=== PATIENT | male | born 1955 | race Two or more races ===

== ENCOUNTER 2018-07-18 07:15 | Inpatient (IN) | payer MEDICAID ==
[2018-07-18 07:15] VITALS: BMI 27.8
--- NOTE | 2018-07-18 07:57 | C.PDOC ---
History Of Present Illness GEN WEAKNESS, WT LOSS X 4 MO. PS ONSET SINCE STARTING SAL[facility] 4 MO AGO FOR PSORIASIS, NOW RESOLVED. +OPTIC FIBRE DRAWER COUGH 2 MO AGO, SAW ENT FOR SAME COMPLETED UNK ABX X 5 DAYS. +SOB COUGH 1 MO AGO, EVAL BY PULM S/P OUTPT [facility] CT CHEST 05/2018 +B/L EFFUSIONS PER REPORT, [facility] 07/05/18 WNL. +WT LOSS 22 LBS IN 3 MO. NO ABD PAIN, NV, FOCAL WEAKNESS. DENIES HO SMOKING. COUGH INTERMIT "GETS BETTER BUT THEN COMES BACK". PREV ON LISINOPRIL BUT NO LONGER X 2 MO "BC MY PRESSURE WAS TOO LOW"/ EXAM NONTOXIC HEENT ANICTERIC LUNGS CTA B/L NO W/R/R ABD NEG NEURO NO FOCAL DEF REMAINDER NEG Time Seen by Provider: 07/18/18 07:39 Chief Complaint (Nursing): Weakness/Neurological Deficit History Per: Patient History/Exam Limitations: no limitations Onset/Duration Of Symptoms: Days Current Symptoms Are (Timing): Still Present Severity: Moderate Past Medical History Reviewed: Historical Data, Nursing Documentation, Vital Signs Vital Signs: Last Vital Signs Temp 98.1 F 07/18/18 07:23 Pulse 76 07/18/18 07:23 Resp 18 07/18/18 07:23 BP 118/81 07/18/18 07:23 Pulse Ox 96 07/18/18 07:23 - Medical History PMH: HTN, Pneumonia Surgical History: Denies: Pacemaker Family History: States: No Known Family Hx - Social History Hx Alcohol Use: No Hx Substance Use: No Review Of Systems Except As Marked, All Systems Reviewed And Found Negative. Constitutional: Positive for: Weakness, Weight loss. Negative for: Fever, Chills Respiratory: Positive for: Cough Gastrointestinal: Negative for: Nausea, Vomiting, Abdominal Pain Physical Exam - Physical Exam Appears: Non-toxic Skin: Warm, Dry Head: Atraumatic, Normacephalic Eye(s): bilateral: Normal Inspection, Other (anicteric) Nose: Normal Oral Mucosa: Moist Neck: Supple Chest: Symmetrical Cardiovascular: Rhythm Regular Respiratory: Normal Breath Sounds, No Rales, No Rhonchi, No Wheezing Gastrointestinal/Abdominal: Normal Exam, Soft, No Tenderness, No Guarding, No Rebound Neurological/Psych: Oriented x3, Normal Speech, Other (no focal deficits) ED Course And Treatment - Laboratory Results Result Diagrams: 07/18/18 08:16 07/18/18 08:16 ECG: Interpreted By Me ECG Rhythm: Sinus Rhythm ECG Interpretation: Normal Rate From EC O2 Sat by Pulse Oximetry: 96 (RA) Pulse Ox Interpretation: Normal - Other Rad CXR X-Ray: Viewed By Me, Read By Radiologist Interpretation: Date of service: 07/18/2018. HISTORY: weakness. COMPARISON: No prior. TECHNIQUE: Chest PA and lateral views. FINDINGS: LUNGS: Asymmetrical elevation of the right hemidiaphragm of unknown chronicity noted. No consolidation appreciated. PLEURA: No significant pleural effusion identified. No pneumothorax apparent. CARDIOVASCULAR: No aortic atherosclerotic calcification present. Normal cardiac size. No pulmonary vascular congestion. OSSEOUS STRUCTURES: No significant abnormalities. VISUALIZED UPPER ABDOMEN: Normal. OTHER FINDINGS: None. IMPRESSION: Asymmetrical elevation of the right hemidiaphragm of unknown chronicity. Otherwise unremarkable exam. - CT Scan/US CT-Chest/Abd/Pelv. Other Rad Studies (CT/US): Read By Radiologist, Radiology Report Reviewed CT/US Interpretation: CT chest, abdomen, and pelvis with IV contrast. Indication: WT LOSS, ABN LEFT. Technique: Contiguous axial images of the chest, abdomen, and pelvis. Coronal and Sagittal reformats generated and reviewed. This CT exam was performed using 1 or more of the following dose reduction techniques: Automated exposure control, adjustment of the MAA and/or kV according to patient size, and/or use of iterative reconstruction technique. Contrast: 100 mL Omnipaque 300 IV. Radiation dose: Total exam DLP = 810.41 MGy-cm. Comparison: None available. Findings: Visualized portions of the inferior thyroid gland demonstrates numerous too small to characterize hypodense nodules. The mediastinal and hilar vascular structures appear within normal limits. The heart appears within normal limits of size. Prevascular/Mediastinal adenopathy measuring up to approximately 9 mm in short axis (pretracheal). Small to moderate right and trace left pleural effusions and associated consolidations. Patchy infiltrate at the right lung base may represent superimposed infection. Cluster of nodules in the right upper lobe measuring up to 6 mm. Innumerable tiny splenic hypodensities, indeterminate but worrisome for metastatic disease. Hypoattenuation of the liver compatible with hepatic steatosis. Question presence of serosal implant anterior to the left lobe of the liver. The kidneys enhance symmetrically. No evidence of hydronephrosis or obstructing calculus. The adrenal glands and gallbladder appear unremarkable. Prominent sub cm mesenteric adenopathy. Evidence of omental metastases. The stomach is nondistended but appears abnormal, thick-walled and edematous. The bowel loops appear within normal limits of caliber without evidence of intestinal obstruction. Apparent enhancement of small bowel loops, nonspecific. No definite free air. The prostate gland measures approximately 3.6 x 4.6 cm, appears heterogeneous, and contains calcification. The urinary bladder appears unremarkable. Small to moderate pelvic free fluid. Degenerative changes. Imp ression: Numerous too small to characterize thyroid hypodense nodules, indeterminate. Small to moderate right and trace left pleural effusions and associated consolidations. Patchy infiltrate at the right lung base may represent superimposed infection. Cluster of nodules in the right lung upper l obe measuring up to 6 mm. Innumerable tiny splenic hypodensities which are indeterminate but worrisome for metastatic disease. Hypoattenuation of the liver compatible with hepatic steatosis. Question presence of serosal implant anterior to the left lobe of the liver. Evidence of omental metastases. The stomach is nondistended but appears abnormal, thick-walled and edematous. Suggest clinical correlation further evaluation with endoscopy if indicated. Malignant neoplasm is not excluded. And parent enhancement of small bowel loops which is nonspecific. Heterogeneous enlarged prostate gland containing calcification. Recommend correlation with PSA. Small to moderate pelvic free fluid. Mediastinal/prevascular and mesenteric adenopathy, prominent but sub cm. Progress - Re-Evaluation Re-evaluation Note: 07/18/18 12:10 D/W DR MARIANO C/F PMD WILL ADMIT - Data Reviewed Data Reviewed: Lab, Diagnostic imaging, EKG, Old records Medical Decision Making Medical Decision Making: Plan: --Labs --UA --CXR --CT-Chest --CT- Abd & Pelv. Disposition Counseled Patient/Family Regarding: Studies Performed, Diagnosis - Disposition Disposition: HOSPITALIZED Disposition Time: 12:10 Condition: STABLE - POA Present On Arrival: None - Clinical Impression Clinical Impression: Hyponatremia, Generalized weakness, Multiple lesions of metastatic malignancy, Pneumonia - Scribe Statement The provider has reviewed the documentation as recorded by the Osmany Encinas Provider Attestation: All medical record entries made by the Osmany were at my direction and personally dictated by me. I have reviewed the chart and agree that the record accurately reflects my personal performance of the history, physical exam, medical decision making, and the department course for this patient. I have also personally directed, reviewed, and agree with the discharge instructions and disposition.
[2018-07-18 08:20] LABS: BASO % 0.4 % (0.0-2.0); EOS # 0.2 K/uL (0.0-0.7); EOS % 2.3 % (0.0-4.0); HEMOGLOBIN 13.3 g/dL (12.0-18.0); LYMPH # 0.7 K/uL (1.0-4.3); LYMPH % 8.4 % (20.0-40.0); MEAN CELL VOLUME 80.5 fL (80.0-94.0); MEAN CORPUSCULAR HEMOGLOBIN 26.7 pg (27.0-31.0); MEAN CORPUSCULAR HGB CONC 33.2 g/dL (33.0-37.0); MEAN PLATELET VOLUME 6.9 fL (7.2-11.7); MONO # 0.7 K/uL (0.0-0.8); MONO % 8.8 % (0.0-10.0); NEUT # 6.8 K/uL (1.8-7.0); NEUT % 80.1 % (50.0-75.0); NRBC % 0.1 % (0.0-2.0); PLATELET COUNT 287 K/uL (130-400); RBC 4.98 Mil/uL (4.40-5.90); RED CELL DISTRIBUTION WIDTH 17.3 % (11.5-14.5); WHITE BLOOD COUNT 8.5 K/uL (4.8-10.8)
[2018-07-18 08:35] LABS: ALBUMIN 4.2 g/dL (3.5-5.0); ALT/SGPT 89 U/L (21-72); AST/SGOT 67 U/L (17-59); BLOOD UREA NITROGEN 17 mg/dL (9-20); CALCIUM 9.3 mg/dl (8.6-10.4); GFR NON-AFRICAN AMERICAN > 60
[2018-07-18 08:44] LABS: B-TYPE NATRIURETIC PEPTIDE 41.9 pg/mL (0-900)
[2018-07-18 08:45] LABS: URINE AMORPHOUS SEDIMENT FEW /ul (<OCC); URINE BILIRUBIN NEGATIVE (NEGATIVE); URINE BLOOD 1+ (NEGATIVE); URINE CLARITY Turbid (Clear); URINE COLOR Amber (YELLOW); URINE GLUCOSE (UA) NORMAL (Normal); URINE LEUKOCYTE ESTERASE NEG Leu/uL (Negative); URINE PROTEIN 2+ mg/dL (NEGATIVE); URINE UROBILINOGEN NORMAL mg/dL (0.2-1.0)
[2018-07-18 08:46] LABS: BANDS 7 % (0-2); EOSINOPHIL 4 % (0-4); LYMPHOCYTE 9 % (20-40); MONOCYTE 8 % (0-10); NEUTROPHIL 72 % (50-75); PLATELET ESTIMATE NORMAL (NORMAL); TOTAL CELLS COUNTED 100
[2018-07-18 08:47] LABS: ANISOCYTOSIS SLIGHT
[2018-07-18] MEDS ORDERED: Iohexol 300 100 ML IJ ONE (09:25)
[2018-07-18 09:28] LABS: VENOUS BLOOD GAS BASE EXCESS -0.8 mmol/L (0.0-2.0); VENOUS BLOOD GAS PCO2 37 mmHg (40-60); VENOUS BLOOD GAS PO2 39 mm/Hg (30-55); VENOUS BLOOD PH 7.41 (7.32-7.43)
--- NOTE | 2018-07-18 09:48 | RAD ---
Date of service: 07/18/2018 HISTORY: weakness COMPARISON: No prior. TECHNIQUE: Chest PA and lateral views FINDINGS: LUNGS: Asymmetrical elevation of the right hemidiaphragm of unknown chronicity noted. No consolidation appreciated. PLEURA: No significant pleural effusion identified. No pneumothorax apparent. CARDIOVASCULAR: No aortic atherosclerotic calcification present. Normal cardiac size. No pulmonary vascular congestion. OSSEOUS STRUCTURES: No significant abnormalities. VISUALIZED UPPER ABDOMEN: Normal. OTHER FINDINGS: None. IMPRESSION: Asymmetrical elevation of the right hemidiaphragm of unknown chronicity. Otherwise unremarkable exam.
[2018-07-18] MEDS ORDERED: cefTRIAXone IV 1 gm in Dextros 50 ML IV STA (10:01)
[2018-07-18] MEDS ORDERED: Azithromycin 500 MG in Sodium Chloride 0.9% 250 ML IV STA (10:01)
[2018-07-18] MEDS ORDERED: Azithromycin 500mg/250ML NS 500 MG/250 ML BAG IVPB ONE (10:40)
--- NOTE | 2018-07-18 12:02 | CT ---
Date of service: 07/18/2018 CT chest, abdomen, and pelvis with IV contrast Indication: WT LOSS, ABN LEFT Technique: Contiguous axial images of the chest, abdomen, and pelvis. Coronal and Sagittal reformats generated and reviewed. This CT exam was performed using 1 or more of the following dose reduction techniques: Automated exposure control, adjustment of the MAA and/or kV according to patient size, and/or use of iterative reconstruction technique. Contrast: 100 mL Omnipaque 300 IV Radiation dose: Total exam DLP = 810.41 MGy-cm. Comparison: None available Findings: Visualized portions of the inferior thyroid gland demonstrates numerous too small to characterize hypodense nodules. The mediastinal and hilar vascular structures appear within normal limits. The heart appears within normal limits of size. Prevascular/Mediastinal adenopathy measuring up to approximately 9 mm in short axis (pretracheal) Small to moderate right and trace left pleural effusions and associated consolidations. Patchy infiltrate at the right lung base may represent superimposed infection. Cluster of nodules in the right upper lobe measuring up to 6 mm. Innumerable tiny splenic hypodensities, indeterminate but worrisome for metastatic disease. Hypoattenuation of the liver compatible with hepatic steatosis. Question presence of serosal implant anterior to the left lobe of the liver. The kidneys enhance symmetrically. No evidence of hydronephrosis or obstructing calculus. The adrenal glands and gallbladder appear unremarkable. Prominent sub cm mesenteric adenopathy. Evidence of omental metastases. The stomach is nondistended but appears abnormal, thick-walled and edematous. The bowel loops appear within normal limits of caliber without evidence of intestinal obstruction. Apparent enhancement of small bowel loops, nonspecific. No definite free air. The prostate gland measures approximately 3.6 x 4.6 cm, appears heterogeneous, and contains calcification. The urinary bladder appears unremarkable. Small to moderate pelvic free fluid. Degenerative changes. Impression: Numerous too small to characterize thyroid hypodense nodules, indeterminate. Small to moderate right and trace left pleural effusions and associated consolidations. Patchy infiltrate at the right lung base may represent superimposed infection. Cluster of nodules in the right lung upper lobe measuring up to 6 mm. Innumerable tiny splenic hypodensities which are indeterminate but worrisome for metastatic disease. Hypoattenuation of the liver compatible with hepatic steatosis. Question presence of serosal implant anterior to the left lobe of the liver. Evidence of omental metastases. The stomach is nondistended but appears abnormal, thick-walled and edematous. Suggest clinical correlation further evaluation with endoscopy if indicated. Malignant neoplasm is not excluded. And parent enhancement of small bowel loops which is nonspecific. Heterogeneous enlarged prostate gland containing calcification. Recommend correlation with PSA. Small to moderate pelvic free fluid. Mediastinal/prevascular and mesenteric adenopathy, prominent but sub cm. Additional findings as above. Case discussed with Dr. Solomon on 07/18/18 at 11:53 a.m.
[2018-07-18 14:06] LABS: INR 1.5; PROTHROMBIN TIME 16.9 SECONDS (9.7-12.2)
[2018-07-18] MEDS ORDERED: Albuterol-Ipratrop 3 mg / 0.5 (3 ml) UD INH PRN (14:12)
--- NOTE | 2018-07-18 14:36 | CP.PCM.HP ---
<BennyBandar cantrell - Last Filed: 07/18/18 14:23> History of Present Illness - History of Present Illness History of Present Illness: PGY-1 History and [address] Mejia Patient is a 62 year old male with past medical history of hypertension, hyperlipidemia, BPH, asthma, diabetes, recent pneumonia presenting to ED with generalized weakness for the past 4 months with associated intermittent shortness of breath and dry, nonproductive cough. Patient states he initially went to an ENT doctor 4 months ago and was diagnosed with asthma, was given an inhaler but his cough/shortness of breath did not improve. He was then evaluated by Pulmonology and CT chest obtained demonstrated bilateral pleural effusions, R>L. He was given unknown antibiotics and lasix. He states the lasix helped with his respiratory symptoms for a little bit but that the cough is recurring. The past few days, he has felt very weak in his b/l LE and states it is difficult for him to get out of bed sometimes. Of note, patient has unintentional weight loss (~22 lbs within the last 3 months) and decreased appetite during this time. He denies any fevers but does endorse chills sometimes. No headaches, dizziness, LOC, vision changes, chest pain, palpitations, abdominal pain, nausea/vomiting/diarrhea, dysuria, changes in stool, hematemesis or hematochezia. No recent travel or sick contacts. PMHx: HTN, HLD, DM, asthma, BPH PSHx: colonoscopy with polypectomy (05/2015) Allergies: NKDA Home Meds: as per chart Social Hx: denies any alcohol, tobacco, or illicit drug use Family Hx: Father, 2 brothers--CVA; Mother--HTN, DM. No known history of cancer PMD: Dr. Hudson Pulm: Dr. Barger Present on Admission - Present on Admission Any Indicators Present on Admission: Yes Review of Systems - Review of Systems All systems: reviewed and no additional remarkable complaints except Review of Systems: as per HPI Past Patient History - Infectious Disease Hx of Infectious Diseases: None - Past Social History Smoking Status: Never Smoked - CARDIAC Hx Hypertension: Yes Hx Pacemaker: No - PULMONARY Hx Pneumonia: Yes - NEUROLOGICAL HX Cerebrovascular Accident: Yes Hx Paralysis: No - ENDOCRINE/METABOLIC Hx Diabetes Mellitus Type 2: Yes - HEMATOLOGICAL/ONCOLOGICAL Hx Blood Transfusions: No Hx Blood Transfusion Reaction: No - MUSCULOSKELETAL/RHEUMATOLOGICAL Hx Musculoskeletal Disorders: No - PSYCHIATRIC Hx Substance Use: No - SURGICAL HISTORY Hx Surgeries: No - ANESTHESIA Hx Anesthesia: No Hx Anesthesia Reactions: No Hx Malignant Hyperthermia: No Meds Allergies/Adverse Reactions: Allergies Allergy/AdvReac Type Severity Reaction Status Date / Time No Known Allergies Allergy Verified 07/18/18 07:28 Physical Exam - Constitutional Appears: Non-toxic, No Acute Distress - Head Exam Head Exam: ATRAUMATIC, NORMAL INSPECTION, NORMOCEPHALIC - Eye Exam Eye Exam: EOMI, Normal appearance, PERRL. absent: Scleral icterus Pupil Exam: NORMAL ACCOMODATION - ENT Exam ENT Exam: Mucous Membranes Moist, Normal Exam - Neck Exam Neck exam: Positive for: Full Rom, Normal Inspection. Negative for: Lymphadenopathy, Tenderness - Respiratory Exam Respiratory Exam: Clear to Auscultation Bilateral, Rales, NORMAL BREATHING PATTERN. absent: Accessory Muscle Use, Rhonchi, Wheezes, Respiratory Distress, Stridor - Cardiovascular Exam Cardiovascular Exam: REGULAR RHYTHM, +S1, +S2 - GI/Abdominal Exam GI & Abdominal Exam: Distended, Normal Bowel Sounds, Soft. absent: Firm, Guarding, Rebound, Rigid, Tenderness - Extremities Exam Extremities exam: Positive for: full ROM, normal capillary refill, normal inspection, pedal pulses present. Negative for: calf tenderness, pedal edema - Back Exam Back exam: NORMAL INSPECTION - Neurological Exam Neurological exam: Alert, CN II-XII Intact, Normal Gait, Oriented x3 - Skin Skin Exam: Dry, Intact, Normal Color, Warm Results - Vital Signs Recent Vital Signs: Last Vital Signs Temp 99 F 07/18/18 12:12 Pulse 73 07/18/18 12:12 Resp 15 07/18/18 12:12 BP 107/72 07/18/18 12:12 Pulse Ox 96 07/18/18 12:54 - Labs Result Diagrams: 07/18/18 08:16 07/18/18 08:16 Labs: Laboratory Results - last 24 hr 07/18/18 07/18/18 07/18/18 08:16 08:16 08:16 WBC 8.5 RBC 4.98 Hgb 13.3 Hct 40.1 MCV 80.5 MCH 26.7 L MCHC 33.2 RDW 17.3 H Plt Count 287 MPV 6.9 L Neut % (Auto) 80.1 H Lymph % (Auto) 8.4 L [place] % (Auto) 8.8 Eos % (Auto) 2.3 Baso % (Auto) 0.4 Neut # (Auto) 6.8 Lymph # (Auto) 0.7 L [place] # (Auto) 0.7 Eos # (Auto) 0.2 Baso # (Auto) 0.0 Neutrophils % (Manual) 72 Band Neutrophils % 7 H Lymphocytes % (Manual) 9 L Monocytes % (Manual) 8 Eosinophils % (Manual) 4 Platelet Estimate Normal Anisocytosis (manual) Slight PT INR APTT pO2 VBG pH VBG pCO2 VBG HCO3 VBG Total CO2 VBG O2 Sat (Calc) VBG Base Excess VBG Potassium Glucose Lactate Sodium 128 L Potassium 4.1 Chloride 96 L Carbon Dioxide 21 L Anion Gap 15 BUN 17 Creatinine 1.0 Est GFR ( Amer) > 60 Est GFR (Non-Af Amer) > 60 Random Glucose 151 H Hemoglobin A1c Calcium 9.3 Total Bilirubin 0.7 AST 67 H ALT 89 H Alkaline Phosphatase 214 H Troponin I < 0.0120 NT-Pro-B Natriuret Pep 41.9 Total Protein 8.4 H Albumin 4.2 Globulin 4.2 H Albumin/Globulin Ratio 1.0 Carcinoembryonic Ag CA 19-9 Antigen Free T4 TSH 3rd Generation Venous Blood Potassium Urine Color Elvia Urine Clarity Turbid Urine pH 5.0 Ur Specific [place] 1.031 H Urine Protein 2+ H Urine Glucose (UA) Normal Urine Ketones Negative Urine Blood 1+ H Urine Nitrate Negative Urine Bilirubin Negative Urine Urobilinogen Normal Ur Leukocyte Esterase Neg Urine WBC (Auto) 4 Amorphous Sediment Few H 07/18/18 07/18/18 07/18/18 09:25 13:20 13:20 WBC RBC Hgb Hct MCV MCH MCHC RDW Plt Count MPV Neut % (Auto) Lymph % (Auto) [place] % (Auto) Eos % (Auto) Baso % (Auto) Neut # (Auto) Lymph # (Auto) [place] # (Auto) Eos # (Auto) Baso # (Auto) Neutrophils % (Manual) Band Neutrophils % Lymphocytes % (Manual) Monocytes % (Manual) Eosinophils % (Manual) Platelet Estimate Anisocytosis (manual) PT INR APTT pO2 39 VBG pH 7.41 VBG pCO2 37 L VBG HCO3 23.7 VBG Total CO2 24.6 VBG O2 Sat (Calc) 67.7 H VBG Base Excess -0.8 L VBG Potassium 3.5 L Glucose 123 H Lactate 1.5 Sodium 131.0 L Potassium Chloride 99.0 Carbon Dioxide Anion Gap BUN Creatinine Est GFR ( Amer) Est GFR (Non-Af Amer) Random Glucose Hemoglobin A1c 5.7 Calcium Total Bilirubin AST ALT Alkaline Phosphatase Troponin I NT-Pro-B Natriuret Pep Total Protein Albumin Globulin Albumin/Globulin Ratio Carcinoembryonic Ag 0.7 CA 19-9 Antigen 39.1 H Free T4 TSH 3rd Generation 1.65 Venous Blood Potassium 3.5 L Urine Color Urine Clarity Urine pH Ur Specific [place] Urine Protein Urine Glucose (UA) Urine Ketones Urine Blood Urine Nitrate Urine Bilirubin Urine Urobilinogen Ur Leukocyte Esterase Urine WBC (Auto) Amorphous Sediment 07/18/18 07/18/18 13:20 13:49 WBC RBC Hgb Hct MCV MCH MCHC RDW Plt Count MPV Neut % (Auto) Lymph % (Auto) [place] % (Auto) Eos % (Auto) Baso % (Auto) Neut # (Auto) Lymph # (Auto) [place] # (Auto) Eos # (Auto) Baso # (Auto) Neutrophils % (Manual) Band Neutrophils % Lymphocytes % (Manual) Monocytes % (Manual) Eosinophils % (Manual) Platelet Estimate Anisocytosis (manual) PT 16.9 H INR 1.5 APTT 32 pO2 VBG pH VBG pCO2 VBG HCO3 VBG Total CO2 VBG O2 Sat (Calc) VBG Base Excess VBG Potassium Glucose Lactate Sodium Potassium Chloride Carbon Dioxide Anion Gap BUN Creatinine Est GFR ( Amer) Est GFR (Non-Af Amer) Random Glucose Hemoglobin A1c Calcium Total Bilirubin AST ALT Alkaline Phosphatase Troponin I NT-Pro-B Natriuret Pep Total Protein Albumin Globulin Albumin/Globulin Ratio Carcinoembryonic Ag CA 19-9 Antigen Free T4 1.81 TSH 3rd Generation Venous Blood Potassium Urine Color Urine Clarity Urine pH Ur Specific [place] Urine Protein Urine Glucose (UA) Urine Ketones Urine Blood Urine Nitrate Urine Bilirubin Urine Urobilinogen Ur Leukocyte Esterase Urine WBC (Auto) Amorphous Sediment Assessment & Plan - Assessment and Plan (Free Text) Assessment: 62 year old male with PMHx of HTN, HLD, DM, asthma, BPH, recent PNA presenting to ED with generalized weakness, dry cough with associated sob x 4 months. Unintentional weight loss within the last 3 months, b/l pleural effusions noted on CT chest with multiple mets of unknown origin. Plan: Shortness of breath, dry cough B/L Pleural effusions r/o CAP -mycoplasma -urine legionella -influenza -quantiferon -CT chest report (06/06/18): prominent b/l pleural effusions, R>L, subsegmental atelectasis at b/l lung bases, focal calcified plaque invovling L coronary artery and thoracic aorta. Fatty changes of the liver. Heterogenous attenuation and enhancement of thyroid gland. -CTA of the chest w/ contrast report (06/06/18): no evidence of PE. . CXR on admission: asymmetric elevation of R hemidiaphragm, unknown chronicity CT chest on admission: Small to moderate R pleural effusion, trace L pleural effusion both with associated consolidations. Patchy infiltrate at R lung base may represent superimposed infection -s/p azithro/rocephin x 1 in ED -resume home lasix 40 mg PO daily -c/w empiric CAP rx -Azithromycin 500 mg PO daily -Rocephin 1 gm IV daily Multiple metastases of unknown origin -unintentional weight loss (~10 kg in last 3 months) -decreased appetite -CT chest/abdomen/pelvis: Numerous too small to characterize thyroid nodules. Cluster of nodules in RUL lung up to 6mm. Innumerable tiny splenic hypodensities. Hepatic steatosis. Questional presence of serosal implant anterio r to L hepatic lobe. Evidence of omental mets. Stomach is nondistended but thick-walled and edematous. Small to moderate pelvic free fluid. Mediastinal/prevascular and mesenteric adenopathy. -Heme/Onc (Dr. Brown) consulted Hx of asthma (?) -PFT report (06/13): Reduced FEV1 and FVC but FEV1/FVC ratio is increased. The MVV is reduced. The slow vital capacity is reduced. Following administration of bronchodilators, there is no significant response. The reduction in FVC suggests a restrictive process. -duonebs 3q4 prn Hx of BPH -CT abdomen/pelvis: Heterogenous enlarged prostate gland containing calcification -f/u PSA, free and total -restart home meds -tamsulosin 0.4 mg PO daily -finasteride 5 mg PO daily DM -not on any home meds -BG 151 on admission, continue to monitor -f/u A1C Hx of HTN -restart home meds -Lopressor 50 mg PO daily -ASA 81 mg PO daily Hx of HLD -Crestor 10 mg PO HS PPx, Diet, Disposition -DVT ppx: scds, heparin 5000 units sc q8h -GI ppx: not indicated at this time -Diet: HHD -PT on board Case discussed with Dr. Jackie Yo DO, PGY-1 <Polo Mejia - Last Filed: 07/18/18 15:47> Results - Vital Signs Recent Vital Signs: Last Vital Signs Temp 98.7 F 07/18/18 15:17 Pulse 73 07/18/18 15:17 Resp 16 07/18/18 15:17 BP 115/71 07/18/18 15:17 Pulse Ox 95 07/18/18 15:17 - Labs Result Diagrams: 07/18/18 08:16 07/18/18 08:16 Labs: Laboratory Results - last 24 hr 07/18/18 07/18/18 07/18/18 08:16 08:16 08:16 WBC 8.5 RBC 4.98 Hgb 13.3 Hct 40.1 MCV 80.5 MCH 26.7 L MCHC 33.2 RDW 17.3 H Plt Count 287 MPV 6.9 L Neut % (Auto) 80.1 H Lymph % (Auto) 8.4 L [place] % (Auto) 8.8 Eos % (Auto) 2.3 Baso % (Auto) 0.4 Neut # (Auto) 6.8 Lymph # (Auto) 0.7 L [place] # (Auto) 0.7 Eos # (Auto) 0.2 Baso # (Auto) 0.0 Neutrophils % (Manual) 72 Band Neutrophils % 7 H Lymphocytes % (Manual) 9 L Monocytes % (Manual) 8 Eosinophils % (Manual) 4 Platelet Estimate Normal Anisocytosis (manual) Slight PT INR APTT pO2 VBG pH VBG pCO2 VBG HCO3 VBG Total CO2 VBG O2 Sat (Calc) VBG Base Excess VBG Potassium Glucose Lactate Sodium 128 L Potassium 4.1 Chloride 96 L Carbon Dioxide 21 L Anion Gap 15 BUN 17 Creatinine 1.0 Est GFR ( Amer) > 60 Est GFR (Non-Af Amer) > 60 Random Glucose 151 H Hemoglobin A1c Calcium 9.3 Total Bilirubin 0.7 AST 67 H ALT 89 H Alkaline Phosphatase 214 H Troponin I < 0.0120 NT-Pro-B Natriuret Pep 41.9 Total Protein 8.4 H Albumin 4.2 Globulin 4.2 H Albumin/Globulin Ratio 1.0 Carcinoembryonic Ag CA 19-9 Antigen Free T4 TSH 3rd Generation Venous Blood Potassium Urine Color Elvia Urine Clarity Turbid Urine pH 5.0 Ur Specific [place] 1.031 H Urine Protein 2+ H Urine Glucose (UA) Normal Urine Ketones Negative Urine Blood 1+ H Urine Nitrate Negative Urine Bilirubin Negative Urine Urobilinogen Normal Ur Leukocyte Esterase Neg Urine WBC (Auto) 4 Amorphous Sediment Few H Influenza Typ A,B (EIA) 07/18/18 07/18/18 07/18/18 09:25 13:20 13:20 WBC RBC Hgb Hct MCV MCH MCHC RDW Plt Count MPV Neut % (Auto) Lymph % (Auto) [place] % (Auto) Eos % (Auto) Baso % (Auto) Neut # (Auto) Lymph # (Auto) [place] # (Auto) Eos # (Auto) Baso # (Auto) Neutrophils % (Manual) Band Neutrophils % Lymphocytes % (Manual) Monocytes % (Manual) Eosinophils % (Manual) Platelet Estimate Anisocytosis (manual) PT INR APTT pO2 39 VBG pH 7.41 VBG pCO2 37 L VBG HCO3 23.7 VBG Total CO2 24.6 VBG O2 Sat (Calc) 67.7 H VBG Base Excess -0.8 L VBG Potassium 3.5 L Glucose 123 H Lactate 1.5 Sodium 131.0 L Potassium Chloride 99.0 Carbon Dioxide Anion Gap BUN Creatinine Est GFR ( Amer) Est GFR (Non-Af Amer) Random Glucose Hemoglobin A1c 5.7 Calcium Total Bilirubin AST ALT Alkaline Phosphatase Troponin I NT-Pro-B Natriuret Pep Total Protein Albumin Globulin Albumin/Globulin Ratio Carcinoembryonic Ag 0.7 CA 19-9 Antigen 39.1 H Free T4 TSH 3rd Generation 1.65 Venous Blood Potassium 3.5 L Urine Color Urine Clarity Urine pH Ur Specific [place] Urine Protein Urine Glucose (UA) Urine Ketones Urine Blood Urine Nitrate Urine Bilirubin Urine Urobilinogen Ur Leukocyte Esterase Urine WBC (Auto) Amorphous Sediment Influenza Typ A,B (EIA) 07/18/18 07/18/18 07/18/18 13:20 13:49 15:08 WBC RBC Hgb Hct MCV MCH MCHC RDW Plt Count MPV Neut % (Auto) Lymph % (Auto) [place] % (Auto) Eos % (Auto) Baso % (Auto) Neut # (Auto) Lymph # (Auto) [place] # (Auto) Eos # (Auto) Baso # (Auto) Neutrophils % (Manual) Band Neutrophils % Lymphocytes % (Manual) Monocytes % (Manual) Eosinophils % (Manual) Platelet Estimate Anisocytosis (manual) PT 16.9 H INR 1.5 APTT 32 pO2 VBG pH VBG pCO2 VBG HCO3 VBG Total CO2 VBG O2 Sat (Calc) VBG Base Excess VBG Potassium Glucose Lactate Sodium Potassium Chloride Carbon Dioxide Anion Gap BUN Creatinine Est GFR ( Amer) Est GFR (Non-Af Amer) Random Glucose Hemoglobin A1c Calcium Total Bilirubin AST ALT Alkaline Phosphatase Troponin I NT-Pro-B Natriuret Pep Total Protein Albumin Globulin Albumin/Globulin Ratio Carcinoembryonic Ag CA 19-9 Antigen Free T4 1.81 TSH 3rd Generation Venous Blood Potassium Urine Color Urine Clarity Urine pH Ur Specific [place] Urine Protein Urine Glucose (UA) Urine Ketones Urine Blood Urine Nitrate Urine Bilirubin Urine Urobilinogen Ur Leukocyte Esterase Urine WBC (Auto) Amorphous Sediment Influenza Typ A,B (EIA) Negative for flu a/b Attending/Attestation - Attestation I have personally seen and examined this patient.: Yes I have fully participated in the care of the patient.: Yes I have reviewed all pertinent clinical information: Yes Notes (Text): seen and examined in the ER. Patient is c/o weakness and weight loss,denies nausea,no vomiting,no abdominal pain. Has constipation. Had colonoscopy two years ago and polypectomy. biopsy tubular adenoma.Had ct c/a/p at ER. Has right pleural effusion. numerable tiny splenic hypodensities. Hepatic steatosis. Questional presence of serosal implant anterior to L hepatic lobe. Evidence of omental mets. Stomach is nondistended but thick-walled and edematous. Small to moderate pelvic free fluid. Mediastinal/prevascular and mesenteric adenopathy. 1. weight loss,possible malignancy 2.DM 3.Pleural effusion
--- NOTE | 2018-07-18 16:41 | CP.PCM.CON ---
<Otilia Joseph - Last Filed: 07/18/18 17:25> History of Present Illness - History of Present Illness History of Present Illness: Gastroenterology Fellow/PGY6 Consult Note 62 year old male with PMH of CVA, Psoriasis (prior Humira for 3 months, stopped 3months), HTN, Diabetes, HLD, and constipation presenting with weakness. Notes onset of sudden weakness and loss of strength in legs last night leading to ER presentation. Admits to weakness for last four months with onset of shortness of breath and dry cough shortly after starting Humira. ENT with laryngoscopy was normal four months ago and diagnosed with asthma on inhaler. Evaluated by pulmonology for pleural effusions and pneumonia- s/p antibiotics three months ago and continued on lasix for pleural effusions as off last office visit one week ago. Admits to daily hard, small caliber stools with straining. Denies ongoing rectal bleeding with prior history of constipation in 2015. Notes 20-25 pound unintentional weight loss over the last three months. Denies nausea, vomiting, abdominal pain, heartburn, acid reflux, diarrhea, melena, or hematochezia. Prior colonoscopy 05/2015 showed 5mm transverse sessile tubular adenoma, Grade II internal hemorrhoids, and recommended five year surveillance. Last office visit with Dr. Medrano 09/2015 for constipation with scant rectal bleeding with bowel movement recommending increase fiber/water intake and preparation-H and return if symptoms persist. Family History- denies stomach cancer, colon cancer Social History- denies tobacco,alcohol, illicit drug use Surgical History- none Review of Systems - Review of Systems Review of Systems: 12-point review of systems negative except for as above Past Patient History - Infectious Disease Hx of Infectious Diseases: None - Past Social History Smoking Status: Never Smoked - CARDIAC Hx Hypertension: Yes Hx Pacemaker: No - PULMONARY Hx Pneumonia: Yes - NEUROLOGICAL HX Cerebrovascular Accident: Yes Hx Paralysis: No - ENDOCRINE/METABOLIC Hx Diabetes Mellitus Type 2: Yes - HEMATOLOGICAL/ONCOLOGICAL Hx Blood Transfusions: No Hx Blood Transfusion Reaction: No - MUSCULOSKELETAL/RHEUMATOLOGICAL Hx Musculoskeletal Disorders: No - PSYCHIATRIC Hx Substance Use: No - SURGICAL HISTORY Hx Surgeries: No - ANESTHESIA Hx Anesthesia: No Hx Anesthesia Reactions: No Hx Malignant Hyperthermia: No Meds Allergies/Adverse Reactions: Allergies Allergy/AdvReac Type Severity Reaction Status Date / Time No Known Allergies Allergy Verified 07/18/18 07:28 - Medications Medications: Current Medications Albuterol/Ipratropium (Duoneb 3 Mg/0.5 Mg (3 Ml) Ud) 3 ml INH RQ4 PRN PRN Reason: Shortness of Breath Aspirin (Aspirin Chewable) 81 mg PO DAILY [facility] Azithromycin (Zithromax) 500 mg PO DAILY [facility]; Protocol Finasteride (Proscar) 5 mg PO DAILY [facility] Furosemide (Lasix) 40 mg PO DAILY [facility] Heparin Sodium (Porcine) (Heparin) 5,000 units SC Q8 [facility] Last Admin: 07/18/18 13:56 Dose: 5,000 units Ceftriaxone Sodium 1 gm/ (Sodium Chloride) 100 mls @ 100 mls/hr IVPB DAILY [facility]; Protocol Influenza Virus Vaccine (Flucelvax Quad [id number] Syr) 60 mcg IM .ONCE ONE Stop: 07/20/18 10:01 Metoprolol Tartrate (Lopressor) 50 mg PO DAILY [facility] Pneumococcal Polyvalent Vaccine (Pneumovax 23 Vaccine) 0.5 ml IM .ONCE ONE Stop: 07/20/18 10:01 Polyethylene Glycol (Miralax) 17 gm PO BID [facility] Potassium Chloride (K-Dur 20 Meq Er Tab) 20 meq PO BRK [facility] Rosuvastatin Calcium (Crestor) 5 mg PO HS [facility] Tamsulosin HCl (Flomax) 0.4 mg PO DAILY [facility] Zinc Sulfate (Zinc Sulfate 220 Mg Cap) 220 mg PO DAILY [facility] Physical Exam - Constitutional Appears: Non-toxic, No Acute Distress - Head Exam Head Exam: ATRAUMATIC, NORMOCEPHALIC - Eye Exam Eye Exam: EOMI, PERRL. absent: Scleral icterus Pupil Exam: PERRL. absent: Miosis, Mydriatic - ENT Exam ENT Exam: Mucous Membranes Moist, Normal Oropharynx - Neck Exam Neck exam: Positive for: Full Rom, Normal Inspection - Respiratory Exam Respiratory Exam: Decreased Breath Sounds. absent: Rales, Rhonchi, Wheezes - Cardiovascular Exam Cardiovascular Exam: RRR, +S1, +S2. absent: Gallop, Rubs - GI/Abdominal Exam GI & Abdominal Exam: Normal Bowel Sounds, Soft. absent: Distended, Firm, Guarding, Organomegaly, Rebound, Rigid, Tenderness - Extremities Exam Extremities exam: Positive for: normal inspection. Negative for: pedal edema - Neurological Exam Neurological exam: Alert - Psychiatric Exam Psychiatric exam: Normal Affect, Normal Mood - Skin Skin Exam: Dry, Intact, Normal Color, Warm Results - Vital Signs Recent Vital Signs: Last Vital Signs Temp 98.7 F 07/18/18 15:17 Pulse 73 07/18/18 15:17 Resp 16 07/18/18 15:17 BP 115/71 07/18/18 15:17 Pulse Ox 95 07/18/18 15:17 - Labs Result Diagrams: 07/18/18 08:16 07/18/18 08:16 Labs: Laboratory Results - last 24 hr 07/18/18 07/18/18 07/18/18 08:16 08:16 08:16 WBC 8.5 RBC 4.98 Hgb 13.3 Hct 40.1 MCV 80.5 MCH 26.7 L MCHC 33.2 RDW 17.3 H Plt Count 287 MPV 6.9 L Neut % (Auto) 80.1 H Lymph % (Auto) 8.4 L [place] % (Auto) 8.8 Eos % (Auto) 2.3 Baso % (Auto) 0.4 Neut # (Auto) 6.8 Lymph # (Auto) 0.7 L [place] # (Auto) 0.7 Eos # (Auto) 0.2 Baso # (Auto) 0.0 Neutrophils % (Manual) 72 Band Neutrophils % 7 H Lymphocytes % (Manual) 9 L Monocytes % (Manual) 8 Eosinophils % (Manual) 4 Platelet Estimate Normal Anisocytosis (manual) Slight ESR PT INR APTT pO2 VBG pH VBG pCO2 VBG HCO3 VBG Total CO2 VBG O2 Sat (Calc) VBG Base Excess VBG Potassium Glucose Lactate Sodium 128 L Potassium 4.1 Chloride 96 L Carbon Dioxide 21 L Anion Gap 15 BUN 17 Creatinine 1.0 Est GFR ( Amer) > 60 Est GFR (Non-Af Amer) > 60 Random Glucose 151 H Hemoglobin A1c Calcium 9.3 Total Bilirubin 0.7 AST 67 H ALT 89 H Alkaline Phosphatase 214 H Troponin I < 0.0120 C-Reactive Protein NT-Pro-B Natriuret Pep 41.9 Total Protein 8.4 H Albumin 4.2 Globulin 4.2 H Albumin/Globulin Ratio 1.0 Lipase Carcinoembryonic Ag CA 19-9 Antigen Prostate Specific Ag Free T4 TSH 3rd Generation Venous Blood Potassium Urine Color Elvia Urine Clarity Turbid Urine pH 5.0 Ur Specific [place] 1.031 H Urine Protein 2+ H Urine Glucose (UA) Normal Urine Ketones Negative Urine Blood 1+ H Urine Nitrate Negative Urine Bilirubin Negative Urine Urobilinogen Normal Ur Leukocyte Esterase Neg Urine WBC (Auto) 4 Amorphous Sediment Few H Influenza Typ A,B (EIA) Ur L.pneumophila Ag 07/18/18 07/18/18 07/18/18 09:25 13:20 13:20 WBC RBC Hgb Hct MCV MCH MCHC RDW Plt Count MPV Neut % (Auto) Lymph % (Auto) [place] % (Auto) Eos % (Auto) Baso % (Auto) Neut # (Auto) Lymph # (Auto) [place] # (Auto) Eos # (Auto) Baso # (Auto) Neutrophils % (Manual) Band Neutrophils % Lymphocytes % (Manual) Monocytes % (Manual) Eosinophils % (Manual) Platelet Estimate Anisocytosis (manual) ESR PT INR APTT pO2 39 VBG pH 7.41 VBG pCO2 37 L VBG HCO3 23.7 VBG Total CO2 24.6 VBG O2 Sat (Calc) 67.7 H VBG Base Excess -0.8 L VBG Potassium 3.5 L Glucose 123 H Lactate 1.5 Sodium 131.0 L Potassium Chloride 99.0 Carbon Dioxide Anion Gap BUN Creatinine Est GFR ( Amer) Est GFR (Non-Af Amer) Random Glucose Hemoglobin A1c 5.7 Calcium Total Bilirubin AST ALT Alkaline Phosphatase Troponin I C-Reactive Protein NT-Pro-B Natriuret Pep Total Protein Albumin Globulin Albumin/Globulin Ratio Lipase Carcinoembryonic Ag 0.7 CA 19-9 Antigen 39.1 H Prostate Specific Ag Free T4 TSH 3rd Generation 1.65 Venous Blood Potassium 3.5 L Urine Color Urine Clarity Urine pH Ur Specific [place] Urine Protein Urine Glucose (UA) Urine Ketones Urine Blood Urine Nitrate Urine Bilirubin Urine Urobilinogen Ur Leukocyte Esterase Urine WBC (Auto) Amorphous Sediment Influenza Typ A,B (EIA) Ur L.pneumophila Ag 07/18/18 07/18/18 07/18/18 13:20 13:49 15:08 WBC RBC Hgb Hct MCV MCH MCHC RDW Plt Count MPV Neut % (Auto) Lymph % (Auto) [place] % (Auto) Eos % (Auto) Baso % (Auto) Neut # (Auto) Lymph # (Auto) [place] # (Auto) Eos # (Auto) Baso # (Auto) Neutrophils % (Manual) Band Neutrophils % Lymphocytes % (Manual) Monocytes % (Manual) Eosinophils % (Manual) Platelet Estimate Anisocytosis (manual) ESR PT 16.9 H INR 1.5 APTT 32 pO2 VBG pH VBG pCO2 VBG HCO3 VBG Total CO2 VBG O2 Sat (Calc) VBG Base Excess VBG Potassium Glucose Lactate Sodium Potassium Chloride Carbon Dioxide Anion Gap BUN Creatinine Est GFR ( Amer) Est GFR (Non-Af Amer) Random Glucose Hemoglobin A1c Calcium Total Bilirubin AST ALT Alkaline Phosphatase Troponin I C-Reactive Protein NT-Pro-B Natriuret Pep Total Protein Albumin Globulin Albumin/Globulin Ratio Lipase Carcinoembryonic Ag CA 19-9 Antigen Prostate Specific Ag Free T4 1.81 TSH 3rd Generation Venous Blood Potassium Urine Color Urine Clarity Urine pH Ur Specific [place] Urine Protein Urine Glucose (UA) Urine Ketones Urine Blood Urine Nitrate Urine Bilirubin Urine Urobilinogen Ur Leukocyte Esterase Urine WBC (Auto) Amorphous Sediment Influenza Typ A,B (EIA) Ur L.pneumophila Ag Negative 07/18/18 07/18/18 07/18/18 15:08 15:08 15:08 WBC RBC Hgb Hct MCV MCH MCHC RDW Plt Count MPV Neut % (Auto) Lymph % (Auto) [place] % (Auto) Eos % (Auto) Baso % (Auto) Neut # (Auto) Lymph # (Auto) [place] # (Auto) Eos # (Auto) Baso # (Auto) Neutrophils % (Manual) Band Neutrophils % Lymphocytes % (Manual) Monocytes % (Manual) Eosinophils % (Manual) Platelet Estimate Anisocytosis (manual) ESR 42 H PT INR APTT pO2 VBG pH VBG pCO2 VBG HCO3 VBG Total CO2 VBG O2 Sat (Calc) VBG Base Excess VBG Potassium Glucose Lactate Sodium Potassium Chloride Carbon Dioxide Anion Gap BUN Creatinine Est GFR ( Amer) Est GFR (Non-Af Amer) Random Glucose Hemoglobin A1c Calcium Total Bilirubin AST ALT Alkaline Phosphatase Troponin I C-Reactive Protein 25.70 H NT-Pro-B Natriuret Pep Total Protein Albumin Globulin Albumin/Globulin Ratio Lipase 126 Carcinoembryonic Ag CA 19-9 Antigen Prostate Specific Ag 3.67 Free T4 TSH 3rd Generation Venous Blood Potassium Urine Color Urine Clarity Urine pH Ur Specific [place] Urine Protein Urine Glucose (UA) Urine Ketones Urine Blood Urine Nitrate Urine Bilirubin Urine Urobilinogen Ur Leukocyte Esterase Urine WBC (Auto) Amorphous Sediment Influenza Typ A,B (EIA) Negative for flu a/b Ur L.pneumophila Ag Assessment & Plan - Assessment and Plan (Free Text) Assessment: 62 year old male with PMH of CVA, Psoriasis (prior Humira for 3 months, stopped 3months), HTN, Diabetes, HLD, and constipation presenting with weakness. Prior colonoscopy 05/2015 showed 5mm transverse sessile tubular adenoma, Grade II internal hemorrhoids, and recommended five year surveillance. Last office visit with Dr. Medrano 09/2015 for constipation with scant rectal bleeding with bowel movement recommending increase fiber/water intake and preparation-H and return if symptoms persist. Plan: -CT C/A/P IV contrast- concern for gastric thickening, right lung nodules, mediastinal and mesenteric adenopathy, splenic hypodensities, questionable hepatic serosal implant, omental metastases, small-moderate free pelvic fluid -differential includes lymphoma in setting of recent Humira and immunosupression -ordered LDH -discussed findings with patient- will plan for EGD for further intra-luminal evaluation tomorrow to evaluate for GI malignancy -NPO after midnight -elevated LFTs -ordered Hepatitis panel -ordered Abdominal Ultrasound with Duplex -negative CEA and CA 19-9 -start Miralax for bowel regimen -further recommendations after endoscopic evaluation on 07/19/18 <Sergey Medrano - Last Filed: 07/18/18 17:39> Meds - Medications Medications: Current Medications Albuterol/Ipratropium (Duoneb 3 Mg/0.5 Mg (3 Ml) Ud) 3 ml INH RQ4 PRN PRN Reason: Shortness of Breath Aspirin (Aspirin Chewable) 81 mg PO DAILY [facility] Azithromycin (Zithromax) 500 mg PO DAILY [facility]; Protocol Finasteride (Proscar) 5 mg PO DAILY [facility] Furosemide (Lasix) 40 mg PO DAILY [facility] Heparin Sodium (Porcine) (Heparin) 5,000 units SC Q8 [facility] Last Admin: 07/18/18 13:56 Dose: 5,000 units Ceftriaxone Sodium 1 gm/ (Sodium Chloride) 100 mls @ 100 mls/hr IVPB DAILY [facility]; Protocol Influenza Virus Vaccine (Flucelvax Quad [id number] Syr) 60 mcg IM .ONCE ONE Stop: 07/20/18 10:01 Metoprolol Tartrate (Lopressor) 50 mg PO DAILY [facility] Pneumococcal Polyvalent Vaccine (Pneumovax 23 Vaccine) 0.5 ml IM .ONCE ONE Stop: 07/20/18 10:01 Polyethylene Glycol (Miralax) 17 gm PO BID [facility] Polyethylene Glycol (Miralax) 17 gm PO DAILY [facility] Potassium Chloride (K-Dur 20 Meq Er Tab) 20 meq PO BRK [facility] Rosuvastatin Calcium (Crestor) 5 mg PO HS [facility] Tamsulosin HCl (Flomax) 0.4 mg PO DAILY [facility] Zinc Sulfate (Zinc Sulfate 220 Mg Cap) 220 mg PO DAILY [facility] Results - Vital Signs Recent Vital Signs: Last Vital Signs Temp 98.7 F 07/18/18 15:17 Pulse 73 07/18/18 15:17 Resp 16 07/18/18 15:17 BP 115/71 07/18/18 15:17 Pulse Ox 95 07/18/18 15:17 - Labs Result Diagrams: 07/18/18 08:16 07/18/18 08:16 Labs: Laboratory Results - last 24 hr 07/18/18 07/18/18 07/18/18 08:16 08:16 08:16 WBC 8.5 RBC 4.98 Hgb 13.3 Hct 40.1 MCV 80.5 MCH 26.7 L MCHC 33.2 RDW 17.3 H Plt Count 287 MPV 6.9 L Neut % (Auto) 80.1 H Lymph % (Auto) 8.4 L [place] % (Auto) 8.8 Eos % (Auto) 2.3 Baso % (Auto) 0.4 Neut # (Auto) 6.8 Lymph # (Auto) 0.7 L [place] # (Auto) 0.7 Eos # (Auto) 0.2 Baso # (Auto) 0.0 Neutrophils % (Manual) 72 Band Neutrophils % 7 H Lymphocytes % (Manual) 9 L Monocytes % (Manual) 8 Eosinophils % (Manual) 4 Platelet Estimate Normal Anisocytosis (manual) Slight ESR PT INR APTT pO2 VBG pH VBG pCO2 VBG HCO3 VBG Total CO2 VBG O2 Sat (Calc) VBG Base Excess VBG Potassium Glucose Lactate Sodium 128 L Potassium 4.1 Chloride 96 L Carbon Dioxide 21 L Anion Gap 15 BUN 17 Creatinine 1.0 Est GFR ( Amer) > 60 Est GFR (Non-Af Amer) > 60 Random Glucose 151 H Hemoglobin A1c Calcium 9.3 Total Bilirubin 0.7 AST 67 H ALT 89 H Alkaline Phosphatase 214 H Troponin I < 0.0120 C-Reactive Protein NT-Pro-B Natriuret Pep 41.9 Total Protein 8.4 H Albumin 4.2 Globulin 4.2 H Albumin/Globulin Ratio 1.0 Lipase Carcinoembryonic Ag CA 19-9 Antigen Prostate Specific Ag Free T4 TSH 3rd Generation Venous Blood Potassium Urine Color Elvia Urine Clarity Turbid Urine pH 5.0 Ur Specific [place] 1.031 H Urine Protein 2+ H Urine Glucose (UA) Normal Urine Ketones Negative Urine Blood 1+ H Urine Nitrate Negative Urine Bilirubin Negative Urine Urobilinogen Normal Ur Leukocyte Esterase Neg Urine WBC (Auto) 4 Amorphous Sediment Few H Influenza Typ A,B (EIA) Ur L.pneumophila Ag 07/18/18 07/18/18 07/18/18 09:25 13:20 13:20 WBC RBC Hgb Hct MCV MCH MCHC RDW Plt Count MPV Neut % (Auto) Lymph % (Auto) [place] % (Auto) Eos % (Auto) Baso % (Auto) Neut # (Auto) Lymph # (Auto) [place] # (Auto) Eos # (Auto) Baso # (Auto) Neutrophils % (Manual) Band Neutrophils % Lymphocytes % (Manual) Monocytes % (Manual) Eosinophils % (Manual) Platelet Estimate Anisocytosis (manual) ESR PT INR APTT pO2 39 VBG pH 7.41 VBG pCO2 37 L VBG HCO3 23.7 VBG Total CO2 24.6 VBG O2 Sat (Calc) 67.7 H VBG Base Excess -0.8 L VBG Potassium 3.5 L Glucose 123 H Lactate 1.5 Sodium 131.0 L Potassium Chloride 99.0 Carbon Dioxide Anion Gap BUN Creatinine Est GFR ( Amer) Est GFR (Non-Af Amer) Random Glucose Hemoglobin A1c 5.7 Calcium Total Bilirubin AST ALT Alkaline Phosphatase Troponin I C-Reactive Protein NT-Pro-B Natriuret Pep Total Protein Albumin Globulin Albumin/Globulin Ratio Lipase Carcinoembryonic Ag 0.7 CA 19-9 Antigen 39.1 H Prostate Specific Ag Free T4 TSH 3rd Generation 1.65 Venous Blood Potassium 3.5 L Urine Color Urine Clarity Urine pH Ur Specific [place] Urine Protein Urine Glucose (UA) Urine Ketones Urine Blood Urine Nitrate Urine Bilirubin Urine Urobilinogen Ur Leukocyte Esterase Urine WBC (Auto) Amorphous Sediment Influenza Typ A,B (EIA) Ur L.pneumophila Ag 07/18/18 07/18/18 07/18/18 13:20 13:49 15:08 WBC RBC Hgb Hct MCV MCH MCHC RDW Plt Count MPV Neut % (Auto) Lymph % (Auto) [place] % (Auto) Eos % (Auto) Baso % (Auto) Neut # (Auto) Lymph # (Auto) [place] # (Auto) Eos # (Auto) Baso # (Auto) Neutrophils % (Manual) Band Neutrophils % Lymphocytes % (Manual) Monocytes % (Manual) Eosinophils % (Manual) Platelet Estimate Anisocytosis (manual) ESR PT 16.9 H INR 1.5 APTT 32 pO2 VBG pH VBG pCO2 VBG HCO3 VBG Total CO2 VBG O2 Sat (Calc) VBG Base Excess VBG Potassium Glucose Lactate Sodium Potassium Chloride Carbon Dioxide Anion Gap BUN Creatinine Est GFR ( Amer) Est GFR (Non-Af Amer) Random Glucose Hemoglobin A1c Calcium Total Bilirubin AST ALT Alkaline Phosphatase Troponin I C-Reactive Protein NT-Pro-B Natriuret Pep Total Protein Albumin Globulin Albumin/Globulin Ratio Lipase Carcinoembryonic Ag CA 19-9 Antigen Prostate Specific Ag Free T4 1.81 TSH 3rd Generation Venous Blood Potassium Urine Color Urine Clarity Urine pH Ur Specific [place] Urine Protein Urine Glucose (UA) Urine Ketones Urine Blood Urine Nitrate Urine Bilirubin Urine Urobilinogen Ur Leukocyte Esterase Urine WBC (Auto) Amorphous Sediment Influenza Typ A,B (EIA) Ur L.pneumophila Ag Negative 07/18/18 07/18/18 07/18/18 15:08 15:08 15:08 WBC RBC Hgb Hct MCV MCH MCHC RDW Plt Count MPV Neut % (Auto) Lymph % (Auto) [place] % (Auto) Eos % (Auto) Baso % (Auto) Neut # (Auto) Lymph # (Auto) [place] # (Auto) Eos # (Auto) Baso # (Auto) Neutrophils % (Manual) Band Neutrophils % Lymphocytes % (Manual) Monocytes % (Manual) Eosinophils % (Manual) Platelet Estimate Anisocytosis (manual) ESR 42 H PT INR APTT pO2 VBG pH VBG pCO2 VBG HCO3 VBG Total CO2 VBG O2 Sat (Calc) VBG Base Excess VBG Potassium Glucose Lactate Sodium Potassium Chloride Carbon Dioxide Anion Gap BUN Creatinine Est GFR ( Amer) Est GFR (Non-Af Amer) Random Glucose Hemoglobin A1c Calcium Total Bilirubin AST ALT Alkaline Phosphatase Troponin I C-Reactive Protein 25.70 H NT-Pro-B Natriuret Pep Total Protein Albumin Globulin Albumin/Globulin Ratio Lipase 126 Carcinoembryonic Ag CA 19-9 Antigen Prostate Specific Ag 3.67 Free T4 TSH 3rd Generation Venous Blood Potassium Urine Color Urine Clarity Urine pH Ur Specific [place] Urine Protein Urine Glucose (UA) Urine Ketones Urine Blood Urine Nitrate Urine Bilirubin Urine Urobilinogen Ur Leukocyte Esterase Urine WBC (Auto) Amorphous Sediment Influenza Typ A,B (EIA) Negative for flu a/b Ur L.pneumophila Ag Attending/Attestation - Attestation I have personally seen and examined this patient.: Yes I have fully participated in the care of the patient.: Yes I have reviewed all pertinent clinical information: Yes Notes (Text): 07/18/18 17:33 I have seen and examined patient with GI fellow. Agree with above documentation with the following additions. In brief, this is a 62 year old male with history of CVA, psoriasis (previously on humira, discontinued 3 months prior), DM, HTN who presents to hospital with complaint of progressive lower extremity weakness. He reports intermittent symptoms for the past 3 months with progressive fatigue, weakness, cough, and an unintentional weight loss of nearly 20 pounds during this time. He denies nausea, vomiting, abdominal pain, fever/chills, night sweats, diarrhea, rectal bleeding, or change in bowel habits. He had a colonoscopy 3 years ago which showed an adenomatous polyp and internal hemorrrhoids. Review of vitals from today are normal. 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
[2018-07-18] MEDS: POLYETHYLENE GLYCOL 3350 17 GM/Dose PACKET PO SCH ×3 (17:30→21:43)
[2018-07-18 17:48] LABS: HEPATITIS B SURFACE AG Negative (NEGATIVE)
[2018-07-18 17:55] LABS: HEPATITIS A IGM NEGATIVE (NEGATIVE); HEPATITIS B CORE AB NEGATIVE (NEGATIVE)
[2018-07-18 18:06] LABS: HEPATITIS C ANTIBODY NEGATIVE (NEGATIVE)
--- NOTE | 2018-07-18 19:54 | CP.PCM.CON ---
History of Present Illness - History of Present Illness History of Present Illness: 62 year old male with a history of HTN, CVA, psoriasis on Humara, presenting with progressive weakness, found to have radiographic concern for malignancy. The patient notes to starting Humara about 6 months ago for worsening psoriasis. He began to feel weak with this treatment and discontinued it. He notes to progressive cough and shortness of breath. He feels his appetite has declined and he has lost 20-30 pounds over the course of [address] C/A/P revealed irregularity involving the stomach with lung lesions, splenic lesions, omental disease, and lymphadenopathy. Past medical history: HTN, CVA, psoriasis Past surgical history: Denies Family history: Denies hematologic and oncologic problems Social history: Denies tobacco, alcohol, and illicit drug use. Allergies: NKA Review of systems: All remaining review of systems including HEENT, cardiovascular, respiratory, gastrointestinal, genitourinary, musculoskeletal, dermatologic, neurologic, and psychiatric are negative unless mentioned in the HPI. Past Patient History - Infectious Disease Hx of Infectious Diseases: None - Past Social History Smoking Status: Never Smoked - CARDIAC Hx Hypertension: Yes Hx Pacemaker: No - PULMONARY Hx Pneumonia: Yes - NEUROLOGICAL HX Cerebrovascular Accident: Yes Hx Paralysis: No - ENDOCRINE/METABOLIC Hx Diabetes Mellitus Type 2: Yes - HEMATOLOGICAL/ONCOLOGICAL Hx Blood Transfusions: No Hx Blood Transfusion Reaction: No - MUSCULOSKELETAL/RHEUMATOLOGICAL Hx Falls: No - PSYCHIATRIC Hx Substance Use: No - SURGICAL HISTORY Hx Surgeries: No - ANESTHESIA Hx Anesthesia: No Hx Anesthesia Reactions: No Hx Malignant Hyperthermia: No Meds Allergies/Adverse Reactions: Allergies Allergy/AdvReac Type Severity Reaction Status Date / Time No Known Allergies Allergy Verified 07/18/18 07:28 - Medications Medications: Current Medications Albuterol/Ipratropium (Duoneb 3 Mg/0.5 Mg (3 Ml) Ud) 3 ml INH RQ4 PRN PRN Reason: Shortness of Breath Aspirin (Aspirin Chewable) 81 mg PO DAILY [facility] [place] Azithromycin (Zithromax) 500 mg PO DAILY [facility]; Protocol Finasteride (Proscar) 5 mg PO DAILY [facility] Furosemide (Lasix) 40 mg PO DAILY [facility] Heparin Sodium (Porcine) (Heparin) 5,000 units SC Q8 [facility] Last Admin: 07/18/18 13:56 Dose: 5,000 units Ceftriaxone Sodium 1 gm/ (Sodium Chloride) 100 mls @ 100 mls/hr IVPB DAILY [facility]; Protocol Influenza Virus Vaccine (Flucelvax Quad [id number] Syr) 60 mcg IM .ONCE ONE Stop: 07/20/18 10:01 Metoprolol Tartrate (Lopressor) 50 mg PO DAILY [facility] [place] Pneumococcal Polyvalent Vaccine (Pneumovax 23 Vaccine) 0.5 ml IM .ONCE ONE Stop: 07/20/18 10:01 Polyethylene Glycol (Miralax) 17 gm PO BID [facility] Polyethylene Glycol (Miralax) 17 gm PO DAILY [facility] [place] Potassium Chloride (K-Dur 20 Meq Er Tab) 20 meq PO BRK [facility] Rosuvastatin Calcium (Crestor) 5 mg PO HS [facility] Tamsulosin HCl (Flomax) 0.4 mg PO DAILY [facility] Zinc Sulfate (Zinc Sulfate 220 Mg Cap) 220 mg PO DAILY [facility] Physical Exam - Head Exam Head Exam: ATRAUMATIC - Eye Exam Eye Exam: Normal appearance - ENT Exam ENT Exam: Mucous Membranes Dry - Cardiovascular Exam Cardiovascular Exam: +S1, +S2 - GI/Abdominal Exam GI & Abdominal Exam: Normal Bowel Sounds - Extremities Exam Extremities exam: Positive for: normal inspection - Neurological Exam Neurological exam: Oriented x3 - Psychiatric Exam Psychiatric exam: Normal Affect, Normal Mood - Skin Skin Exam: Warm Results - Vital Signs Recent Vital Signs: Last Vital Signs Temp 98.7 F 07/18/18 15:17 Pulse 73 07/18/18 15:17 Resp 16 07/18/18 15:17 BP 115/71 07/18/18 15:17 Pulse Ox 95 07/18/18 15:17 - Labs Result Diagrams: 07/18/18 08:16 07/18/18 08:16 Labs: Laboratory Results - last 24 hr 07/18/18 07/18/18 07/18/18 08:16 08:16 08:16 WBC 8.5 RBC 4.98 Hgb 13.3 Hct 40.1 MCV 80.5 MCH 26.7 L MCHC 33.2 RDW 17.3 H Plt Count 287 MPV 6.9 L Neut % (Auto) 80.1 H Lymph % (Auto) 8.4 L [place] % (Auto) 8.8 Eos % (Auto) 2.3 Baso % (Auto) 0.4 Neut # (Auto) 6.8 Lymph # (Auto) 0.7 L [place] # (Auto) 0.7 Eos # (Auto) 0.2 Baso # (Auto) 0.0 Neutrophils % (Manual) 72 Band Neutrophils % 7 H Lymphocytes % (Manual) 9 L Monocytes % (Manual) 8 Eosinophils % (Manual) 4 Platelet Estimate Normal Anisocytosis (manual) Slight ESR PT INR APTT pO2 VBG pH VBG pCO2 VBG HCO3 VBG Total CO2 VBG O2 Sat (Calc) VBG Base Excess VBG Potassium Glucose Lactate Sodium 128 L Potassium 4.1 Chloride 96 L Carbon Dioxide 21 L Anion Gap 15 BUN 17 Creatinine 1.0 Est GFR ( Amer) > 60 Est GFR (Non-Af Amer) > 60 Random Glucose 151 H Hemoglobin A1c Calcium 9.3 Total Bilirubin 0.7 AST 67 H ALT 89 H Alkaline Phosphatase 214 H Lactate Dehydrogenase Troponin I < 0.0120 C-Reactive Protein NT-Pro-B Natriuret Pep 41.9 Total Protein 8.4 H Albumin 4.2 Globulin 4.2 H Albumin/Globulin Ratio 1.0 Lipase Carcinoembryonic Ag CA 19-9 Antigen Prostate Specific Ag Free T4 TSH 3rd Generation Venous Blood Potassium Urine Color Elvia Urine Clarity Turbid Urine pH 5.0 Ur Specific [place] 1.031 H Urine Protein 2+ H Urine Glucose (UA) Normal Urine Ketones Negative Urine Blood 1+ H Urine Nitrate Negative Urine Bilirubin Negative Urine Urobilinogen Normal Ur Leukocyte Esterase Neg Urine WBC (Auto) 4 Amorphous Sediment Few H Hepatitis A IgM Ab Hep Bs Antigen Hep B Core IgM Ab Hepatitis C Antibody Influenza Typ A,B (EIA) Ur L.pneumophila Ag 07/18/18 07/18/18 07/18/18 09:25 13:20 13:20 WBC RBC Hgb Hct MCV MCH MCHC RDW Plt Count MPV Neut % (Auto) Lymph % (Auto) [place] % (Auto) Eos % (Auto) Baso % (Auto) Neut # (Auto) Lymph # (Auto) [place] # (Auto) Eos # (Auto) Baso # (Auto) Neutrophils % (Manual) Band Neutrophils % Lymphocytes % (Manual) Monocytes % (Manual) Eosinophils % (Manual) Platelet Estimate Anisocytosis (manual) ESR PT INR APTT pO2 39 VBG pH 7.41 VBG pCO2 37 L VBG HCO3 23.7 VBG Total CO2 24.6 VBG O2 Sat (Calc) 67.7 H VBG Base Excess -0.8 L VBG Potassium 3.5 L Glucose 123 H Lactate 1.5 Sodium 131.0 L Potassium Chloride 99.0 Carbon Dioxide Anion Gap BUN Creatinine Est GFR ( Amer) Est GFR (Non-Af Amer) Random Glucose Hemoglobin A1c 5.7 Calcium Total Bilirubin AST ALT Alkaline Phosphatase Lactate Dehydrogenase Troponin I C-Reactive Protein NT-Pro-B Natriuret Pep Total Protein Albumin Globulin Albumin/Globulin Ratio Lipase Carcinoembryonic Ag 0.7 CA 19-9 Antigen 39.1 H Prostate Specific Ag Free T4 TSH 3rd Generation 1.65 Venous Blood Potassium 3.5 L Urine Color Urine Clarity Urine pH Ur Specific [place] Urine Protein Urine Glucose (UA) Urine Ketones Urine Blood Urine Nitrate Urine Bilirubin Urine Urobilinogen Ur Leukocyte Esterase Urine WBC (Auto) Amorphous Sediment Hepatitis A IgM Ab Hep Bs Antigen Hep B Core IgM Ab Hepatitis C Antibody Influenza Typ A,B (EIA) Ur L.pneumophila Ag 07/18/18 07/18/18 07/18/18 13:20 13:49 15:08 WBC RBC Hgb Hct MCV MCH MCHC RDW Plt Count MPV Neut % (Auto) Lymph % (Auto) [place] % (Auto) Eos % (Auto) Baso % (Auto) Neut # (Auto) Lymph # (Auto) [place] # (Auto) Eos # (Auto) Baso # (Auto) Neutrophils % (Manual) Band Neutrophils % Lymphocytes % (Manual) Monocytes % (Manual) Eosinophils % (Manual) Platelet Estimate Anisocytosis (manual) ESR PT 16.9 H INR 1.5 APTT 32 pO2 VBG pH VBG pCO2 VBG HCO3 VBG Total CO2 VBG O2 Sat (Calc) VBG Base Excess VBG Potassium Glucose Lactate Sodium Potassium Chloride Carbon Dioxide Anion Gap BUN Creatinine Est GFR ( Amer) Est GFR (Non-Af Amer) Random Glucose Hemoglobin A1c Calcium Total Bilirubin AST ALT Alkaline Phosphatase Lactate Dehydrogenase Troponin I C-Reactive Protein NT-Pro-B Natriuret Pep Total Protein Albumin Globulin Albumin/Globulin Ratio Lipase Carcinoembryonic Ag CA 19-9 Antigen Prostate Specific Ag Free T4 1.81 TSH 3rd Generation Venous Blood Potassium Urine Color Urine Clarity Urine pH Ur Specific [place] Urine Protein Urine Glucose (UA) Urine Ketones Urine Blood Urine Nitrate Urine Bilirubin Urine Urobilinogen Ur Leukocyte Esterase Urine WBC (Auto) Amorphous Sediment Hepatitis A IgM Ab Hep Bs Antigen Hep B Core IgM Ab Hepatitis C Antibody Influenza Typ A,B (EIA) Ur L.pneumophila Ag Negative 07/18/18 07/18/18 07/18/18 15:08 15:08 15:08 WBC RBC Hgb Hct MCV MCH MCHC RDW Plt Count MPV Neut % (Auto) Lymph % (Auto) [place] % (Auto) Eos % (Auto) Baso % (Auto) Neut # (Auto) Lymph # (Auto) [place] # (Auto) Eos # (Auto) Baso # (Auto) Neutrophils % (Manual) Band Neutrophils % Lymphocytes % (Manual) Monocytes % (Manual) Eosinophils % (Manual) Platelet Estimate Anisocytosis (manual) ESR 42 H PT INR APTT pO2 VBG pH VBG pCO2 VBG HCO3 VBG Total CO2 VBG O2 Sat (Calc) VBG Base Excess VBG Potassium Glucose Lactate Sodium Potassium Chloride Carbon Dioxide Anion Gap BUN Creatinine Est GFR ( Amer) Est GFR (Non-Af Amer) Random Glucose Hemoglobin A1c Calcium Total Bilirubin AST ALT Alkaline Phosphatase Lactate Dehydrogenase Troponin I C-Reactive Protein 25.70 H NT-Pro-B Natriuret Pep Total Protein Albumin Globulin Albumin/Globulin Ratio Lipase 126 Carcinoembryonic Ag CA 19-9 Antigen Prostate Specific Ag 3.67 Free T4 TSH 3rd Generation Venous Blood Potassium Urine Color Urine Clarity Urine pH Ur Specific [place] Urine Protein Urine Glucose (UA) Urine Ketones Urine Blood Urine Nitrate Urine Bilirubin Urine Urobilinogen Ur Leukocyte Esterase Urine WBC (Auto) Amorphous Sediment Hepatitis A IgM Ab Hep Bs Antigen Hep B Core IgM Ab Hepatitis C Antibody Influenza Typ A,B (EIA) Negative for flu a/b Ur L.pneumophila Ag 07/18/18 07/18/18 17:08 17:34 WBC RBC Hgb Hct MCV MCH MCHC RDW Plt Count MPV Neut % (Auto) Lymph % (Auto) [place] % (Auto) Eos % (Auto) Baso % (Auto) Neut # (Auto) Lymph # (Auto) [place] # (Auto) Eos # (Auto) Baso # (Auto) Neutrophils % (Manual) Band Neutrophils % Lymphocytes % (Manual) Monocytes % (Manual) Eosinophils % (Manual) Platelet Estimate Anisocytosis (manual) ESR PT INR APTT pO2 VBG pH VBG pCO2 VBG HCO3 VBG Total CO2 VBG O2 Sat (Calc) VBG Base Excess VBG Potassium Glucose Lactate Sodium Potassium Chloride Carbon Dioxide Anion Gap BUN Creatinine Est GFR ( Amer) Est GFR (Non-Af Amer) Random Glucose Hemoglobin A1c Calcium Total Bilirubin AST ALT Alkaline Phosphatase Lactate Dehydrogenase 478 Troponin I C-Reactive Protein NT-Pro-B Natriuret Pep Total Protein Albumin Globulin Albumin/Globulin Ratio Lipase Carcinoembryonic Ag CA 19-9 Antigen Prostate Specific Ag Free T4 TSH 3rd Generation Venous Blood Potassium Urine Color Urine Clarity Urine pH Ur Specific [place] Urine Protein Urine Glucose (UA) Urine Ketones Urine Blood Urine Nitrate Urine Bilirubin Urine Urobilinogen Ur Leukocyte Esterase Urine WBC (Auto) Amorphous Sediment Hepatitis A IgM Ab Negative Hep Bs Antigen Negative Hep B Core IgM Ab Negative Hepatitis C Antibody Negative Influenza Typ A,B (EIA) Ur L.pneumophila Ag Assessment & Plan (1) Multiple lesions of metastatic malignancy Assessment and Plan: rule out malignancy - lymphadenopathy, gastric abnormality, lung, splenic and omental lesions for EGD tomorrow if EGD negative for lesions, would recommend IR biopsy of most accessible lesion ? LN ?omentum, ?splenic lesion further treatment recommendations based on above Status: Acute (2) Anemia Assessment and Plan: retic count, b12, folate, ferritin, FOBT to further characterize Thank you for this interesting consult. Status: Acute
--- NOTE | 2018-07-19 07:07 | CP.PCM.PN ---
<Bandar Yo - Last Filed: 07/19/18 13:14> Subjective - Date & Time of Evaluation Date of Evaluation: 07/19/18 Time of Evaluation: 07:06 - Subjective Subjective: PGY-1 Medicine Progress Note for Dr. Mejia Patient seen and examined at bedside this AM, resting comfortably and in no acute distress. Patient is NPO for scheduled EGD later this afternoon. He endorses some nausea this AM, no other acute somatic complaints at this time. Denies any sob, productive cough, hemoptysis, chest pain, palpitations, abdominal pain, n/v/d/c. Objective - Vital Signs/Intake and Output Vital Signs (last 24 hours): Temp Pulse Resp BP Pulse Ox 98.8 F 86 20 101/58 L 95 07/19/18 00:55 07/19/18 00:55 07/19/18 00:55 07/19/18 00:55 07/19/18 04:31 Intake and Output: 07/19/18 07/19/18 06:59 18:59 Intake Total 0 Balance 0 - Medications Medications: Current Medications Albuterol/Ipratropium (Duoneb 3 Mg/0.5 Mg (3 Ml) Ud) 3 ml INH RQ4 PRN PRN Reason: Shortness of Breath Aspirin (Aspirin Chewable) 81 mg PO DAILY [facility] Azithromycin (Zithromax) 500 mg PO DAILY [facility]; Protocol Finasteride (Proscar) 5 mg PO DAILY [facility] Furosemide (Lasix) 40 mg PO DAILY [facility] Heparin Sodium (Porcine) (Heparin) 5,000 units SC Q8 [facility] Last Admin: 07/19/18 05:50 Dose: Not Given Ceftriaxone Sodium 1 gm/ (Sodium Chloride) 100 mls @ 100 mls/hr IVPB DAILY [facility]; Protocol Influenza Virus Vaccine (Flucelvax Quad [id number] Syr) 60 mcg IM .ONCE ONE Stop: 07/20/18 10:01 Metoprolol Tartrate (Lopressor) 50 mg PO DAILY [facility] Pneumococcal Polyvalent Vaccine (Pneumovax 23 Vaccine) 0.5 ml IM .ONCE ONE Stop: 07/20/18 10:01 Polyethylene Glycol (Miralax) 17 gm PO BID [facility] Last Admin: 07/18/18 21:43 Dose: 17 gm Polyethylene Glycol (Miralax) 17 gm PO DAILY [facility] Last Admin: 07/18/18 17:30 Dose: Not Given Potassium Chloride (K-Dur 20 Meq Er Tab) 20 meq PO BRK [facility] Rosuvastatin Calcium (Crestor) 5 mg PO HS [facility] Last Admin: 07/18/18 21:42 Dose: 5 mg Tamsulosin HCl (Flomax) 0.4 mg PO DAILY [facility] Zinc Sulfate (Zinc Sulfate 220 Mg Cap) 220 mg PO DAILY [facility] - Labs Labs: 07/18/18 08:16 07/18/18 08:16 PT 16.9 SECONDS (9.7-12.2) H 07/18/18 13:49 INR 1.5 07/18/18 13:49 APTT 32 SECONDS (21-34) 07/18/18 13:49 - Constitutional Appears: Non-toxic, No Acute Distress - Head Exam Head Exam: ATRAUMATIC, NORMAL INSPECTION, NORMOCEPHALIC - Eye Exam Eye Exam: EOMI, Normal appearance, PERRL. absent: Scleral icterus Pupil Exam: NORMAL ACCOMODATION - ENT Exam ENT Exam: Mucous Membranes Moist, Normal Exam - Neck Exam Neck Exam: Full ROM, Normal Inspection - Respiratory Exam Respiratory Exam: Rales, NORMAL BREATHING PATTERN. absent: Accessory Muscle Use, Rhonchi, Wheezes, Respiratory Distress, Stridor - Cardiovascular Exam Cardiovascular Exam: REGULAR RHYTHM, +S1, +S2 - GI/Abdominal Exam GI & Abdominal Exam: Soft, Normal Bowel Sounds. absent: Distended, Firm, Guarding, Rigid, Tenderness, Rebound - Extremities Exam Extremities Exam: Full ROM, Normal Capillary Refill, Normal Inspection. absent: Calf Tenderness, Pedal Edema - Back Exam Back Exam: NORMAL INSPECTION - Neurological Exam Neurological Exam: Alert, Awake, Normal Gait, Oriented x3 - Skin Skin Exam: Dry, Intact, Normal Color, Warm Assessment and Plan - Assessment and Plan (Free Text) Assessment: 62 year old male with PMHx of HTN, HLD, DM, asthma, BPH, recent PNA presenting to ED with generalized weakness, dry cough with associated sob x 4 months. Unintentional weight loss within the last 3 months, b/l pleural effusions noted on CT chest with multiple mets of unknown origin. Plan: Pleural effusions, bilaterally -f/u mycoplasma -f/u quantiferon -urine legionella negative -influenza negative -BCx, Urine Cx negative -CT chest report (06/06/18): prominent b/l pleural effusions, R>L, subsegmental atelectasis at b/l lung bases, focal calcified plaque invovling L coronary artery and thoracic aorta. Fatty changes of the liver. Heterogenous attenuation and enhancement of thyroid gland. -CTA of the chest w/ contrast report (06/06/18): no evidence of PE. . CXR on admission: asymmetric elevation of R hemidiaphragm, unknown chronicity CT chest on admission: Small to moderate R pleural effusion, trace L pleural effusion both with associated consolidations. Patchy infiltrate at R lung base may represent superimposed infection -lasix 40 mg PO daily -azithromycin 500 mg PO daily -rocephin 1 gm IV daily Unintentional weight loss Multiple lesions of metastatic malignancy -unintentional weight loss (~10 kg in last 3 months) -decreased appetite -CT chest/abdomen/pelvis: Numerous too small to characterize thyroid nodules. Cluster of nodules in RUL lung up to 6mm. Innumerable tiny splenic hypodensities. Hepatic steatosis. Questional presence of serosal implant anterior to L hepatic lobe. Evidence of omental mets. Stomach is nondistended but thick-walled and edematous. Small to moderate pelvic free fluid. Mediastinal/prevascular and mesenteric adenopathy. -Heme/Onc (Dr. Brown) recs appreciated -f/u EGD for lesions; if negative would recommend IR biopsy of most accessible lesion -GI recs (Dr. Medrano) appreciated -EGD report (07/19): Z line irregular, 38 cm from the incisors. Biopsied. LA Grade C esophagitis. Submucosal nodule found in esophagus. Gastritis, biopsied. Congested duodenal mucosa, biopsed. Multiple duodenal ulcers, biopsed. -Protonix 40 mg PO daily -f/u further recs Hx of asthma (?) -PFT report (06/13): Reduced FEV1 and FVC but FEV1/FVC ratio is increased. The MVV is reduced. The slow vital capacity is reduced. Following administration of bronchodilators, there is no significant response. The reduction in FVC suggests a restrictive process. -duonebs 3q4 prn Hx of BPH -CT abdomen/pelvis: Heterogenous enlarged prostate gland containing calcification -PSA wnl -tamsulosin 0.4 mg PO daily -finasteride 5 mg PO daily Impaired glucose tolerance -not on any home meds -A1C 5.6 Hx of HTN -Lopressor 50 mg PO daily -ASA 81 mg PO daily Hx of HLD -Crestor 10 mg PO HS PPx, Diet, Disposition -DVT ppx: scds, heparin 5000 units sc q8h -GI ppx: protonix 40 mg PO daily -Diet: HHD -PT on board Case discussed with Dr. Jackie Yo DO, PGY-1 <Polo Mejia - Last Filed: 07/22/18 14:39> Objective - Vital Signs/Intake and Output Vital Signs (last 24 hours): Temp Pulse Resp BP Pulse Ox 98.1 F 78 20 107/66 97 07/22/18 07:27 07/22/18 07:27 07/22/18 07:27 07/22/18 07:27 07/22/18 07:27 Intake and Output: 07/22/18 07/22/18 06:59 18:59 Intake Total 1000 Balance 1000 - Medications Medications: Current Medications Albuterol/Ipratropium (Duoneb 3 Mg/0.5 Mg (3 Ml) Ud) 3 ml INH RQ4 PRN PRN Reason: Shortness of Breath Last Admin: 07/21/18 12:45 Dose: 3 ml Aspirin (Aspirin Chewable) 81 mg PO DAILY [facility] Last Admin: 07/22/18 10:29 Dose: 81 mg Azithromycin (Zithromax) 500 mg PO DAILY [facility]; Protocol Last Admin: 07/22/18 09:29 Dose: 500 mg Finasteride (Proscar) 5 mg PO DAILY [facility] Last Admin: 07/22/18 09:30 Dose: 5 mg Furosemide (Lasix) 40 mg PO DAILY [facility] Last Admin: 07/22/18 09:45 Dose: Not Given Heparin Sodium (Porcine) (Heparin) 5,000 units SC Q8 [facility] Last Admin: 07/20/18 21:13 Dose: 5,000 units Ceftriaxone Sodium 1 gm/ (Sodium Chloride) 100 mls @ 100 mls/hr IVPB DAILY [facility]; Protocol Last Admin: 07/22/18 09:30 Dose: 100 mls/hr Metoprolol Tartrate (Lopressor) 50 mg PO DAILY [facility] Last Admin: 07/22/18 09:30 Dose: 50 mg Ondansetron HCl (Zofran Inj) 4 mg IVP Q6H PRN PRN Reason: Nausea/Vomiting Pantoprazole Sodium (Protonix Ec Tab) 40 mg PO DAILY [facility] Last Admin: 07/22/18 09:30 Dose: 40 mg Polyethylene Glycol (Miralax) 17 gm PO DAILY [facility] Last Admin: 07/22/18 09:44 Dose: Not Given Potassium Chloride (K-Dur 20 Meq Er Tab) 20 meq PO BRK [facility] Last Admin: 07/22/18 08:53 Dose: 20 meq Rosuvastatin Calcium (Crestor) 5 mg PO HS [facility] Last Admin: 07/21/18 21:48 Dose: 5 mg Tamsulosin HCl (Flomax) 0.4 mg PO DAILY [facility] Last Admin: 07/22/18 09:44 Dose: Not Given Zinc Sulfate (Zinc Sulfate 220 Mg Cap) 220 mg PO DAILY [facility] Last Admin: 07/22/18 09:30 Dose: 220 mg - Labs Labs: 07/22/18 07:26 07/22/18 07:26 PT 13.8 SECONDS (9.7-12.2) H 07/22/18 07:26 INR 1.3 07/22/18 07:26 APTT 31 SECONDS (21-34) 07/22/18 07:26 Attending/Attestation - Attestation I have personally seen and examined this patient.: Yes I have fully participated in the care of the patient.: Yes I have reviewed all pertinent clinical information, including history, physical exam and plan: Yes Notes (Text): Seen and examined.Patient state that he feels better .denies fever,no headache,no chest pain,no palpitation no fever,no leukocytosis,His LFT is going up,pleural fluid lymphocytes predominant. d/w DR Jimenez,follow AFB smear and cultures,r/o TB,continue airborn precaution,stop ceftriaxone and Zithromax,monitor LFT Patient is going for biopsy
[2018-07-19] MEDS: Potassium Chloride 20 mEq ER Tab PO SCH (07:33)
[2018-07-19 08:25] LABS: BASO % 0.4 % (0.0-2.0); EOS # 0.4 K/uL (0.0-0.7); EOS % 4.5 % (0.0-4.0); HEMOGLOBIN 12.8 g/dL (12.0-18.0); LYMPH # 1.1 K/uL (1.0-4.3); LYMPH % 12.8 % (20.0-40.0); MEAN CELL VOLUME 80.1 fL (80.0-94.0); MEAN CORPUSCULAR HEMOGLOBIN 26.9 pg (27.0-31.0); MEAN CORPUSCULAR HGB CONC 33.5 g/dL (33.0-37.0); MEAN PLATELET VOLUME 7.4 fL (7.2-11.7); MONO # 0.8 K/uL (0.0-0.8); MONO % 9.6 % (0.0-10.0); NEUT # 5.9 K/uL (1.8-7.0); NEUT % 72.7 % (50.0-75.0); NRBC % 0.1 % (0.0-2.0); RBC 4.75 Mil/uL (4.40-5.90); RED CELL DISTRIBUTION WIDTH 17.3 % (11.5-14.5); WHITE BLOOD COUNT 8.2 K/uL (4.8-10.8)
[2018-07-19 08:41] LABS: ALBUMIN 3.8 g/dL (3.5-5.0); ALT/SGPT 72 U/L (21-72); AST/SGOT 42 U/L (17-59); BLOOD UREA NITROGEN 13 mg/dL (9-20); CALCIUM 9.3 mg/dl (8.6-10.4); GFR NON-AFRICAN AMERICAN > 60
[2018-07-19] MEDS: POLYETHYLENE GLYCOL 3350 17 GM/Dose PACKET PO SCH ×3 (09:58→17:46)
[2018-07-19] MEDS ORDERED: Lactated Ringer's 500 ML IV SCH (10:30)
[2018-07-19 11:34] LABS: FOLATE 6.4 ng/mL
--- NOTE | 2018-07-19 11:40 | US ---
Date of service: 07/18/2018 HISTORY: evaluate portal system for thrombosis COMPARISON: Comparison is made with the previous CT dated 07/18/2018 TECHNIQUE: Sonographic evaluation of the abdomen. FINDINGS: LIVER: Measures 12.5 cm. Heterogeneous with increased echogenicity of the liver parenchyma. No mass. No intrahepatic bile duct dilatation. The portal vein is patent. There is no evidence of filling defect in the portal vein noted in this study to suggest portal thrombosis. GALLBLADDER: Unremarkable. No gallstones. COMMON BILE DUCT: Measures 4.3 mm. No stones. No dilatation. PANCREAS: Obscured by overlying bowel gas RIGHT KIDNEY: Measures 10.4 x 4.4 x 5.2cm. Normal echogenicity. No calculus, mass, or hydronephrosis. LEFT KIDNEY: Measures 11.1 x 5.3 x 4.5cm. Normal echogenicity. No calculus, mass, or hydronephrosis. SPLEEN: Heterogeneous spleen. The previously noted small foci of abnormal density in the spleen in the previous CT are not clearly seen in the current study. There is focal echogenic area noted at central portion of the spleen adjacent to the splenic hilum of uncertain etiology. The differential consideration includes but not limited hemangioma. AORTA: No aneurysmal dilatation. IVC: Unremarkable. OTHER FINDINGS: None. IMPRESSION: No evidence of portal vein thrombosis. Heterogeneous liver. Echogenic focus/foci in the central portion of the spleen of uncertain etiology. Preliminary report was submitted by [facility] Radiology.
[2018-07-19] MEDS ORDERED: Lactated Ringer's 500 ML IV ONE ×2 (11:55)
[2018-07-19] MEDS ORDERED: Propofol 10 mg/ml Inj (20 ML) ONE (11:58)
[2018-07-19] MEDS ORDERED: Albuterol 0.083% Inhal Sol (2.5 mg/3 mL) UD ONE (12:53)
[2018-07-19] MEDS ORDERED: Albuterol-Ipratrop 3 mg / 0.5 (3 ml) UD INH STA (13:00)
--- NOTE | 2018-07-19 18:34 | CARD ---
APPROVED REPORT Date of service: 07/18/2018 EKG Measurement Heart [id number] <Conclusion> Normal sinus rhythm Normal ECG
--- NOTE | 2018-07-19 22:21 | CP.PCM.PN ---
Subjective - Date & Time of Evaluation Date of Evaluation: 07/19/18 Time of Evaluation: 20:00 - Subjective Subjective: No complaints, s/p EGD Objective - Vital Signs/Intake and Output Vital Signs (last 24 hours): Temp Pulse Resp BP Pulse Ox 97.8 F 66 20 110/68 96 07/19/18 16:29 07/19/18 16:29 07/19/18 16:29 07/19/18 16:29 07/19/18 16:29 Intake and Output: 07/19/18 07/20/18 18:59 06:59 Intake Total 340 Balance 340 - Medications Medications: Current Medications Albuterol/Ipratropium (Duoneb 3 Mg/0.5 Mg (3 Ml) Ud) 3 ml INH RQ4 PRN PRN Reason: Shortness of Breath Aspirin (Aspirin Chewable) 81 mg PO DAILY [facility] Last Admin: 07/19/18 09:57 Dose: Not Given Azithromycin (Zithromax) 500 mg PO DAILY [facility]; Protocol Last Admin: 07/19/18 09:57 Dose: Not Given Finasteride (Proscar) 5 mg PO DAILY [facility] Last Admin: 07/19/18 09:57 Dose: Not Given Furosemide (Lasix) 40 mg PO DAILY [facility] Last Admin: 07/19/18 09:58 Dose: Not Given Heparin Sodium (Porcine) (Heparin) 5,000 units SC Q8 [facility] Last Admin: 07/19/18 21:12 Dose: 5,000 units Ceftriaxone Sodium 1 gm/ (Sodium Chloride) 100 mls @ 100 mls/hr IVPB DAILY [facility]; Protocol Last Admin: 07/19/18 09:57 Dose: 100 mls/hr Lactated Ringer's (Lactated Ringer's 500ml) 500 mls @ 75 mls/hr IV .Q6H40M [facility] Influenza Virus Vaccine (Flucelvax Quad 0128-0081 Syr) 60 mcg IM .ONCE ONE Stop: 07/20/18 10:01 Metoprolol Tartrate (Lopressor) 50 mg PO DAILY [facility] Last Admin: 07/19/18 09:56 Dose: 50 mg Ondansetron HCl (Zofran Inj) 4 mg IVP Q6H PRN PRN Reason: Nausea/Vomiting Pantoprazole Sodium (Protonix Ec Tab) 40 mg PO DAILY [facility] Pneumococcal Polyvalent Vaccine (Pneumovax 23 Vaccine) 0.5 ml IM .ONCE ONE Stop: 07/20/18 10:01 Polyethylene Glycol (Miralax) 17 gm PO BID [facility] Last Admin: 07/19/18 17:46 Dose: 17 gm Polyethylene Glycol (Miralax) 17 gm PO DAILY [facility] Last Admin: 07/19/18 09:58 Dose: Not Given Potassium Chloride (K-Dur 20 Meq Er Tab) 20 meq PO BRK [facility] Last Admin: 07/19/18 07:33 Dose: Not Given Rosuvastatin Calcium (Crestor) 5 mg PO HS [facility] Last Admin: 07/19/18 21:14 Dose: 5 mg Tamsulosin HCl (Flomax) 0.4 mg PO DAILY [facility] Last Admin: 07/19/18 09:57 Dose: Not Given Zinc Sulfate (Zinc Sulfate 220 Mg Cap) 220 mg PO DAILY [facility] Last Admin: 07/19/18 09:57 Dose: Not Given - Labs Labs: 07/19/18 08:10 07/19/18 08:10 PT 16.9 SECONDS (9.7-12.2) H 07/18/18 13:49 INR 1.5 07/18/18 13:49 APTT 32 SECONDS (21-34) 07/18/18 13:49 Assessment and Plan (1) Multiple lesions of metastatic malignancy Assessment & Plan: f/u EGD biopsies will discuss with IR if noted abnormalities can be biopsied Status: Acute (2) Anemia Assessment & Plan: anemia of chronic disease Status: Acute
--- NOTE | 2018-07-20 06:53 | CP.PCM.PN ---
<Bandar Yo - Last Filed: 07/20/18 12:46> Subjective - Date & Time of Evaluation Date of Evaluation: 07/20/18 Time of Evaluation: 06:53 - Subjective Subjective: PGY-1 Medicine Progress Note for Dr. Calderon Patient seen and examined at bedside this AM, s/p EGD. Denies any n/v/d, chest pain, palpitations, sob, abdominal pain. Continues to have dry intermittent cough, some generalized lower extremity weakness. No other acute somatic complaints. Awaiting IR recs on whether noted abnormalities are accessible enough for biopsy. Objective - Vital Signs/Intake and Output Vital Signs (last 24 hours): Temp Pulse Resp BP Pulse Ox 98.4 F 79 20 109/66 95 07/20/18 00:00 07/20/18 00:00 07/20/18 00:00 07/20/18 00:00 07/20/18 00:00 Intake and Output: 07/19/18 07/20/18 18:59 06:59 Intake Total 340 1000 Balance 340 1000 - Medications Medications: Current Medications Albuterol/Ipratropium (Duoneb 3 Mg/0.5 Mg (3 Ml) Ud) 3 ml INH RQ4 PRN PRN Reason: Shortness of Breath Aspirin (Aspirin Chewable) 81 mg PO DAILY [facility] Last Admin: 07/19/18 09:57 Dose: Not Given Azithromycin (Zithromax) 500 mg PO DAILY [facility]; Protocol Last Admin: 07/19/18 09:57 Dose: Not Given Finasteride (Proscar) 5 mg PO DAILY [facility] Last Admin: 07/19/18 09:57 Dose: Not Given Furosemide (Lasix) 40 mg PO DAILY [facility] Last Admin: 07/19/18 09:58 Dose: Not Given Heparin Sodium (Porcine) (Heparin) 5,000 units SC Q8 [facility] Last Admin: 07/20/18 05:14 Dose: 5,000 units Ceftriaxone Sodium 1 gm/ (Sodium Chloride) 100 mls @ 100 mls/hr IVPB DAILY [facility]; Protocol Last Admin: 07/19/18 09:57 Dose: 100 mls/hr Lactated Ringer's (Lactated Ringer's 500ml) 500 mls @ 75 mls/hr IV .Q6H40M [facility] Influenza Virus Vaccine (Flucelvax Quad 2761-2851 Syr) 60 mcg IM .ONCE ONE Stop: 07/20/18 10:01 Metoprolol Tartrate (Lopressor) 50 mg PO DAILY [facility] Last Admin: 07/19/18 09:56 Dose: 50 mg Ondansetron HCl (Zofran Inj) 4 mg IVP Q6H PRN PRN Reason: Nausea/Vomiting Pantoprazole Sodium (Protonix Ec Tab) 40 mg PO DAILY [facility] Pneumococcal Polyvalent Vaccine (Pneumovax 23 Vaccine) 0.5 ml IM .ONCE ONE Stop: 07/20/18 10:01 Polyethylene Glycol (Miralax) 17 gm PO BID [facility] Last Admin: 07/19/18 17:46 Dose: 17 gm Polyethylene Glycol (Miralax) 17 gm PO DAILY [facility] Last Admin: 07/19/18 09:58 Dose: Not Given Potassium Chloride (K-Dur 20 Meq Er Tab) 20 meq PO BRK [facility] Last Admin: 07/19/18 07:33 Dose: Not Given Rosuvastatin Calcium (Crestor) 5 mg PO HS [facility] Last Admin: 07/19/18 21:14 Dose: 5 mg Tamsulosin HCl (Flomax) 0.4 mg PO DAILY [facility] Last Admin: 07/19/18 09:57 Dose: Not Given Zinc Sulfate (Zinc Sulfate 220 Mg Cap) 220 mg PO DAILY [facility] Last Admin: 07/19/18 09:57 Dose: Not Given - Labs Labs: 07/19/18 08:10 07/19/18 08:10 PT 16.9 SECONDS (9.7-12.2) H 07/18/18 13:49 INR 1.5 07/18/18 13:49 APTT 32 SECONDS (21-34) 07/18/18 13:49 - Constitutional Appears: Non-toxic, No Acute Distress - Head Exam Head Exam: ATRAUMATIC, NORMAL INSPECTION, NORMOCEPHALIC - Eye Exam Eye Exam: EOMI, Normal appearance, PERRL. absent: Scleral icterus - ENT Exam ENT Exam: Mucous Membranes Moist, Normal Exam - Neck Exam Neck Exam: Full ROM, Normal Inspection - Respiratory Exam Respiratory Exam: Clear to Ausculation Bilateral, Rales, NORMAL BREATHING PATTERN. absent: Accessory Muscle Use, Rhonchi, Wheezes, Respiratory Distress, Stridor - Cardiovascular Exam Cardiovascular Exam: REGULAR RHYTHM, +S1, +S2 - GI/Abdominal Exam GI & Abdominal Exam: Soft, Normal Bowel Sounds. absent: Firm, Guarding, Rigid, Tenderness, Rebound - Extremities Exam Extremities Exam: Full ROM, Normal Capillary Refill, Normal Inspection - Back Exam Back Exam: NORMAL INSPECTION - Neurological Exam Neurological Exam: Alert, Awake, Oriented x3 - Skin Skin Exam: Dry, Intact, Normal Color, Warm Assessment and Plan - Assessment and Plan (Free Text) Assessment: 62 year old male with PMHx of HTN, HLD, DM, asthma, BPH, recent PNA presenting to ED with generalized weakness, dry cough with associated sob x 4 months. Unintentional weight loss within the last 3 months, b/l pleural effusions noted on CT chest with multiple mets of unknown origin. Plan: Pleural effusions, bilaterally -f/u mycoplasma -f/u quantiferon -urine legionella negative -influenza negative -Urine culture negative -Blood Culture: no growthx2 -CT chest report (06/06/18): prominent b/l pleural effusions, R>L, subsegmental atelectasis at b/l lung bases, focal calcified plaque invovling L coronary artery and thoracic aorta. Fatty changes of the liver. Heterogenous attenuation and enhancement of thyroid gland. -CTA of the chest w/ contrast report (06/06/18): no evidence of PE. -CXR on admission: asymmetric elevation of R hemidiaphragm, unknown chronicity -CT chest on admission: Small to moderate R pleural effusion, trace L pleural effusion both with associated consolidations. Patchy infiltrate at R lung base may represent superimposed infection -Abdominal u/s: no evidence of portal vein thrombosis. Heterogenous liver. Echogenic foci noted in central portion of spleen. -Pulmonology (Dr. Conner) consulted for possible drainage of R sided effusion -lasix 40 mg PO daily -azithromycin 500 mg PO daily -rocephin 1 gm IV daily Unintentional weight loss Multiple lesions of metastatic malignancy -unintentional weight loss (~10 kg in last 3 months) -decreased appetite -CT chest/abdomen/pelvis: Numerous too small to characterize thyroid nodules. Cluster of nodules in RUL lung up to 6mm. Innumerable tiny splenic hypodensities. Hepatic steatosis. Questional presence of serosal implant anterior to L hepatic lobe. Evidence of omental mets. Stomach is nondistended but thick-walled and edematous. Small to moderate pelvic free fluid. Mediastinal/prevascular and mesenteric adenopathy. -Heme/Onc (Dr. Brown) recs appreciated -f/u EGD for lesions; if negative would recommend IR biopsy of most accessible lesion -GI recs (Dr. Medrano) appreciated -EGD report (07/19): Z line irregular, 38 cm from the incisors. Biopsied. LA Grade C esophagitis. Submucosal nodule found in esophagus. Gastritis, biopsied. Congested duodenal mucosa, biopsed. Multiple duodenal ulcers, biopsed. -Protonix 40 mg PO daily -f/u further recs -IR (Dr. Uriarte) consulted for possible lymph node biopsy -awaiting further recommendations Hx of asthma (?) -PFT report (06/13): Reduced FEV1 and FVC but FEV1/FVC ratio is increased. The MVV is reduced. The slow vital capacity is reduced. Following administration of bronchodilators, there is no significant response. The reduction in FVC suggests a restrictive process. -duonebs 3q4 prn Hx of BPH -CT abdomen/pelvis: Heterogenous enlarged prostate gland containing calcification -PSA wnl -tamsulosin 0.4 mg PO daily -finasteride 5 mg PO daily Impaired glucose tolerance -not on any home meds -A1C 5.6 Hx of HTN -Lopressor 50 mg PO daily -ASA 81 mg PO daily Hx of HLD -Crestor 10 mg PO HS PPx, Diet, Disposition -DVT ppx: scds, heparin 5000 units sc q8h -GI ppx: protonix 40 mg PO daily -Diet: HHD -PT on board Case discussed with Dr. Kvng Yo DO, PGY-1 <Antoni Calderon - Last Filed: 07/20/18 15:20> Objective - Vital Signs/Intake and Output Vital Signs (last 24 hours): Temp Pulse Resp BP Pulse Ox 97.6 F 78 20 113/77 95 07/20/18 07:37 07/20/18 07:37 07/20/18 07:37 07/20/18 09:48 07/20/18 07:37 Intake and Output: 07/20/18 07/20/18 06:59 18:59 Intake Total 1000 Balance 1000 - Medications Medications: Current Medications Albuterol/Ipratropium (Duoneb 3 Mg/0.5 Mg (3 Ml) Ud) 3 ml INH RQ4 PRN PRN Reason: Shortness of Breath Aspirin (Aspirin Chewable) 81 mg PO DAILY [facility] Last Admin: 07/20/18 09:48 Dose: 81 mg Azithromycin (Zithromax) 500 mg PO DAILY [facility]; Protocol Last Admin: 07/20/18 09:50 Dose: 500 mg Finasteride (Proscar) 5 mg PO DAILY [facility] Last Admin: 07/20/18 09:48 Dose: 5 mg Furosemide (Lasix) 40 mg PO DAILY [facility] Last Admin: 07/20/18 09:48 Dose: 40 mg Heparin Sodium (Porcine) (Heparin) 5,000 units SC Q8 [facility] Last Admin: 07/20/18 14:52 Dose: 5,000 units Ceftriaxone Sodium 1 gm/ (Sodium Chloride) 100 mls @ 100 mls/hr IVPB DAILY [facility]; Protocol Last Admin: 07/20/18 09:50 Dose: 100 mls/hr Metoprolol Tartrate (Lopressor) 50 mg PO DAILY [facility] Last Admin: 07/20/18 09:48 Dose: 50 mg Ondansetron HCl (Zofran Inj) 4 mg IVP Q6H PRN PRN Reason: Nausea/Vomiting Pantoprazole Sodium (Protonix Ec Tab) 40 mg PO DAILY [facility] Last Admin: 07/20/18 09:48 Dose: 40 mg Polyethylene Glycol (Miralax) 17 gm PO DAILY [facility] Last Admin: 07/20/18 09:51 Dose: Not Given Potassium Chloride (K-Dur 20 Meq Er Tab) 20 meq PO BRK [facility] Last Admin: 07/20/18 07:56 Dose: 20 meq Rosuvastatin Calcium (Crestor) 5 mg PO HS [facility] Last Admin: 07/19/18 21:14 Dose: 5 mg Tamsulosin HCl (Flomax) 0.4 mg PO DAILY [facility] Last Admin: 07/20/18 09:48 Dose: 0.4 mg Zinc Sulfate (Zinc Sulfate 220 Mg Cap) 220 mg PO DAILY [facility] Last Admin: 07/20/18 09:48 Dose: 220 mg - Labs Labs: 07/20/18 06:41 07/20/18 06:41 PT 16.9 SECONDS (9.7-12.2) H 07/18/18 13:49 INR 1.5 07/18/18 13:49 APTT 32 SECONDS (21-34) 07/18/18 13:49 Attending/Attestation - Attestation I have personally seen and examined this patient.: Yes I have fully participated in the care of the patient.: Yes I have reviewed all pertinent clinical information, including history, physical exam and plan: Yes
[2018-07-20 06:54] LABS: BASO % 0.6 % (0.0-2.0); EOS # 0.5 K/uL (0.0-0.7); EOS % 7.4 % (0.0-4.0); HEMOGLOBIN 11.9 g/dL (12.0-18.0); LYMPH # 1.3 K/uL (1.0-4.3); LYMPH % 18.7 % (20.0-40.0); MEAN CELL VOLUME 79.7 fL (80.0-94.0); MEAN CORPUSCULAR HEMOGLOBIN 26.7 pg (27.0-31.0); MEAN CORPUSCULAR HGB CONC 33.5 g/dL (33.0-37.0); MEAN PLATELET VOLUME 7.3 fL (7.2-11.7); MONO # 0.8 K/uL (0.0-0.8); MONO % 12.3 % (0.0-10.0); NEUT # 4.1 K/uL (1.8-7.0); NRBC % 0.1 % (0.0-2.0); RBC 4.47 Mil/uL (4.40-5.90); RED CELL DISTRIBUTION WIDTH 16.8 % (11.5-14.5); WHITE BLOOD COUNT 6.8 K/uL (4.8-10.8)
[2018-07-20 07:31] LABS: ALB/GLOB RATIO 0.9 (1.0-2.1); ALBUMIN 3.2 g/dL (3.5-5.0); ALT/SGPT 53 U/L (21-72); AST/SGOT 51 U/L (17-59); BLOOD UREA NITROGEN 11 mg/dL (9-20); CALCIUM 8.8 mg/dl (8.6-10.4); GFR NON-AFRICAN AMERICAN > 60
[2018-07-20] MEDS: Potassium Chloride 20 mEq ER Tab PO SCH (07:56)
[2018-07-20] MEDS: Pantoprazole 40 mg EC Tab PO SCH (09:48)
[2018-07-20] MEDS: POLYETHYLENE GLYCOL 3350 17 GM/Dose PACKET PO SCH ×2 (09:50→09:51)
[2018-07-20] MEDS ORDERED: Pneumococcal 23-Valent Vaccine IM ONE (10:00)
[2018-07-20] MEDS ORDERED: Influenza Vaccine 60 mcg/0.5 mL SYR (4YR UP) IM ONE (10:00)
--- NOTE | 2018-07-20 10:26 | CP.PCM.PN ---
<JakeOtilia - Last Filed: 07/20/18 10:40> Subjective - Date & Time of Evaluation Date of Evaluation: 07/20/18 Time of Evaluation: 10:20 - Subjective Subjective: Gastroenterology Fellow/PGY6 Progress Note Patient feels well. Observed walking in hallway after breakfast. Tolerated diet without vomiting or abdominal pain. A 12-point review of systems negative except for as above. Objective - Vital Signs/Intake and Output Vital Signs (last 24 hours): Temp Pulse Resp BP Pulse Ox 97.6 F 78 20 113/77 95 07/20/18 07:37 07/20/18 07:37 07/20/18 07:37 07/20/18 09:48 07/20/18 07:37 Intake and Output: 07/20/18 07/20/18 06:59 18:59 Intake Total 1000 Balance 1000 - Medications Medications: Current Medications Albuterol/Ipratropium (Duoneb 3 Mg/0.5 Mg (3 Ml) Ud) 3 ml INH RQ4 PRN PRN Reason: Shortness of Breath Aspirin (Aspirin Chewable) 81 mg PO DAILY [facility] Last Admin: 07/20/18 09:48 Dose: 81 mg Azithromycin (Zithromax) 500 mg PO DAILY [facility]; Protocol Last Admin: 07/20/18 09:50 Dose: 500 mg Finasteride (Proscar) 5 mg PO DAILY [facility] Last Admin: 07/20/18 09:48 Dose: 5 mg Furosemide (Lasix) 40 mg PO DAILY [facility] Last Admin: 07/20/18 09:48 Dose: 40 mg Heparin Sodium (Porcine) (Heparin) 5,000 units SC Q8 [facility] Last Admin: 07/20/18 05:14 Dose: 5,000 units Ceftriaxone Sodium 1 gm/ (Sodium Chloride) 100 mls @ 100 mls/hr IVPB DAILY [facility]; Protocol Last Admin: 07/20/18 09:50 Dose: 100 mls/hr Lactated Ringer's (Lactated Ringer's 500ml) 500 mls @ 75 mls/hr IV .Q6H40M [facility] Metoprolol Tartrate (Lopressor) 50 mg PO DAILY [facility] Last Admin: 07/20/18 09:48 Dose: 50 mg Ondansetron HCl (Zofran Inj) 4 mg IVP Q6H PRN PRN Reason: Nausea/Vomiting Pantoprazole Sodium (Protonix Ec Tab) 40 mg PO DAILY [facility] Last Admin: 07/20/18 09:48 Dose: 40 mg Polyethylene Glycol (Miralax) 17 gm PO BID [facility] Last Admin: 07/20/18 09:50 Dose: 17 gm Polyethylene Glycol (Miralax) 17 gm PO DAILY [facility] Last Admin: 07/20/18 09:51 Dose: Not Given Potassium Chloride (K-Dur 20 Meq Er Tab) 20 meq PO BRK [facility] Last Admin: 07/20/18 07:56 Dose: 20 meq Rosuvastatin Calcium (Crestor) 5 mg PO HS [facility] Last Admin: 07/19/18 21:14 Dose: 5 mg Tamsulosin HCl (Flomax) 0.4 mg PO DAILY [facility] Last Admin: 07/20/18 09:48 Dose: 0.4 mg Zinc Sulfate (Zinc Sulfate 220 Mg Cap) 220 mg PO DAILY [facility] Last Admin: 07/20/18 09:48 Dose: 220 mg - Labs Labs: 07/20/18 06:41 07/20/18 06:41 PT 16.9 SECONDS (9.7-12.2) H 07/18/18 13:49 INR 1.5 07/18/18 13:49 APTT 32 SECONDS (21-34) 07/18/18 13:49 - Constitutional Appears: Non-toxic, No Acute Distress - Head Exam Head Exam: ATRAUMATIC, NORMOCEPHALIC - Eye Exam Eye Exam: EOMI, PERRL. absent: Scleral icterus Pupil Exam: PERRL. absent: Miosis, Mydriatic - ENT Exam ENT Exam: Mucous Membranes Moist, Normal Oropharynx - Neck Exam Neck Exam: Full ROM, Normal Inspection - Respiratory Exam Respiratory Exam: Clear to Ausculation Bilateral. absent: Rales, Rhonchi, Wheezes - Cardiovascular Exam Cardiovascular Exam: RRR, +S1, +S2. absent: Gallop, Rubs - GI/Abdominal Exam GI & Abdominal Exam: Soft, Normal Bowel Sounds. absent: Distended, Firm, Guarding, Rigid, Tenderness, Rebound - Extremities Exam Extremities Exam: Normal Inspection. absent: Pedal Edema - Neurological Exam Neurological Exam: Alert, Awake - Psychiatric Exam Psychiatric exam: Normal Affect, Normal Mood - Skin Skin Exam: Dry, Intact, Normal Color, Warm Assessment and Plan - Assessment and Plan (Free Text) Assessment: 62 year old male with PMH of CVA, Psoriasis (prior Humira for 3 months, stopped 3months), HTN, Diabetes, HLD, and constipation presenting with weakness. CT A/P IV contrast concerning for gastric thickening and lymphadenopathy in setting of recent Humira immunosuppression and risk of lymphoproliferative disorder. Prior colonoscopy 05/2015 showed 5mm transverse sessile tubular adenoma, Grade II internal hemorrhoids, and recommended five year surveillance. Plan: -POD1 (07/19) EGD showing esophageal submucosal mobile nodule at 30cm from incisors, gastritis, and extensive duodenal ulcerations of bulb/second portion -contacted Pathologist- awaiting preliminary read of EGD biopsies -Abdominal Ultrasound- patent portal vein, central splenic heterogenic foci, heterogenous hepatic parenchyma -Protonix 40mg before breakfast -LFTs improving, Hepatitis panel negative, LDH normal -CRP 25 -continue Miralax for bowel regimen -tolerating regular diet -Hem/Onc managing- follow up recommendations -IR consulted - follw up recommendations -further recommendations after EGD biopsy results <Sergey Medrano - Last Filed: 07/20/18 11:57> Objective - Vital Signs/Intake and Output Vital Signs (last 24 hours): Temp Pulse Resp BP Pulse Ox 97.6 F 78 20 113/77 95 07/20/18 07:37 07/20/18 07:37 07/20/18 07:37 07/20/18 09:48 07/20/18 07:37 Intake and Output: 07/20/18 07/20/18 06:59 18:59 Intake Total 1000 Balance 1000 - Medications Medications: Current Medications Albuterol/Ipratropium (Duoneb 3 Mg/0.5 Mg (3 Ml) Ud) 3 ml INH RQ4 PRN PRN Reason: Shortness of Breath Aspirin (Aspirin Chewable) 81 mg PO DAILY [facility] Last Admin: 07/20/18 09:48 Dose: 81 mg Azithromycin (Zithromax) 500 mg PO DAILY [facility]; Protocol Last Admin: 07/20/18 09:50 Dose: 500 mg Finasteride (Proscar) 5 mg PO DAILY [facility] Last Admin: 07/20/18 09:48 Dose: 5 mg Furosemide (Lasix) 40 mg PO DAILY [facility] Last Admin: 07/20/18 09:48 Dose: 40 mg Heparin Sodium (Porcine) (Heparin) 5,000 units SC Q8 [facility] Last Admin: 03/28/19 05:14 Dose: 5,000 units Ceftriaxone Sodium 1 gm/ (Sodium Chloride) 100 mls @ 100 mls/hr IVPB DAILY [facility]; Protocol Last Admin: 07/20/18 09:50 Dose: 100 mls/hr Metoprolol Tartrate (Lopressor) 50 mg PO DAILY [facility] Last Admin: 07/20/18 09:48 Dose: 50 mg Ondansetron HCl (Zofran Inj) 4 mg IVP Q6H PRN PRN Reason: Nausea/Vomiting Pantoprazole Sodium (Protonix Ec Tab) 40 mg PO DAILY [facility] Last Admin: 07/20/18 09:48 Dose: 40 mg Polyethylene Glycol (Miralax) 17 gm PO DAILY [facility] Last Admin: 07/20/18 09:51 Dose: Not Given Potassium Chloride (K-Dur 20 Meq Er Tab) 20 meq PO BRK [facility] Last Admin: 07/20/18 07:56 Dose: 20 meq Rosuvastatin Calcium (Crestor) 5 mg PO HS [facility] Last Admin: 07/19/18 21:14 Dose: 5 mg Tamsulosin HCl (Flomax) 0.4 mg PO DAILY [facility] Last Admin: 07/20/18 09:48 Dose: 0.4 mg Zinc Sulfate (Zinc Sulfate 220 Mg Cap) 220 mg PO DAILY [facility] Last Admin: 07/20/18 09:48 Dose: 220 mg - Labs Labs: 07/20/18 06:41 07/20/18 06:41 PT 16.9 SECONDS (9.7-12.2) H 07/18/18 13:49 INR 1.5 07/18/18 13:49 APTT 32 SECONDS (21-34) 07/18/18 13:49 Attending/Attestation - Attestation I have personally seen and examined this patient.: Yes I have fully participated in the care of the patient.: Yes I have reviewed all pertinent clinical information, including history, physical exam and plan: Yes Notes (Text): 07/20/18 11:54 I have seen and examined patient with GI fellow. He is seen ambulating in hallway, appears quite comfortable. He denies abdominal pain, nausea, vomiting, fever/chills. Endorses ongoing weakness. Tolerating PO diet without difficulty. Review of vitals from today are normal. CVA Psoriasis (prior use of Humira discontinued 3 months ago) DM/HTN Progressive weakness Abdominal lymphadenopathy - Diet as tolerated - Awaiting EGD biopsy results - IR consulted by medical team for consideration of lymph node biopsy, await recommendations - Follow up heme/onc recommendations - Patient clinially improved, if IR guided biopsy is not planned, can likely discharge patient home with subsequent outpatient follow up - Will continue to monitor patient clinical course
--- NOTE | 2018-07-21 00:52 | CP.PCM.PN ---
Subjective - Date & Time of Evaluation Date of Evaluation: 07/20/18 Time of Evaluation: 17:00 - Subjective Subjective: No complaints. Objective - Vital Signs/Intake and Output Vital Signs (last 24 hours): Temp Pulse Resp BP Pulse Ox 98.2 F 61 20 99/62 L 96 07/20/18 16:00 07/20/18 16:00 07/20/18 16:00 07/20/18 16:00 07/20/18 16:00 Intake and Output: 07/20/18 07/21/18 18:59 06:59 Intake Total 580 800 Balance 580 800 - Medications Medications: Current Medications Albuterol/Ipratropium (Duoneb 3 Mg/0.5 Mg (3 Ml) Ud) 3 ml INH RQ4 PRN PRN Reason: Shortness of Breath Aspirin (Aspirin Chewable) 81 mg PO DAILY [facility] Last Admin: 07/20/18 09:48 Dose: 81 mg Azithromycin (Zithromax) 500 mg PO DAILY [facility]; Protocol Last Admin: 07/20/18 09:50 Dose: 500 mg Finasteride (Proscar) 5 mg PO DAILY [facility] Last Admin: 07/20/18 09:48 Dose: 5 mg Furosemide (Lasix) 40 mg PO DAILY [facility] Last Admin: 07/20/18 09:48 Dose: 40 mg Heparin Sodium (Porcine) (Heparin) 5,000 units SC Q8 [facility] Last Admin: 07/20/18 21:13 Dose: 5,000 units Ceftriaxone Sodium 1 gm/ (Sodium Chloride) 100 mls @ 100 mls/hr IVPB DAILY [facility]; Protocol Last Admin: 07/20/18 09:50 Dose: 100 mls/hr Metoprolol Tartrate (Lopressor) 50 mg PO DAILY [facility] Last Admin: 07/20/18 09:48 Dose: 50 mg Ondansetron HCl (Zofran Inj) 4 mg IVP Q6H PRN PRN Reason: Nausea/Vomiting Pantoprazole Sodium (Protonix Ec Tab) 40 mg PO DAILY [facility] Last Admin: 07/20/18 09:48 Dose: 40 mg Polyethylene Glycol (Miralax) 17 gm PO DAILY [facility] Last Admin: 07/20/18 09:51 Dose: Not Given Potassium Chloride (K-Dur 20 Meq Er Tab) 20 meq PO BRK [facility] Last Admin: 07/20/18 07:56 Dose: 20 meq Rosuvastatin Calcium (Crestor) 5 mg PO [facility] Last Admin: 07/20/18 21:12 Dose: 5 mg Tamsulosin HCl (Flomax) 0.4 mg PO DAILY [facility] Last Admin: 07/20/18 09:48 Dose: 0.4 mg Zinc Sulfate (Zinc Sulfate 220 Mg Cap) 220 mg PO DAILY [facility] Last Admin: 07/20/18 09:48 Dose: 220 mg - Labs Labs: 07/20/18 06:41 07/20/18 06:41 PT 16.9 SECONDS (9.7-12.2) H 07/18/18 13:49 INR 1.5 07/18/18 13:49 APTT 32 SECONDS (21-34) 07/18/18 13:49 - Head Exam Head Exam: ATRAUMATIC - Eye Exam Eye Exam: Normal appearance - ENT Exam ENT Exam: Mucous Membranes Dry - Respiratory Exam Respiratory Exam: NORMAL BREATHING PATTERN - Cardiovascular Exam Cardiovascular Exam: +S1, +S2 - GI/Abdominal Exam GI & Abdominal Exam: Normal Bowel Sounds Assessment and Plan (1) Multiple lesions of metastatic malignancy Assessment & Plan: f/u EGD biopsies for thoracentesis; cytology evaluation Status: Acute (2) Anemia Assessment & Plan: anemia of chronic disease Status: Acute
[2018-07-21 06:54] LABS: BASO % 0.5 % (0.0-2.0); EOS # 0.8 K/uL (0.0-0.7); EOS % 12.8 % (0.0-4.0); HEMOGLOBIN 11.7 g/dL (12.0-18.0); LYMPH # 1.4 K/uL (1.0-4.3); LYMPH % 23.2 % (20.0-40.0); MEAN CELL VOLUME 79.7 fL (80.0-94.0); MEAN CORPUSCULAR HEMOGLOBIN 26.3 pg (27.0-31.0); MEAN PLATELET VOLUME 7.4 fL (7.2-11.7); MONO # 0.7 K/uL (0.0-0.8); MONO % 10.6 % (0.0-10.0); NEUT # 3.3 K/uL (1.8-7.0); NEUT % 52.9 % (50.0-75.0); NRBC % 0.1 % (0.0-2.0); RBC 4.45 Mil/uL (4.40-5.90); RED CELL DISTRIBUTION WIDTH 17.2 % (11.5-14.5); WHITE BLOOD COUNT 6.2 K/uL (4.8-10.8)
[2018-07-21 07:02] LABS: INR 1.4
--- NOTE | 2018-07-21 07:44 | CP.PCM.PN ---
<Otilia Joseph - Last Filed: 07/21/18 10:55> Subjective - Date & Time of Evaluation Date of Evaluation: 07/21/18 Time of Evaluation: 07:41 - Subjective Subjective: Gastroenterology Fellow/PGY6 Progress Note Patient feels well. Denies abdominal pain. Tolerated diet. No bowel movement yesterday. A 12-point review of systems negative except for as above. Objective - Vital Signs/Intake and Output Vital Signs (last 24 hours): Temp Pulse Resp BP Pulse Ox 98.9 F 66 20 100/59 L 94 L 07/21/18 00:00 07/21/18 00:00 07/21/18 00:00 07/21/18 00:00 07/21/18 00:00 Intake and Output: 07/21/18 07/21/18 06:59 18:59 Intake Total 800 Balance 800 - Medications Medications: Current Medications Albuterol/Ipratropium (Duoneb 3 Mg/0.5 Mg (3 Ml) Ud) 3 ml INH RQ4 PRN PRN Reason: Shortness of Breath Aspirin (Aspirin Chewable) 81 mg PO DAILY [facility] Last Admin: 07/20/18 09:48 Dose: 81 mg Azithromycin (Zithromax) 500 mg PO DAILY [facility]; Protocol Last Admin: 07/20/18 09:50 Dose: 500 mg Finasteride (Proscar) 5 mg PO DAILY [facility] Last Admin: 07/20/18 09:48 Dose: 5 mg Furosemide (Lasix) 40 mg PO DAILY [facility] Last Admin: 07/20/18 09:48 Dose: 40 mg Heparin Sodium (Porcine) (Heparin) 5,000 units SC Q8 [facility] Last Admin: 07/20/18 21:13 Dose: 5,000 units Ceftriaxone Sodium 1 gm/ (Sodium Chloride) 100 mls @ 100 mls/hr IVPB DAILY [facility]; Protocol Last Admin: 07/20/18 09:50 Dose: 100 mls/hr Metoprolol Tartrate (Lopressor) 50 mg PO DAILY [facility] Last Admin: 07/20/18 09:48 Dose: 50 mg Ondansetron HCl (Zofran Inj) 4 mg IVP Q6H PRN PRN Reason: Nausea/Vomiting Pantoprazole Sodium (Protonix Ec Tab) 40 mg PO DAILY [facility] Last Admin: 07/20/18 09:48 Dose: 40 mg Polyethylene Glycol (Miralax) 17 gm PO DAILY [facility] Last Admin: 07/20/18 09:51 Dose: Not Given Potassium Chloride (K-Dur 20 Meq Er Tab) 20 meq PO BRK [facility] Last Admin: 07/20/18 07:56 Dose: 20 meq Rosuvastatin Calcium (Crestor) 5 mg PO HS [facility] Last Admin: 07/20/18 21:12 Dose: 5 mg Tamsulosin HCl (Flomax) 0.4 mg PO DAILY [facility] Last Admin: 07/20/18 09:48 Dose: 0.4 mg Zinc Sulfate (Zinc Sulfate 220 Mg Cap) 220 mg PO DAILY [facility] Last Admin: 07/20/18 09:48 Dose: 220 mg - Labs Labs: 07/21/18 06:42 07/20/18 06:41 PT 15.0 SECONDS (9.7-12.2) H 07/21/18 06:42 INR 1.4 07/21/18 06:42 APTT 32 SECONDS (21-34) 07/18/18 13:49 - Constitutional Appears: Non-toxic, No Acute Distress - Head Exam Head Exam: ATRAUMATIC, NORMOCEPHALIC - Eye Exam Eye Exam: EOMI, PERRL. absent: Scleral icterus Pupil Exam: PERRL. absent: Miosis, Mydriatic - ENT Exam ENT Exam: Mucous Membranes Moist, Normal Oropharynx - Neck Exam Neck Exam: Full ROM, Normal Inspection - Respiratory Exam Respiratory Exam: Clear to Ausculation Bilateral. absent: Rales, Rhonchi, Wheezes - Cardiovascular Exam Cardiovascular Exam: RRR, +S1, +S2. absent: Gallop, Rubs - GI/Abdominal Exam GI & Abdominal Exam: Soft, Normal Bowel Sounds. absent: Distended, Firm, Guarding, Rigid, Tenderness, Organomegaly, Rebound - Neurological Exam Neurological Exam: Alert, Awake - Psychiatric Exam Psychiatric exam: Normal Affect, Normal Mood - Skin Skin Exam: Dry, Intact, Normal Color, Warm Assessment and Plan - Assessment and Plan (Free Text) Assessment: 62 year old male with PMH of CVA, Psoriasis (prior Humira for 3 months, stopped 3months), HTN, Diabetes, HLD, and constipation presenting with weakness. CT A/P IV contrast concerning for gastric thickening and lymphadenopathy in setting of recent Humira immunosuppression and risk of lymphoproliferative disorder. Prior colonoscopy 05/2015 showed 5mm transverse sessile tubular adenoma, Grade II internal hemorrhoids, and recommended five year surveillance. Plan: -(07/19) EGD- no signs of lymphoproliferative disorder, or viral inclusions, CMV/HSV stains pending, esophageal submucosal lesion (likely a leiomyoma) at 30cm from incisors, severe ulcerative esophagitis H. pylori negative gastritis, severe ulcerative, duodenitis -attending discussion with IR and advanced endoscopist-not amenable to IR or EUS biopsy -POD 0(07/21) thoracentesis- follow up cytology -recommend surgical evaluation -Protonix 40mg before breakfast -Hepatitis panel negative, LDH normal -CRP 25 -continue Miralax for bowel regimen -tolerating regular diet -Hem/Onc managing- follow up recommendations -will follow clinical course <Sergey Medrano - Last Filed: 07/21/18 11:28> Objective - Vital Signs/Intake and Output Vital Signs (last 24 hours): Temp Pulse Resp BP Pulse Ox 97.9 F 73 20 98/62 L 98 07/21/18 08:01 07/21/18 09:54 07/21/18 09:54 07/21/18 09:54 07/21/18 09:54 Intake and Output: 07/21/18 07/21/18 06:59 18:59 Intake Total 800 Balance 800 - Medications Medications: Current Medications Albuterol/Ipratropium (Duoneb 3 Mg/0.5 Mg (3 Ml) Ud) 3 ml INH RQ4 PRN PRN Reason: Shortness of Breath Aspirin (Aspirin Chewable) 81 mg PO DAILY [facility] Last Admin: 07/21/18 10:12 Dose: 81 mg Azithromycin (Zithromax) 500 mg PO DAILY [facility]; Protocol Last Admin: 07/21/18 10:11 Dose: 500 mg Finasteride (Proscar) 5 mg PO DAILY [facility] Last Admin: 07/21/18 10:12 Dose: 5 mg Furosemide (Lasix) 40 mg PO DAILY [facility] Last Admin: 07/21/18 10:11 Dose: Not Given Heparin Sodium (Porcine) (Heparin) 5,000 units SC Q8 [facility] Last Admin: 07/20/18 21:13 Dose: 5,000 units Ceftriaxone Sodium 1 gm/ (Sodium Chloride) 100 mls @ 100 mls/hr IVPB DAILY [facility]; Protocol Last Admin: 07/21/18 10:16 Dose: 100 mls/hr Metoprolol Tartrate (Lopressor) 50 mg PO DAILY [facility] Last Admin: 07/21/18 10:11 Dose: Not Given Ondansetron HCl (Zofran Inj) 4 mg IVP Q6H PRN PRN Reason: Nausea/Vomiting Pantoprazole Sodium (Protonix Ec Tab) 40 mg PO DAILY [facility] Last Admin: 07/21/18 10:12 Dose: 40 mg Polyethylene Glycol (Miralax) 17 gm PO DAILY [facility] Last Admin: 07/21/18 10:13 Dose: 17 gm Potassium Chloride (K-Dur 20 Meq Er Tab) 20 meq PO BRK [facility] Last Admin: 07/21/18 08:16 Dose: Not Given Rosuvastatin Calcium (Crestor) 5 mg PO HS [facility] Last Admin: 07/20/18 21:12 Dose: 5 mg Tamsulosin HCl (Flomax) 0.4 mg PO DAILY [facility] Last Admin: 07/21/18 10:11 Dose: 0.4 mg Zinc Sulfate (Zinc Sulfate 220 Mg Cap) 220 mg PO DAILY [facility] Last Admin: 07/21/18 10:12 Dose: 220 mg - Labs Labs: 07/21/18 06:42 07/21/18 06:42 PT 15.0 SECONDS (9.7-12.2) H 07/21/18 06:42 INR 1.4 07/21/18 06:42 APTT 32 SECONDS (21-34) 07/18/18 13:49 Attending/Attestation - Attestation I have personally seen and examined this patient.: Yes I have fully participated in the care of the patient.: Yes I have reviewed all pertinent clinical information, including history, physical exam and plan: Yes Notes (Text): 07/21/18 11:25 I have seen and examined patient with GI fellow. No acute events overnight, he is seen resting in bed comfortably. He denies abdominal pain, nausea, vomiting, diarrhea, fever/chills. Tolerating PO diet without difficulty. CVA Psoriasis (on prior humira) HTN/DM Hyperlipidemia Abdominal adenopathy, splenic lesions s/p EGD showing diffuse ulceration in duodenum, distal esophagus, 1 cm SM lesion in proximal esophagus Pleural effusion s/p thoracentesis - Diet as tolerated - Continue with PPI therapy - Await cytology and fluid studies from thoracentesis - Follow up oncology recommendations - Case discussed with IR at length, no obvious omental lesion amenable to biopsy. Can consider surgical evaluation for additional opinion if desired. - No further planned GI intervention at this time, will sign off case. Patient will benefit from additional outpatient evaluation and elective follow up of esophageal SM lesion. Please reconsult as necessary, thank you.
[2018-07-21 07:45] LABS: IRON 49 ug/dL (49-181)
[2018-07-21 07:56] LABS: ALB/GLOB RATIO 0.9 (1.0-2.1); ALBUMIN 3.1 g/dL (3.5-5.0); ALT/SGPT 89 U/L (21-72); AST/SGOT 91 U/L (17-59); BLOOD UREA NITROGEN 12 mg/dL (9-20); GFR NON-AFRICAN AMERICAN > 60
[2018-07-21 08:02] LABS: % IRON SATURATION 23 (20-55); TOTAL IRON BINDING CAPACITY 210 ug/dL (250-450)
--- NOTE | 2018-07-21 08:08 | CP.PCM.PN ---
<Leatha Faye - Last Filed: 07/21/18 15:25> Subjective - Date & Time of Evaluation Date of Evaluation: 07/21/18 Time of Evaluation: 08:08 - Subjective Subjective: PGY-1 Leatha Faye D.O. Medicine progress note for Dr. Calderon's service: Patient was seen and examined this morning. He is feeling a little dizzy after t horacentesis. He continues to have cough. Denies shortness of breath. He is still having some constipation. Denies nausea, vomiting, diarrhea, blood in stool. Objective - Vital Signs/Intake and Output Vital Signs (last 24 hours): Temp Pulse Resp BP Pulse Ox 97.9 F 60 20 104/68 95 07/21/18 08:01 07/21/18 08:01 07/21/18 08:01 07/21/18 08:01 07/21/18 08:01 Intake and Output: 07/21/18 07/21/18 06:59 18:59 Intake Total 800 Balance 800 - Medications Medications: Current Medications Albuterol/Ipratropium (Duoneb 3 Mg/0.5 Mg (3 Ml) Ud) 3 ml INH RQ4 PRN PRN Reason: Shortness of Breath Aspirin (Aspirin Chewable) 81 mg PO DAILY [facility] Last Admin: 07/20/18 09:48 Dose: 81 mg Azithromycin (Zithromax) 500 mg PO DAILY [facility]; Protocol Last Admin: 07/20/18 09:50 Dose: 500 mg Finasteride (Proscar) 5 mg PO DAILY [facility] Last Admin: 07/20/18 09:48 Dose: 5 mg Furosemide (Lasix) 40 mg PO DAILY [facility] Last Admin: 07/20/18 09:48 Dose: 40 mg Heparin Sodium (Porcine) (Heparin) 5,000 units SC Q8 [facility] Last Admin: 07/20/18 21:13 Dose: 5,000 units Ceftriaxone Sodium 1 gm/ (Sodium Chloride) 100 mls @ 100 mls/hr IVPB DAILY [facility]; Protocol Last Admin: 07/20/18 09:50 Dose: 100 mls/hr Metoprolol Tartrate (Lopressor) 50 mg PO DAILY [facility] Last Admin: 07/20/18 09:48 Dose: 50 mg Ondansetron HCl (Zofran Inj) 4 mg IVP Q6H PRN PRN Reason: Nausea/Vomiting Pantoprazole Sodium (Protonix Ec Tab) 40 mg PO DAILY [facility] Last Admin: 07/20/18 09:48 Dose: 40 mg Polyethylene Glycol (Miralax) 17 gm PO DAILY [facility] Last Admin: 07/20/18 09:51 Dose: Not Given Potassium Chloride (K-Dur 20 Meq Er Tab) 20 meq PO BRK [facility] Last Admin: 07/20/18 07:56 Dose: 20 meq Rosuvastatin Calcium (Crestor) 5 mg PO HS [facility] Last Admin: 07/20/18 21:12 Dose: 5 mg Tamsulosin HCl (Flomax) 0.4 mg PO DAILY [facility] Last Admin: 07/20/18 09:48 Dose: 0.4 mg Zinc Sulfate (Zinc Sulfate 220 Mg Cap) 220 mg PO DAILY [facility] Last Admin: 07/20/18 09:48 Dose: 220 mg - Labs Labs: 07/21/18 06:42 07/21/18 06:42 PT 15.0 SECONDS (9.7-12.2) H 07/21/18 06:42 INR 1.4 07/21/18 06:42 APTT 32 SECONDS (21-34) 07/18/18 13:49 - Additional Findings Additional findings: - Constitutional Appears: Non-toxic, No Acute Distress - Head Exam Head Exam: ATRAUMATIC, NORMAL INSPECTION, NORMOCEPHALIC - Eye Exam Eye Exam: EOMI, Normal appearance, PERRL. absent: Scleral icterus - ENT Exam ENT Exam: Mucous Membranes Moist, Normal Exam - Neck Exam Neck Exam: Full ROM, Normal Inspection - Respiratory Exam Respiratory Exam: Clear to Auscultation Bilateral, NORMAL BREATHING PATTERN. absent: Accessory Muscle Use, Rhonchi, Wheezes, Respiratory Distress, Stridor Clean dry bandage at site of thoracentesis (Right back) - Cardiovascular Exam Cardiovascular Exam: REGULAR RHYTHM, +S1, +S2 - GI/Abdominal Exam GI & Abdominal Exam: Soft, Normal Bowel Sounds. absent: Firm, Guarding, Rigid, Tenderness, Rebound - Extremities Exam Extremities Exam: Full ROM, Normal Capillary Refill, Normal Inspection - Back Exam Back Exam: NORMAL INSPECTION - Neurological Exam Neurological Exam: Alert, Awake, Oriented x3 - Skin Skin Exam: Dry, Intact, Normal Color, Warm Assessment and Plan - Assessment and Plan (Free Text) Assessment: 62 year old male with PMHx of HTN, HLD, T2DM, asthma, BPH, recent PNA presenting to ED with generalized weakness, dry cough with associated sob x 4 months. Unintentional weight loss within the last 3 months, b/l pleural effusions noted on CT chest with multiple mets of unknown origin. R-sided thoracentesis done 07/21. Plan for laparoscopy to biopsy LNs. Quantiferon gold positive- patient placed on isolation pending 3 AFB sputums. Plan: Pleural effusions, R>L - Urine legionella negative - Influenza negative - HIV negative - Hepatitis panel negative - ESR 42-->32 - CRP 25.7 - BNP 41.9 - Urine Cx no growth - Blood Culture: no growth >3 days - PFT report (06/13): Reduced FEV1 and FVC but FEV1/FVC ratio is increased. The MVV is reduced. The slow vital capacity is reduced. Following administration of bronchodilators, there is no significant response. The reduction in FVC suggests a restrictive process. -duonebs 3q4 prn - CT chest (06/06/18): prominent b/l pleural effusions, R>L, subsegmental at electasis at b/l lung bases, focal calcified plaque invovling L coronary artery and thoracic aorta. Fatty changes of the liver. Heterogenous attenuation and enhancement of thyroid gland. - CTA chest (06/06/18): no evidence of PE. - CXR on admission: asymmetric elevation of R hemidiaphragm, unknown chronicity - CT chest on admission: Small to moderate R pleural effusion, trace L pleural effusion both with associated consolidations. Patchy infiltrate at R lung base may represent superimposed infection - Abdominal US: no evidence of portal vein thrombosis. Heterogenous liver. Echogenic foci noted in central portion of spleen. - Thoracentesis on 07/21- 950 cc - f/u fluid studies - Lasix 40 mg PO daily - KCl 20 mEq PO daily - Azithromycin 500 mg PO daily- started 07/19 - Rocephin 1 gm IV daily- started 07/19 - Duoneb Q4H PRN - Pulmonology consulted (Denita) - IR consulted (Chapito)- thoracentesis 07/21 Multiple lesions of metastatic malignancy - Unintentional weight loss (~10 kg in last 3 months) -CT chest/abdomen/pelvis: Numerous too small to characterize thyroid nodules. Cluster of nodules in RUL lung up to 6mm. Innumerable tiny splenic hypodensities. Hepatic steatosis. Questional presence of serosal implant anterior to L hepatic lobe. Evidence of omental mets. Stomach is nondistended but thick-walled and edematous. Small to moderate pelvic free fluid. Medi astinal/prevascular and mesenteric adenopathy. -EGD report (07/19): Z line irregular, 38 cm from the incisors. Biopsied. LA Grade C esophagitis. Submucosal nodule found in esophagus. Gastritis, biopsied. Congested duodenal mucosa, biopsed. Multiple duodenal ulcers, biopsed. - Biopsies: severe ulcerative esophagitis, mild chronic gastritis, mod-severe duodenitis - Heme/Onc consulted (Kevin) - GI consulted (Mitchell)- colonoscopy as outpatient - IR consulted (Chapito)- thoracentesis 07/21 - Surgery consulted (Andres)- laparoscopy tomorrow 07/22 Tuberculosis - From [place], weight loss, cough, recent Humira injections - Quantiferon gold positive - Airborne isolation - AFB sputum pending x3 - ID consulted (Barbara) Anemia - Hgb normal on admission--> 11.7 - FOBT negative - Iron low/normal 49, TIBC low (210), %sat wnl, ferritin wnl - B12, folate wnl Transaminitis, acute, mild - Hepatitis panel negative - Avoid hepatotoxic agents - GI consulted (Mitchell) Constipation, acute - Miralax 17 gm PO daily Benign prostatic hypertrophy, chronic - CT abdomen/pelvis: Heterogenous enlarged prostate gland containing calcification - PSA wnl - Tamsulosin 0.4 mg PO daily - Finasteride 5 mg PO daily Hypertension, chronic - Vitals Q6H - Lopressor 50 mg PO daily - ASA 81 mg PO daily Hyperlipidemia, chronic - Crestor 5 mg PO QHS Ppx: VTE: SCDs, Heparin 5000 units SC Q8H GI: Protonix 40 mg PO daily Diet: Heart healthy Case discussed with attending, Dr. Calderon. <Antoni Calderon - Last Filed: 07/21/18 17:36> Objective - Vital Signs/Intake and Output Vital Signs (last 24 hours): Temp Pulse Resp BP Pulse Ox 97.9 F 92 H 20 116/79 94 L 07/21/18 16:00 07/21/18 16:00 07/21/18 16:00 07/21/18 16:00 07/21/18 16:00 Intake and Output: 07/21/18 07/21/18 06:59 18:59 Intake Total 800 580 Balance 800 580 - Medications Medications: Current Medications Albuterol/Ipratropium (Duoneb 3 Mg/0.5 Mg (3 Ml) Ud) 3 ml INH RQ4 PRN PRN Reason: Shortness of Breath Last Admin: 07/21/18 12:45 Dose: 3 ml Aspirin (Aspirin Chewable) 81 mg PO DAILY [facility] Last Admin: 07/21/18 10:12 Dose: 81 mg Azithromycin (Zithromax) 500 mg PO DAILY [facility]; Protocol Last Admin: 07/21/18 10:11 Dose: 500 mg Finasteride (Proscar) 5 mg PO DAILY [facility] Last Admin: 07/21/18 10:12 Dose: 5 mg Furosemide (Lasix) 40 mg PO DAILY [facility] Last Admin: 07/21/18 10:11 Dose: Not Given Heparin Sodium (Porcine) (Heparin) 5,000 units SC Q8 [facility] Last Admin: 07/20/18 21:13 Dose: 5,000 units Ceftriaxone Sodium 1 gm/ (Sodium Chloride) 100 mls @ 100 mls/hr IVPB DAILY [facility]; Protocol Last Admin: 07/21/18 10:16 Dose: 100 mls/hr Metoprolol Tartrate (Lopressor) 50 mg PO DAILY [facility] Last Admin: 07/21/18 10:11 Dose: Not Given Ondansetron HCl (Zofran Inj) 4 mg IVP Q6H PRN PRN Reason: Nausea/Vomiting Pantoprazole Sodium (Protonix Ec Tab) 40 mg PO DAILY [facility] Last Admin: 07/21/18 10:12 Dose: 40 mg Polyethylene Glycol (Miralax) 17 gm PO DAILY [facility] Last Admin: 07/21/18 10:13 Dose: 17 gm Potassium Chloride (K-Dur 20 Meq Er Tab) 20 meq PO BRK [facility] Last Admin: 07/21/18 08:16 Dose: Not Given Rosuvastatin Calcium (Crestor) 5 mg PO HS [facility] Last Admin: 07/20/18 21:12 Dose: 5 mg Tamsulosin HCl (Flomax) 0.4 mg PO DAILY [facility] Last Admin: 07/21/18 10:11 Dose: 0.4 mg Zinc Sulfate (Zinc Sulfate 220 Mg Cap) 220 mg PO DAILY [facility] Last Admin: 07/21/18 10:12 Dose: 220 mg - Labs Labs: 07/21/18 06:42 07/21/18 06:42 PT 15.0 SECONDS (9.7-12.2) H 07/21/18 06:42 INR 1.4 07/21/18 06:42 APTT 32 SECONDS (21-34) 07/18/18 13:49 Attending/Attestation - Attestation I have personally seen and examined this patient.: Yes I have fully participated in the care of the patient.: Yes I have reviewed all pertinent clinical information, including history, physical exam and plan: Yes Notes (Text): Patient seen and examined with the residents, agree with above. s/p thoracentesis today with >900 fluid removal - extremely important to follow up on fluid analysis including cell counts, cytology, culture and AFB. Case discussed with GI and Surgery. Agree with laparoscopic tissue biopsy tomorrow. Etiology at this point could include lymphoma vs Tb as patient having Quantiferon (+). Placed in isolation, f/u on sputum for AFB x3. Case discussed with Dr Jimenez.
[2018-07-21] MEDS: Potassium Chloride 20 mEq ER Tab PO SCH (08:16)
--- NOTE | 2018-07-21 09:34 | PCM.SURG1 ---
Surgeon's Initial Post Op Note - Surgeon's Notes Surgeon: Michael Uriarte MD [employer] Load[employer] Superintendent: None Pre-Operative Diagnosis: Right pleural effusion Operative Findings: US showed moderate right pleural effusion Post-Operative Diagnosis: Right pleural effusion Operation Performed: US guided right thoracentesis Specimen/Specimens Removed: 950 cc of zoe colored fluid Estimated Blood Loss: EBL {In ML}: 0 Blood Products Given: N/A Drains Used: No Drains Post-Op Condition: Fair Date of Surgery/Procedure: 07/21/18 Time of Surgery/Procedure: 09:30
[2018-07-21] MEDS: Pantoprazole 40 mg EC Tab PO SCH (10:12)
[2018-07-21] MEDS: POLYETHYLENE GLYCOL 3350 17 GM/Dose PACKET PO SCH (10:13)
--- NOTE | 2018-07-21 11:50 | US ---
PROCEDURE: Date of procedure: 07/21/2018 Procedure: 1. Ultrasound-guided Right thoracentesis, CPT 49858 Medications: 5cc 1% Lidocaine HISTORY: Right pleural effusion, shortness of breath TECHNIQUE: Following informed consent ,the Patients' right chest was marked. Procedure time-out was called, and the patient was placed in the sitting position and limited ultrasound showed a large right effusion. The patient's right back was prepped and draped in the usual sterile fashion. After the skin was anesthetized with lidocaine, a drainage catheter was advanced under ultrasound guidance into the pleural space. Ultrasound-guided thoracentesis was performed. A total of 950 cubic centimeters of zoe-colored fluid removed without complication. A Xeroform dressing was applied. IMPRESSION: Ultrasound guided Right thoracentesis. There were no immediate complications.
--- NOTE | 2018-07-21 15:31 | CP.PCM.CON ---
<Francy Rashid - Last Filed: 07/21/18 16:31> History of Present Illness - History of Present Illness History of Present Illness: Consult Note for Dr. Ward HPI: Patient is a 62 year old male with history of HTN, HLD, psoriasis, BPH who initially presented for weakness for the past 4 months associated with intermittent shortness of breath and dry nonproductive cough. He was seen by pulmonology who ordered CT chest which was positive for pleural effusions bilaterally. He was treated with Lasix and antibiotics at that time. He states he came in because of worsening weakness and notable unintentional weight loss of 20 lbs over the last 3 months. He states that he has been a little more constipated over the past few weeks, last BM was yesterday. He denies night sweats, fevers, chills, headache, dizziness, chest pain, palpitations, abdominal pain, nausea, vomiting, diarrhea, dysuria. Patient had a colonoscopy in May 2015 with polypectomy; path report revealed tubular adenoma. Patient had thoracentesis for right pleural effusion - 950cc zoe fluid. CT revealed diffus e mediastinal lymph nodes, omental metastases, abnormal thick-walled edematous stomach. PMH: psoriasis, HTN, HLD, BPH PSH: none Social hx: History of smoking, quit years ago. Originally from [place]. 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 Home meds: Atorvastatin 10mg, Metoprolol 50mg, Finasteride 5mg, Tamsulosin 0.4mg, ASA 81mg, Lasix, K Dur, Vit D, Zinc sulfate Allergies: NKDA Review of Systems - Constitutional Constitutional: Weight Loss. absent: Chills, Fever, Headache, Night Sweats - EENT Eyes: absent: Change in Vision Ears: absent: Ear Pain Nose/Mouth/Throat: absent: Sore Throat - Cardiovascular Cardiovascular: Dyspnea. absent: Chest Pain - Respiratory Respiratory: Cough, Dyspnea - Gastrointestinal Gastrointestinal: absent: Abdominal Pain, Nausea, Vomiting - Genitourinary Genitourinary: absent: Dysuria, Urinary Frequency - Musculoskeletal Musculoskeletal: absent: Back Pain Past Patient History - Infectious Disease Hx of Infectious Diseases: None - Past Medical History & Family History Past Medical History?: Yes - Past Social History Smoking Status: Never Smoked - CARDIAC Hx Hypertension: Yes - PULMONARY Hx Pneumonia: Yes - NEUROLOGICAL HX Cerebrovascular Accident: Yes - ENDOCRINE/METABOLIC Hx Diabetes Mellitus Type 2: Yes - HEMATOLOGICAL/ONCOLOGICAL Hx Blood Transfusions: No Hx Blood Transfusion Reaction: No - MUSCULOSKELETAL/RHEUMATOLOGICAL Hx Falls: No - PSYCHIATRIC Hx Substance Use: No - SURGICAL HISTORY Hx Surgeries: No - ANESTHESIA Hx Anesthesia: No Hx Anesthesia Reactions: No Hx Malignant Hyperthermia: No Meds Allergies/Adverse Reactions: Allergies Allergy/AdvReac Type Severity Reaction Status Date / Time No Known Allergies Allergy Verified 07/18/18 07:28 - Medications Medications: Current Medications Albuterol/Ipratropium (Duoneb 3 Mg/0.5 Mg (3 Ml) Ud) 3 ml INH RQ4 PRN PRN Reason: Shortness of Breath Aspirin (Aspirin Chewable) 81 mg PO DAILY [facility] Last Admin: 07/21/18 10:12 Dose: 81 mg Azithromycin (Zithromax) 500 mg PO DAILY [facility]; Protocol Last Admin: 07/21/18 10:11 Dose: 500 mg Finasteride (Proscar) 5 mg PO DAILY [facility] Last Admin: 07/21/18 10:12 Dose: 5 mg Furosemide (Lasix) 40 mg PO DAILY [facility] Last Admin: 07/21/18 10:11 Dose: Not Given Heparin Sodium (Porcine) (Heparin) 5,000 units SC Q8 [facility] Last Admin: 07/20/18 21:13 Dose: 5,000 units Ceftriaxone Sodium 1 gm/ (Sodium Chloride) 100 mls @ 100 mls/hr IVPB DAILY [facility]; Protocol Last Admin: 07/21/18 10:16 Dose: 100 mls/hr Metoprolol Tartrate (Lopressor) 50 mg PO DAILY [facility] Last Admin: 07/21/18 10:11 Dose: Not Given Ondansetron HCl (Zofran Inj) 4 mg IVP Q6H PRN PRN Reason: Nausea/Vomiting Pantoprazole Sodium (Protonix Ec Tab) 40 mg PO DAILY [facility] Last Admin: 07/21/18 10:12 Dose: 40 mg Polyethylene Glycol (Miralax) 17 gm PO DAILY [facility] Last Admin: 07/21/18 10:13 Dose: 17 gm Potassium Chloride (K-Dur 20 Meq Er Tab) 20 meq PO BRK [facility] Last Admin: 07/21/18 08:16 Dose: Not Given Rosuvastatin Calcium (Crestor) 5 mg PO HS [facility] Last Admin: 03/28/19 21:12 Dose: 5 mg Tamsulosin HCl (Flomax) 0.4 mg PO DAILY [facility] Last Admin: 07/21/18 10:11 Dose: 0.4 mg Zinc Sulfate (Zinc Sulfate 220 Mg Cap) 220 mg PO DAILY [facility] Last Admin: 07/21/18 10:12 Dose: 220 mg Physical Exam - Constitutional Appears: Well, No Acute Distress - Head Exam Head Exam: ATRAUMATIC, NORMOCEPHALIC - Eye Exam Eye Exam: EOMI, PERRL - ENT Exam ENT Exam: Mucous Membranes Moist - Respiratory Exam Respiratory Exam: NORMAL BREATHING PATTERN - Cardiovascular Exam Cardiovascular Exam: REGULAR RHYTHM, +S1, +S2 - GI/Abdominal Exam GI & Abdominal Exam: Normal Bowel Sounds, Soft - Extremities Exam Extremities exam: Positive for: pedal pulses present. Negative for: calf tenderness, pedal edema - Neurological Exam Neurological exam: Alert, Oriented x3 Results - Vital Signs Recent Vital Signs: Last Vital Signs Temp 97.9 F 07/21/18 08:01 Pulse 73 07/21/18 09:54 Resp 20 07/21/18 09:54 BP 98/62 L 07/21/18 09:54 Pulse Ox 98 07/21/18 09:54 - Labs Result Diagrams: 07/21/18 06:42 07/21/18 06:42 Labs: Laboratory Results - last 24 hr 07/18/18 07/20/18 07/20/18 15:08 17:03 20:53 WBC RBC Hgb Hct MCV MCH MCHC RDW Plt Count MPV Neut % (Auto) Lymph % (Auto) [place] % (Auto) Eos % (Auto) Baso % (Auto) Neut # (Auto) Lymph # (Auto) [place] # (Auto) Eos # (Auto) Baso # (Auto) ESR PT INR Sodium Potassium Chloride Carbon Dioxide Anion Gap BUN Creatinine Est GFR ( Amer) Est GFR (Non-Af Amer) Random Glucose Calcium Phosphorus Magnesium Iron TIBC % Saturation Transferrin Ferritin Total Bilirubin AST ALT Alkaline Phosphatase Total Protein Albumin Globulin Albumin/Globulin Ratio Vitamin B12 Folate Stool Occult Blood Negative HIV 1&2 Antibody Screen Negative TB Test (QFT) Nil 0.03 TB Test Mitogen - Nil 8.12 TB Test Antigen - Nil 6.36 TB Test TB - Nil 5.21 TB Test (QFT) Positive H 07/21/18 07/21/18 07/21/18 06:42 06:42 06:42 WBC 6.2 RBC 4.45 Hgb 11.7 L Hct 35.4 MCV 79.7 L MCH 26.3 L MCHC 33.0 RDW 17.2 H Plt Count 266 MPV 7.4 Neut % (Auto) 52.9 Lymph % (Auto) 23.2 [place] % (Auto) 10.6 H Eos % (Auto) 12.8 H Baso % (Auto) 0.5 Neut # (Auto) 3.3 Lymph # (Auto) 1.4 [place] # (Auto) 0.7 Eos # (Auto) 0.8 H Baso # (Auto) 0.0 ESR PT INR Sodium 137 Potassium 3.8 Chloride 105 Carbon Dioxide 24 Anion Gap 11 BUN 12 Creatinine 1.0 Est GFR ( Amer) > 60 Est GFR (Non-Af Amer) > 60 Random Glucose 89 Calcium 9.0 Phosphorus 3.9 Magnesium 2.2 Iron 49 TIBC 210 L % Saturation 23 Transferrin Ferritin Total Bilirubin 0.2 AST 91 H D ALT 89 H D Alkaline Phosphatase 137 H Total Protein 6.7 Albumin 3.1 L Globulin 3.6 Albumin/Globulin Ratio 0.9 L Vitamin B12 Folate Stool Occult Blood HIV 1&2 Antibody Screen TB Test (QFT) Nil TB Test Mitogen - Nil TB Test Antigen - Nil TB Test TB - Nil TB Test (QFT) 07/21/18 07/21/18 07/21/18 06:42 06:42 06:42 WBC RBC Hgb Hct MCV MCH MCHC RDW Plt Count MPV Neut % (Auto) Lymph % (Auto) [place] % (Auto) Eos % (Auto) Baso % (Auto) Neut # (Auto) Lymph # (Auto) [place] # (Auto) Eos # (Auto) Baso # (Auto) ESR PT 15.0 H INR 1.4 Sodium Potassium Chloride Carbon Dioxide Anion Gap BUN Creatinine Est GFR ( Amer) Est GFR (Non-Af Amer) Random Glucose Calcium Phosphorus Magnesium Iron TIBC % Saturation Transferrin 126.20 L Ferritin 169.0 Total Bilirubin AST ALT Alkaline Phosphatase Total Protein Albumin Globulin Albumin/Globulin Ratio Vitamin B12 427 Folate 7.0 Stool Occult Blood HIV 1&2 Antibody Screen TB Test (QFT) Nil TB Test Mitogen - Nil TB Test Antigen - Nil TB Test TB - Nil TB Test (QFT) 07/21/18 11:33 WBC RBC Hgb Hct MCV MCH MCHC RDW Plt Count MPV Neut % (Auto) Lymph % (Auto) [place] % (Auto) Eos % (Auto) Baso % (Auto) Neut # (Auto) Lymph # (Auto) [place] # (Auto) Eos # (Auto) Baso # (Auto) ESR 32 H PT INR Sodium Potassium Chloride Carbon Dioxide Anion Gap BUN Creatinine Est GFR ( Amer) Est GFR (Non-Af Amer) Random Glucose Calcium Phosphorus Magnesium Iron TIBC % Saturation Transferrin Ferritin Total Bilirubin AST ALT Alkaline Phosphatase Total Protein Albumin Globulin Albumin/Globulin Ratio Vitamin B12 Folate Stool Occult Blood HIV 1&2 Antibody Screen TB Test (QFT) Nil TB Test Mitogen - Nil TB Test Antigen - Nil TB Test TB - Nil TB Test (QFT) Assessment & Plan - Assessment and Plan (Free Text) Assessment: 62 year old male admitted for cough, shortness of breath, weakness and weight loss. Quantiferon Gold +, awaiting AFB sputum. Status post right thoracentesis 950cc output. CT showed diffuse lymphadenopathy, omental metastases. Surgery consulted for biopsy. Plan: Plan for OR tomorrow for laparoscopy and diagnostic biopsy NPO after midnight Francy Rashid, PGY1 <Daniel Ward N - Last Filed: 07/23/18 14:31> Meds - Medications Medications: Current Medications Albuterol/Ipratropium (Duoneb 3 Mg/0.5 Mg (3 Ml) Ud) 3 ml INH RQ4 PRN PRN Reason: Shortness of Breath Last Admin: 07/21/18 12:45 Dose: 3 ml Aspirin (Aspirin Chewable) 81 mg PO DAILY [facility] Last Admin: 07/23/18 09:58 Dose: Not Given Finasteride (Proscar) 5 mg PO DAILY [facility] Last Admin: 07/23/18 09:59 Dose: Not Given Heparin Sodium (Porcine) (Heparin) 5,000 units SC Q8 [facility] Last Admin: 07/23/18 14:17 Dose: 5,000 units Metoprolol Tartrate (Lopressor) 50 mg PO DAILY [facility] Last Admin: 07/23/18 09:32 Dose: 50 mg Ondansetron HCl (Zofran Inj) 4 mg IVP Q6H PRN PRN Reason: Nausea/Vomiting Pantoprazole Sodium (Protonix Ec Tab) 40 mg PO DAILY [facility] Last Admin: 07/23/18 09:31 Dose: 40 mg Polyethylene Glycol (Miralax) 17 gm PO DAILY PRN PRN Reason: Constipation Rosuvastatin Calcium (Crestor) 5 mg PO HS [facility] Last Admin: 07/22/18 21:45 Dose: 5 mg Tamsulosin HCl (Flomax) 0.4 mg PO DAILY [facility] Last Admin: 07/23/18 09:59 Dose: Not Given Zinc Sulfate (Zinc Sulfate 220 Mg Cap) 220 mg PO DAILY [facility] Last Admin: 07/23/18 09:32 Dose: 220 mg Results - Vital Signs Recent Vital Signs: Last Vital Signs Temp 98.9 F 07/23/18 09:45 Pulse 80 07/23/18 09:45 Resp 18 07/23/18 09:45 BP 117/74 07/23/18 09:45 Pulse Ox 96 07/23/18 09:45 - Labs Result Diagrams: 07/23/18 08:15 07/23/18 08:15 Labs: Laboratory Results - last 24 hr 07/23/18 07/23/18 08:15 08:15 WBC 6.2 RBC 4.35 L Hgb 11.7 L Hct 35.4 MCV 81.4 MCH 26.8 L MCHC 33.0 RDW 17.5 H Plt Count 294 MPV 7.4 Neut % (Auto) 54.9 Lymph % (Auto) 18.2 L [place] % (Auto) 9.8 Eos % (Auto) 16.2 H Baso % (Auto) 0.9 Neut # (Auto) 3.4 Lymph # (Auto) 1.1 [place] # (Auto) 0.6 Eos # (Auto) 1.0 H Baso # (Auto) 0.1 Sodium 136 Potassium 3.9 Chloride 103 Carbon Dioxide 25 Anion Gap 11 BUN 14 Creatinine 1.1 Est GFR ( Amer) > 60 Est GFR (Non-Af Amer) > 60 Random Glucose 80 Calcium 9.1 Phosphorus 3.8 Magnesium 2.1 Total Bilirubin 0.4 AST 95 H D ALT 103 H Alkaline Phosphatase 114 Total Protein 6.9 Albumin 3.3 L Globulin 3.6 Albumin/Globulin Ratio 0.9 L Assessment & Plan - Assessment and Plan (Free Text) Plan: All medical record entries made by the resident were at my direction and personally directed by me. I have reviewed the chart and agree that the record accurately reflects my personal performance of the history, physical exam, medical decision making,
[2018-07-21 17:03] LABS: BODY FLUID TYPE PLEURAL/THORACENTESI
[2018-07-21 18:32] LABS: BF GROSS APPEARANCE BLOODY (CLEAR)
[2018-07-21 18:33] LABS: BODY FLUID MONO/MACROPHAGE 1 % (0-0); BODY FLUID TOTAL COUNT 100 (0-0)
--- NOTE | 2018-07-21 20:05 | CP.PCM.CON ---
History of Present Illness - History of Present Illness History of Present Illness: 62 year old male with a history of HTN, CVA, psoriasis on Humaia, presenting with progressive weakness, found to have radiographic concern for malignancy. The patient notes to starting Humara about 6 months ago for worsening psoriasis. He began to feel weak with this treatment and discontinued it. He notes to progressive cough and shortness of breath. He has lost 20-30 pounds over the course of [address] C/A/P revealed irregularity involving the stomach with lung lesions, splenic lesions, omental disease, and lymphadenopathy. TB to be ruled out- on isolation await smears/ cultures Past medical history: HTN, CVA, psoriasis Past surgical history: Denies Family history: Denies hematologic and oncologic problems Social history: Denies tobacco, alcohol, and illicit drug use. Allergies: NKA Review of Systems - Review of Systems All systems: reviewed and no additional remarkable complaints except - Constitutional Constitutional: As Per HPI, Fever, Malaise - EENT Eyes: absent: As Per HPI, Blind Spots, Blurred Vision, Change in Vision, Decreased Night Vision, Diplopia, Discharge, Dry Eye, Exophthalmos, Floaters, Irritation, Itchy Eyes, Loss of Peripheral Vision, Pain, Photophobia, Requires Corrective Lenses, Sees Flashes, Spots in Vision, Tunnel Vision, Other Visual Disturbances, Loss of Vision, Other Ears: absent: As Per HPI, Decreased Hearing, Ear Discharge, Ear Pain, Tinnitus, Abnormal Hearing, Disequilibrium, Dizziness, Other Nose/Mouth/Throat: absent: As Per HPI, Epistaxis, Nasal Congestion, Nasal Discharge, Nasal Obstruction, Nasal Trauma, Nose Pain, Post Nasal Drip, Sinus Pain, Sinus Pressure, Bleeding Gums, Change in Voice, Dental Pain, Dry Mouth, Dysphagia, Halitosis, Hoarsness, Lip Swelling, Mouth Lesions, Mouth Pain, Odynophagia, Sore Throat, Throat Swelling, Tongue Swelling, Facial Pain, Neck Pain, Neck Mass, Other - Cardiovascular Cardiovascular: As Per HPI - Respiratory Respiratory: As Per HPI, Cough - Gastrointestinal Gastrointestinal: absent: As Per HPI, Abdominal Pain, Belching, Bloating, Change in Bowel Habits, Change in Stool Character, Coffee Ground Emesis, Constipation, Cramping, Diarrhea, Dyspepsia, Dysphagia, Early Satiety, Excessive Flatus, Fecal Incontinence, Heartburn, Hematemesis, Hematochezia, Loose Stools, Melena, Nausea, Odynophagia, Temesmus, Vomiting, Other - Genitourinary Genitourinary: absent: As Per HPI, Change in Urinary Stream, Difficulty Urinating, Dysuria, Flank Pain, Hematuria, Pyuria, Nocturia, Urinary Incontinence, Urinary Frequency, Urinary Hesitance, Urinary Urgency, Voiding F req/Small Amts, Freq UTI, Hx Renal/Bladder Calculi, Hx /Renal Surgery, Bladder Distension, Other - Musculoskeletal Musculoskeletal: absent: As Per HPI, Abnormal Gait, Arthralgias, Atrophy, Back Pain, Deformity, Joint Swelling, Limited Range of Motion, Loss of Height, Muscle Cramps, Muscle Weakness, Myalgias, Neck Pain, Numbness, Radiating Pain into Limb, Stiffness, Tingling, Other - Integumentary Integumentary: absent: As Per HPI, Acne, Alopecia, Bleeding Lesions, Change in Hair, Change in Nails, Change in Pigmentation, Changing Lesions, Dry Skin, Erythema, Furuncle, Hirsutism, Lesions, New Lesions, Non-Healing Lesions, Photosensitivity, Pruritus, Rash, Skin Pain, Skin Ulcer, Sores, Striae, Swelling, Unusual Bruising, Wounds, Jaundice, Other - Neurological Neurological: absent: As Per HPI, Abnormal Gait, Abnormal Hearing, Abnormal Movements, Abnormal Speech, Behavioral Changes, Burning Sensations, Confusion, Convulsions, Disequilibrium, Dizziness, Numbness, Focal Weakness, Frequent Falls, Headaches, Lack of Coordination, Loss of Vision, Memory Loss, Paresthesias, Radicular Pain, Restless Legs, Sensory Deficit, Syncope, Tingling, Tremor, Vertigo, Weakness, Other Visual Disturbances, Other - Psychiatric Psychiatric: absent: As Per HPI, Abnormal Sleep Pattern, Anhedonia, Anxiety, Auditory Hallucinations, Behavioral Changes, Change in Appetite, Change in Libido, Confusion, Depression, Difficulty Concentrating, Hallucinations, Homicidal Ideation, Hopelessness, Irritability, Memory Loss, Mood Swings, Panic Attacks, Paranoia, Suicidal Ideation, Visual Hallucinations, Tactile Hallucinations, Other - Endocrine Endocrine: absent: As Per HPI, Change in Body Appearance, Change in Libido, Cold Intolorance, Deepening of Voice, Excessive Sweating, Fatigue, Flushing, Heat Intolorance, Increase in Ring/Shoe/Hat Size, Palpitations, Polydipsia, Polyphagia, Polyuria, Other - Hematologic/Lymphatic Hematologic: As Per HPI Past Patient History - Infectious Disease Hx of Infectious Diseases: None - Past Medical History & Family History Past Medical History?: Yes - Past Social History Smoking Status: Never Smoked - CARDIAC Hx Hypertension: Yes - PULMONARY Hx Pneumonia: Yes - NEUROLOGICAL HX Cerebrovascular Accident: Yes - ENDOCRINE/METABOLIC Hx Diabetes Mellitus Type 2: Yes - HEMATOLOGICAL/ONCOLOGICAL Hx Blood Transfusions: No Hx Blood Transfusion Reaction: No - MUSCULOSKELETAL/RHEUMATOLOGICAL Hx Falls: No - PSYCHIATRIC Hx Substance Use: No - SURGICAL HISTORY Hx Surgeries: No - ANESTHESIA Hx Anesthesia: No Hx Anesthesia Reactions: No Hx Malignant Hyperthermia: No Meds Allergies/Adverse Reactions: Allergies Allergy/AdvReac Type Severity Reaction Status Date / Time No Known Allergies Allergy Verified 07/18/18 07:28 - Medications Medications: Current Medications Albuterol/Ipratropium (Duoneb 3 Mg/0.5 Mg (3 Ml) Ud) 3 ml INH RQ4 PRN PRN Reason: Shortness of Breath Last Admin: 07/21/18 12:45 Dose: 3 ml Aspirin (Aspirin Chewable) 81 mg PO DAILY [facility] Last Admin: 07/21/18 10:12 Dose: 81 mg Azithromycin (Zithromax) 500 mg PO DAILY [facility]; Protocol Last Admin: 07/21/18 10:11 Dose: 500 mg Finasteride (Proscar) 5 mg PO DAILY [facility] Last Admin: 07/21/18 10:12 Dose: 5 mg Furosemide (Lasix) 40 mg PO DAILY [facility] Last Admin: 07/21/18 10:11 Dose: Not Given Heparin Sodium (Porcine) (Heparin) 5,000 units SC Q8 [facility] Last Admin: 07/20/18 21:13 Dose: 5,000 units Ceftriaxone Sodium 1 gm/ (Sodium Chloride) 100 mls @ 100 mls/hr IVPB DAILY [facility]; Protocol Last Admin: 07/21/18 10:16 Dose: 100 mls/hr Metoprolol Tartrate (Lopressor) 50 mg PO DAILY [facility] Last Admin: 07/21/18 10:11 Dose: Not Given Ondansetron HCl (Zofran Inj) 4 mg IVP Q6H PRN PRN Reason: Nausea/Vomiting Pantoprazole Sodium (Protonix Ec Tab) 40 mg PO DAILY [facility] Last Admin: 07/21/18 10:12 Dose: 40 mg Polyethylene Glycol (Miralax) 17 gm PO DAILY [facility] Last Admin: 07/21/18 10:13 Dose: 17 gm Potassium Chloride (K-Dur 20 Meq Er Tab) 20 meq PO BRK [facility] Last Admin: 07/21/18 08:16 Dose: Not Given Rosuvastatin Calcium (Crestor) 5 mg PO HS [facility] Last Admin: 07/20/18 21:12 Dose: 5 mg Tamsulosin HCl (Flomax) 0.4 mg PO DAILY [facility] Last Admin: 07/21/18 10:11 Dose: 0.4 mg Zinc Sulfate (Zinc Sulfate 220 Mg Cap) 220 mg PO DAILY [facility] Last Admin: 07/21/18 10:12 Dose: 220 mg Physical Exam - Constitutional Appears: No Acute Distress, Chronically Ill - Head Exam Head Exam: ATRAUMATIC, NORMAL INSPECTION, NORMOCEPHALIC - Eye Exam Eye Exam: EOMI, Normal appearance, PERRL Pupil Exam: NORMAL ACCOMODATION, PERRL - ENT Exam ENT Exam: Mucous Membranes Moist, Normal Exam - Neck Exam Neck exam: Positive for: Normal Inspection - Respiratory Exam Respiratory Exam: Clear to Auscultation Bilateral, NORMAL BREATHING PATTERN - Cardiovascular Exam Cardiovascular Exam: REGULAR RHYTHM - GI/Abdominal Exam GI & Abdominal Exam: Normal Bowel Sounds, Soft. absent: Tenderness - Rectal Exam Rectal Exam: Deferred - Exam Exam: NORMAL INSPECTION - Extremities Exam Extremities exam: Positive for: normal inspection - Back Exam Back exam: NORMAL INSPECTION - Neurological Exam Neurological exam: Alert, CN II-XII Intact, Normal Gait, Oriented x3, Reflexes Normal - Psychiatric Exam Psychiatric exam: Normal Affect, Normal Mood - Skin Skin Exam: Dry, Intact, Normal Color, Warm Results - Vital Signs Recent Vital Signs: Last Vital Signs Temp 97.9 F 07/21/18 16:00 Pulse 92 H 07/21/18 16:00 Resp 20 07/21/18 16:00 BP 116/79 07/21/18 16:00 Pulse Ox 94 L 07/21/18 16:00 - Labs Result Diagrams: 07/22/18 07:26 07/22/18 07:26 Labs: Laboratory Results - last 24 hr 07/18/18 07/18/18 07/20/18 15:08 15:08 20:53 WBC RBC Hgb Hct MCV MCH MCHC RDW Plt Count MPV Neut % (Auto) Lymph % (Auto) [place] % (Auto) Eos % (Auto) Baso % (Auto) Neut # (Auto) Lymph # (Auto) [place] # (Auto) Eos # (Auto) Baso # (Auto) ESR PT INR Sodium Potassium Chloride Carbon Dioxide Anion Gap BUN Creatinine Est GFR ( Amer) Est GFR (Non-Af Amer) Random Glucose Calcium Phosphorus Magnesium Iron TIBC % Saturation Transferrin Ferritin Total Bilirubin AST ALT Alkaline Phosphatase Total Protein Albumin Globulin Albumin/Globulin Ratio Vitamin B12 Folate Fluid Source Fluid Appearance Fluid WBC Fluid RBC Fluid Tot Cell Count Fluid Neutrophils Fluid Lymphocytes Fld Monocyte/Macrophag Fluid Comment Stool Occult Blood Negative Mycoplasma pneumon IgM 16 TB Test (QFT) Nil 0.03 TB Test Mitogen - Nil 8.12 TB Test Antigen - Nil 6.36 TB Test TB - Nil 5.21 TB Test (QFT) Positive H 07/21/18 07/21/18 07/21/18 06:42 06:42 06:42 WBC 6.2 RBC 4.45 Hgb 11.7 L Hct 35.4 MCV 79.7 L MCH 26.3 L MCHC 33.0 RDW 17.2 H Plt Count 266 MPV 7.4 Neut % (Auto) 52.9 Lymph % (Auto) 23.2 [place] % (Auto) 10.6 H Eos % (Auto) 12.8 H Baso % (Auto) 0.5 Neut # (Auto) 3.3 Lymph # (Auto) 1.4 [place] # (Auto) 0.7 Eos # (Auto) 0.8 H Baso # (Auto) 0.0 ESR PT INR Sodium 137 Potassium 3.8 Chloride 105 Carbon Dioxide 24 Anion Gap 11 BUN 12 Creatinine 1.0 Est GFR ( Amer) > 60 Est GFR (Non-Af Amer) > 60 Random Glucose 89 Calcium 9.0 Phosphorus 3.9 Magnesium 2.2 Iron 49 TIBC 210 L % Saturation 23 Transferrin Ferritin Total Bilirubin 0.2 AST 91 H D ALT 89 H D Alkaline Phosphatase 137 H Total Protein 6.7 Albumin 3.1 L Globulin 3.6 Albumin/Globulin Ratio 0.9 L Vitamin B12 Folate Fluid Source Fluid Appearance Fluid WBC Fluid RBC Fluid Tot Cell Count Fluid Neutrophils Fluid Lymphocytes Fld Monocyte/Macrophag Fluid Comment Stool Occult Blood Mycoplasma pneumon IgM TB Test (QFT) Nil TB Test Mitogen - Nil TB Test Antigen - Nil TB Test TB - Nil TB Test (QFT) 07/21/18 07/21/18 07/21/18 06:42 06:42 06:42 WBC RBC Hgb Hct MCV MCH MCHC RDW Plt Count MPV Neut % (Auto) Lymph % (Auto) [place] % (Auto) Eos % (Auto) Baso % (Auto) Neut # (Auto) Lymph # (Auto) [place] # (Auto) Eos # (Auto) Baso # (Auto) ESR PT 15.0 H INR 1.4 Sodium Potassium Chloride Carbon Dioxide Anion Gap BUN Creatinine Est GFR ( Amer) Est GFR (Non-Af Amer) Random Glucose Calcium Phosphorus Magnesium Iron TIBC % Saturation Transferrin 126.20 L Ferritin 169.0 Total Bilirubin AST ALT Alkaline Phosphatase Total Protein Albumin Globulin Albumin/Globulin Ratio Vitamin B12 427 Folate 7.0 Fluid Source Fluid Appearance Fluid WBC Fluid RBC Fluid Tot Cell Count Fluid Neutrophils Fluid Lymphocytes Fld Monocyte/Macrophag Fluid Comment Stool Occult Blood Mycoplasma pneumon IgM TB Test (QFT) Nil TB Test Mitogen - Nil TB Test Antigen - Nil TB Test TB - Nil TB Test (QFT) 07/21/18 07/21/18 11:33 17:02 WBC RBC Hgb Hct MCV MCH MCHC RDW Plt Count MPV Neut % (Auto) Lymph % (Auto) [place] % (Auto) Eos % (Auto) Baso % (Auto) Neut # (Auto) Lymph # (Auto) [place] # (Auto) Eos # (Auto) Baso # (Auto) ESR 32 H PT INR Sodium Potassium Chloride Carbon Dioxide Anion Gap BUN Creatinine Est GFR ( Amer) Est GFR (Non-Af Amer) Random Glucose Calcium Phosphorus Magnesium Iron TIBC % Saturation Transferrin Ferritin Total Bilirubin AST ALT Alkaline Phosphatase Total Protein Albumin Globulin Albumin/Globulin Ratio Vitamin B12 Folate Fluid Source Pleural/thoracentesi Fluid Appearance Bloody Fluid WBC 4661.0 H Fluid RBC 32413.0 H Fluid Tot Cell Count 100 H Fluid Neutrophils 10.0 H Fluid Lymphocytes 86.0 H Fld Monocyte/Macrophag 1 H Fluid Comment Stool Occult Blood Mycoplasma pneumon IgM TB Test (QFT) Nil TB Test Mitogen - Nil TB Test Antigen - Nil TB Test TB - Nil TB Test (QFT) Assessment & Plan - Assessment and Plan (Free Text) Assessment: 62 year old male with a history of HTN, CVA, psoriasis on Humira, presenting with progressive weakness, found to have radiographic concern for malignancy. The patient notes to starting Humara about 6 months ago for worsening psoriasis. He began to feel weak with this treatment and discontinued it. He notes to progressive cough and shortness of breath. He has lost 20-30 pounds over the course of [address] C/A/P revealed irregularity involving the stomach with lung lesions, splenic lesions, omental disease, and lymphadenopathy. TB to be ruled out- on isolation await smears/ cultures For Biopsy in am
[2018-07-22 07:43] LABS: BASO # 0.1 K/uL (0.0-0.2); BASO % 0.9 % (0.0-2.0); EOS # 1.1 K/uL (0.0-0.7); EOS % 16.4 % (0.0-4.0); HEMOGLOBIN 12.2 g/dL (12.0-18.0); LYMPH # 1.4 K/uL (1.0-4.3); LYMPH % 21.2 % (20.0-40.0); MEAN CELL VOLUME 80.3 fL (80.0-94.0); MEAN CORPUSCULAR HEMOGLOBIN 26.7 pg (27.0-31.0); MEAN CORPUSCULAR HGB CONC 33.2 g/dL (33.0-37.0); MEAN PLATELET VOLUME 7.4 fL (7.2-11.7); MONO # 0.5 K/uL (0.0-0.8); MONO % 7.8 % (0.0-10.0); NEUT # 3.6 K/uL (1.8-7.0); NEUT % 53.7 % (50.0-75.0); NRBC % 0.1 % (0.0-2.0); RBC 4.57 Mil/uL (4.40-5.90); WHITE BLOOD COUNT 6.6 K/uL (4.8-10.8)
[2018-07-22 07:51] LABS: INR 1.3; PROTHROMBIN TIME 13.8 SECONDS (9.7-12.2)
[2018-07-22 08:05] LABS: ALB/GLOB RATIO 0.9 (1.0-2.1); ALBUMIN 3.6 g/dL (3.5-5.0); ALT/SGPT 121 U/L (21-72); AST/SGOT 119 U/L (17-59); BLOOD UREA NITROGEN 12 mg/dL (9-20); CALCIUM 9.4 mg/dl (8.6-10.4); GFR NON-AFRICAN AMERICAN > 60
[2018-07-22] MEDS: Potassium Chloride 20 mEq ER Tab PO SCH (08:53)
[2018-07-22] MEDS: Pantoprazole 40 mg EC Tab PO SCH (09:30)
[2018-07-22] MEDS: POLYETHYLENE GLYCOL 3350 17 GM/Dose PACKET PO SCH ×2 (09:30→09:44)
--- NOTE | 2018-07-22 10:40 | CP.PCM.PN ---
<Kenroy Alfonso - Last Filed: 07/22/18 17:54> Subjective - Date & Time of Evaluation Date of Evaluation: 07/22/18 Time of Evaluation: 11:00 - Subjective Subjective: Medicine progress note for Dr. Mejia Patient was seen and examined this morning. Denies any acute complaints at this time. Denies fever, chills, chest pain, sob, abdominal pain, n/v/d, rash, bone pain, gait instability, headache, visual changes, dizziness. Objective - Vital Signs/Intake and Output Vital Signs (last 24 hours): Temp Pulse Resp BP Pulse Ox 98.1 F 78 20 107/66 97 07/22/18 07:27 07/22/18 07:27 07/22/18 07:27 07/22/18 07:27 07/22/18 07:27 Intake and Output: 07/22/18 07/22/18 06:59 18:59 Intake Total 1000 Balance 1000 - Medications Medications: Current Medications Albuterol/Ipratropium (Duoneb 3 Mg/0.5 Mg (3 Ml) Ud) 3 ml INH RQ4 PRN PRN Reason: Shortness of Breath Last Admin: 07/21/18 12:45 Dose: 3 ml Aspirin (Aspirin Chewable) 81 mg PO DAILY [facility] Last Admin: 07/22/18 10:29 Dose: 81 mg Azithromycin (Zithromax) 500 mg PO DAILY [facility]; Protocol Last Admin: 07/22/18 09:29 Dose: 500 mg Finasteride (Proscar) 5 mg PO DAILY [facility] Last Admin: 07/22/18 09:30 Dose: 5 mg Furosemide (Lasix) 40 mg PO DAILY [facility] Last Admin: 07/22/18 09:45 Dose: Not Given Heparin Sodium (Porcine) (Heparin) 5,000 units SC Q8 [facility] Last Admin: 07/20/18 21:13 Dose: 5,000 units Ceftriaxone Sodium 1 gm/ (Sodium Chloride) 100 mls @ 100 mls/hr IVPB DAILY [facility]; Protocol Last Admin: 07/22/18 09:30 Dose: 100 mls/hr Metoprolol Tartrate (Lopressor) 50 mg PO DAILY [facility] Last Admin: 07/22/18 09:30 Dose: 50 mg Ondansetron HCl (Zofran Inj) 4 mg IVP Q6H PRN PRN Reason: Nausea/Vomiting Pantoprazole Sodium (Protonix Ec Tab) 40 mg PO DAILY [facility] Last Admin: 07/22/18 09:30 Dose: 40 mg Polyethylene Glycol (Miralax) 17 gm PO DAILY [facility] Last Admin: 07/22/18 09:44 Dose: Not Given Potassium Chloride (K-Dur 20 Meq Er Tab) 20 meq PO BRK [facility] Last Admin: 07/22/18 08:53 Dose: 20 meq Rosuvastatin Calcium (Crestor) 5 mg PO HS [facility] Last Admin: 07/21/18 21:48 Dose: 5 mg Tamsulosin HCl (Flomax) 0.4 mg PO DAILY [facility] Last Admin: 07/22/18 09:44 Dose: Not Given Zinc Sulfate (Zinc Sulfate 220 Mg Cap) 220 mg PO DAILY [facility] Last Admin: 07/22/18 09:30 Dose: 220 mg - Labs Labs: 07/22/18 07:26 07/22/18 07:26 PT 13.8 SECONDS (9.7-12.2) H 07/22/18 07:26 INR 1.3 07/22/18 07:26 APTT 31 SECONDS (21-34) 07/22/18 07:26 - Additional Findings Additional findings: - Constitutional Appears: Non-toxic, No Acute Distress - Head Exam Head Exam: ATRAUMATIC, NORMAL INSPECTION, NORMOCEPHALIC - Eye Exam Eye Exam: EOMI, Normal appearance, PERRL. absent: Scleral icterus - ENT Exam ENT Exam: Mucous Membranes Moist, Normal Exam - Neck Exam Neck Exam: Full ROM, Normal Inspection - Respiratory Exam Respiratory Exam: Clear to Auscultation Bilateral, NORMAL BREATHING PATTERN. absent: Accessory Muscle Use, Rhonchi, Wheezes, Respiratory Distress, Stridor - Cardiovascular Exam Cardiovascular Exam: REGULAR RHYTHM, +S1, +S2 - GI/Abdominal Exam GI & Abdominal Exam: Soft, Normal Bowel Sounds. absent: Firm, Guarding, Rigid, Tenderness, Rebound - Extremities Exam Extremities Exam: Full ROM, Normal Capillary Refill, Normal Inspection - Back Exam Back Exam: NORMAL INSPECTION - Neurological Exam Neurological Exam: Alert, Awake, Oriented x3 - Skin Skin Exam: Dry, Intact, Normal Color, Warm Assessment and Plan - Assessment and Plan (Free Text) Assessment: 62 year old male with PMHx of HTN, HLD, T2DM, asthma, BPH, recent PNA presenting to ED with generalized weakness, dry cough with associated sob x 4 months. Unintentional weight loss within the last 3 months, b/l pleural effusions noted on CT chest with multiple mets of unknown origin. R-sided thoracentesis done 07/21. Plan for laparoscopy to biopsy LNs. Quantiferon gold positive- patient placed on isolation pending 3 AFB sputums. Planned for potential laproscopic lymph node biopsy. Plan: Pleural effusions, R>L - Urine legionella negative - Influenza negative - HIV negative - Hepatitis panel negative - ESR 42-->32 - CRP 25.7 - BNP 41.9 - Urine Cx no growth - Blood Culture: no growth x4 days - PFT report (06/13): Reduced FEV1 and FVC but FEV1/FVC ratio is increased. The MVV is reduced. The slow vital capacity is reduced. Following administration of bronchodilators, there is no significant response. The reduction in FVC suggests a restrictive process. -duonebs 3q4 prn - CT chest (06/06/18): prominent b/l pleural effusions, R>L, subsegmental atelectasis at b/l lung bases, focal calcified plaque invovling L coronary artery and thoracic aorta. Fatty changes of the liver. Heterogenous attenuation and enhancement of thyroid gland. - CTA chest (06/06/18): no evidence of PE. - CXR on admission: asymmetric elevation of R hemidiaphragm, unknown chronicity - CT chest on admission: Small to moderate R pleural effusion, trace L pleural effusion both with associated consolidations. Patchy infiltrate at R lung base may represent superimposed infection - Abdominal US: no evidence of portal vein thrombosis. Heterogenous liver. Echogenic foci noted in central portion of spleen. - Thoracentesis on 07/21- 950 cc - WBC, 4661, Cell count 100, Neutrophils 10, Lymphocyte 86, Monocyte/Macrophage 1 - Lasix 40 mg PO daily - KCl 20 mEq PO daily - Azithromycin 500 mg PO daily, Rocephin 1 gm IV daily- started 07/19, discontinued today - Duoneb Q4H PRN - Pulmonology consulted (Denita) - IR consulted (Chapito)- thoracentesis 07/21 Multiple lesions of metastatic malignancy - Unintentional weight loss (~10 kg in last 3 months) -CT chest/abdomen/pelvis: Numerous too small to characterize thyroid nodules. Cluster of nodules in RUL lung up to 6mm. Innumerable tiny splenic hypodensities. Hepatic steatosis. Questional presence of serosal implant a nterior to L hepatic lobe. Evidence of omental mets. Stomach is nondistended but thick-walled and edematous. Small to moderate pelvic free fluid. Mediastinal/prevascular and mesenteric adenopathy. -EGD report (07/19): Z line irregular, 38 cm from the incisors. Biopsied. LA Grade C esophagitis. Submucosal nodule found in esophagus. Gastritis, biopsied. Congested duodenal mucosa, biopsed. Multiple duodenal ulcers, biopsed. - Biopsies: severe ulcerative esophagitis, mild chronic gastritis, mod-severe duodenitis - Heme/Onc consulted (Kevin) - GI consulted (Mitchell)- colonoscopy as outpatient - IR consulted (Chapito)- thoracentesis 07/21 - Surgery consulted (Andres) Potential laproscopic biopsy today, pt remains NPO. Tuberculosis - From [place], weight loss, cough, recent Humira injections - Quantiferon gold positive - Airborne isolation - AFB sputum pending x3 - ID consulted (Barbara), possibly TB due to thoracentesis results Anemia - Hgb normal on admission--> 11.7 - FOBT negative - Iron low/normal 49, TIBC low (210), %sat wnl, ferritin wnl - B12, folate wnl Transaminitis, acute, mild - Hepatitis panel negative - Avoid hepatotoxic agents - GI consulted (Mitchell) Constipation, acute - Miralax 17 gm PO daily Benign prostatic hypertrophy, chronic - CT abdomen/pelvis: Heterogenous enlarged prostate gland containing calcification - PSA wnl - Tamsulosin 0.4 mg PO daily - Finasteride 5 mg PO daily Hypertension, chronic - Vitals Q6H - Lopressor 50 mg PO daily - ASA 81 mg PO daily Hyperlipidemia, chronic - Crestor 5 mg PO QHS Ppx: VTE: SCDs, Heparin 5000 units SC Q8H GI: Protonix 40 mg PO daily Diet: Heart healthy <Polo Mejia - Last Filed: 07/23/18 17:17> Objective - Vital Signs/Intake and Output Vital Signs (last 24 hours): Temp Pulse Resp BP Pulse Ox 98.1 F 64 20 111/68 98 07/23/18 16:00 07/23/18 16:00 07/23/18 16:00 07/23/18 16:00 07/23/18 16:00 Intake and Output: 07/23/18 07/23/18 06:59 18:59 Intake Total 200 600 Balance 200 600 - Medications Medications: Current Medications Albuterol/Ipratropium (Duoneb 3 Mg/0.5 Mg (3 Ml) Ud) 3 ml INH RQ4 PRN PRN Reason: Shortness of Breath Last Admin: 07/21/18 12:45 Dose: 3 ml Aspirin (Aspirin Chewable) 81 mg PO DAILY [facility] Last Admin: 07/23/18 09:58 Dose: Not Given Finasteride (Proscar) 5 mg PO DAILY [facility] Last Admin: 07/23/18 09:59 Dose: Not Given Heparin Sodium (Porcine) (Heparin) 5,000 units SC Q8 [facility] Last Admin: 07/23/18 14:17 Dose: 5,000 units Metoprolol Tartrate (Lopressor) 50 mg PO DAILY [facility] Last Admin: 07/23/18 09:32 Dose: 50 mg Ondansetron HCl (Zofran Inj) 4 mg IVP Q6H PRN PRN Reason: Nausea/Vomiting Pantoprazole Sodium (Protonix Ec Tab) 40 mg PO DAILY [facility] Last Admin: 07/23/18 09:31 Dose: 40 mg Polyethylene Glycol (Miralax) 17 gm PO DAILY PRN PRN Reason: Constipation Rosuvastatin Calcium (Crestor) 5 mg PO HS [facility] Last Admin: 07/22/18 21:45 Dose: 5 mg Tamsulosin HCl (Flomax) 0.4 mg PO DAILY [facility] Last Admin: 07/23/18 09:59 Dose: Not Given Zinc Sulfate (Zinc Sulfate 220 Mg Cap) 220 mg PO DAILY [facility] Last Admin: 07/23/18 09:32 Dose: 220 mg - Labs Labs: 07/23/18 08:15 07/23/18 08:15 PT 13.8 SECONDS (9.7-12.2) H 07/22/18 07:26 INR 1.3 07/22/18 07:26 APTT 31 SECONDS (21-34) 07/22/18 07:26 Attending/Attestation - Attestation I have personally seen and examined this patient.: Yes I have fully participated in the care of the patient.: Yes I have reviewed all pertinent clinical information, including history, physical exam and plan: Yes Notes (Text): Denies fever,no abdominal pain,no cough,no sob 1.Pleural effusion 2multiple lesions r/o malignancy 3r/o TB quanterfiron gold positive 4.Anemia 5.Transaminitis 6. HTN 7.PBH follow AFB x 3,going for laparoscopic with biopsy
--- NOTE | 2018-07-23 07:25 | CP.PCM.PN ---
<Leatha Faye - Last Filed: 07/23/18 17:17> Subjective - Date & Time of Evaluation Date of Evaluation: 07/23/18 Time of Evaluation: 07:25 - Subjective Subjective: PGY-1 Leatha Faye D.O. Medicine progress note for Dr. Mejia's service: Patient was seen and examined this morning. He says he feels okay but is anxious about his lab results. He denies SOB. He says his cough is improved. He is tolerating PO diet. Denies N/V/D/C. Objective - Vital Signs/Intake and Output Vital Signs (last 24 hours): Temp Pulse Resp BP Pulse Ox 97.8 F 62 20 100/63 96 07/23/18 00:00 07/23/18 00:00 07/23/18 00:00 07/23/18 00:00 07/23/18 00:00 Intake and Output: 07/23/18 07/23/18 06:59 18:59 Intake Total 200 Balance 200 - Medications Medications: Current Medications Albuterol/Ipratropium (Duoneb 3 Mg/0.5 Mg (3 Ml) Ud) 3 ml INH RQ4 PRN PRN Reason: Shortness of Breath Last Admin: 07/21/18 12:45 Dose: 3 ml Aspirin (Aspirin Chewable) 81 mg PO DAILY [facility] Last Admin: 07/22/18 10:29 Dose: 81 mg Azithromycin (Zithromax) 500 mg PO DAILY [facility]; Protocol Last Admin: 07/22/18 09:29 Dose: 500 mg Finasteride (Proscar) 5 mg PO DAILY [facility] Last Admin: 07/22/18 09:30 Dose: 5 mg Furosemide (Lasix) 40 mg PO DAILY [facility] Last Admin: 07/22/18 09:45 Dose: Not Given Heparin Sodium (Porcine) (Heparin) 5,000 units SC Q8 [facility] Last Admin: 07/20/18 21:13 Dose: 5,000 units Ceftriaxone Sodium 1 gm/ (Sodium Chloride) 100 mls @ 100 mls/hr IVPB DAILY [facility]; Protocol Last Admin: 07/22/18 09:30 Dose: 100 mls/hr Metoprolol Tartrate (Lopressor) 50 mg PO DAILY [facility] Last Admin: 07/22/18 09:30 Dose: 50 mg Ondansetron HCl (Zofran Inj) 4 mg IVP Q6H PRN PRN Reason: Nausea/Vomiting Pantoprazole Sodium (Protonix Ec Tab) 40 mg PO DAILY [facility] Last Admin: 07/22/18 09:30 Dose: 40 mg Polyethylene Glycol (Miralax) 17 gm PO DAILY [facility] Last Admin: 07/22/18 09:44 Dose: Not Given Potassium Chloride (K-Dur 20 Meq Er Tab) 20 meq PO BRK [facility] Last Admin: 07/22/18 08:53 Dose: 20 meq Rosuvastatin Calcium (Crestor) 5 mg PO HS [facility] Last Admin: 07/22/18 21:45 Dose: 5 mg Tamsulosin HCl (Flomax) 0.4 mg PO DAILY [facility] Last Admin: 07/22/18 09:44 Dose: Not Given Zinc Sulfate (Zinc Sulfate 220 Mg Cap) 220 mg PO DAILY [facility] Last Admin: 07/22/18 09:30 Dose: 220 mg - Labs Labs: 07/22/18 07:26 07/22/18 07:26 PT 13.8 SECONDS (9.7-12.2) H 07/22/18 07:26 INR 1.3 07/22/18 07:26 APTT 31 SECONDS (21-34) 07/22/18 07:26 - Additional Findings Additional findings: - Constitutional Appears: Non-toxic, No Acute Distress - Head Exam Head Exam: ATRAUMATIC, NORMAL INSPECTION, NORMOCEPHALIC - Eye Exam Eye Exam: EOMI, Normal appearance, PERRL. absent: Scleral icterus - ENT Exam ENT Exam: Mucous Membranes Moist, Normal Exam - Neck Exam Neck Exam: Full ROM, Normal Inspection - Respiratory Exam Respiratory Exam: Clear to Auscultation Bilateral, NORMAL BREATHING PATTERN. absent: Accessory Muscle Use, Rhonchi, Wheezes, Respiratory Distress, Stridor Clean, dry at site of thoracentesis (Right back) - Cardiovascular Exam Cardiovascular Exam: REGULAR RHYTHM, +S1, +S2 - GI/Abdominal Exam GI & Abdominal Exam: Soft, Normal Bowel Sounds. absent: Firm, Guarding, Rigid, Tenderness, Rebound - Extremities Exam Extremities Exam: Full ROM, Normal Capillary Refill, Normal Inspection - Back Exam Back Exam: NORMAL INSPECTION - Neurological Exam Neurological Exam: Alert, Awake, Oriented x3 - Skin Skin Exam: Dry, Intact, Normal Color, Warm Assessment and Plan - Assessment and Plan (Free Text) Assessment: 62 year old male with PMHx of HTN, HLD, T2DM, asthma, BPH, recent PNA presenting to ED with generalized weakness, dry cough with associated sob x 4 months. Uni ntentional weight loss within the last 3 months, b/l pleural effusions noted on CT chest with multiple mets of unknown origin. R-sided thoracentesis done 07/21. Fluid with significantly elevated RBCs and lymphocytes. Plan for laparoscopy to biopsy LNs tomorrow 07/24. Quantiferon gold positive- patient placed on isolation pending 3 AFB sputums. Plan: Pleural effusions, R>L- suspect malignant vs TB - Urine legionella negative - Influenza negative - HIV negative - Hepatitis panel negative - ESR 42-->32 - CRP 25.7 - BNP 41.9 - Urine Cx no growth - Blood Culture: no growth >4 days - PFT report (06/13): Reduced FEV1 and FVC but FEV1/FVC ratio is increased. The MVV is reduced. The slow vital capacity is reduced. Following administration of bronchodilators, there is no significant response. The reduction in FVC suggests a restrictive process. - CT chest (06/06/18): prominent b/l pleural effusions, R>L, subsegmental atelectasis at b/l lung bases, focal calcified plaque invovling L coronary artery and thoracic aorta. Fatty changes of the liver. Heterogenous attenuation and enhancement of thyroid gland. - CTA chest (06/06/18): no evidence of PE. - CXR on admission: asymmetric elevation of R hemidiaphragm, unknown chronicity - CT chest on admission: Small to moderate R pleural effusion, trace L pleural effusion both with associated consolidations. Patchy infiltrate at R lung base may represent superimposed infection - Abdominal US: no evidence of portal vein thrombosis. Heterogenous liver. Echogenic foci noted in central portion of spleen. - Echo pending - Thoracentesis on 07/21- 950 cc RBC 35,711 WBC 4661 Neutro 10 Lympho 86 Saline 1 Eosino 3 Anaerobe Cx no growth - Other studies pending - Discontinue Lasix 40 mg PO daily - Discontinue KCl 20 mEq PO daily - Discontinue Azithromycin 500 mg PO daily- started 07/19 - Discontinue Rocephin 1 gm IV daily- started 07/19 - Duoneb Q4H PRN - Pulmonology consulted (Elamir) - IR consulted (Chapito)- thoracentesis 07/21 Multiple lesions of metastatic malignancy or Tuberculosis - Unintentional weight loss (~10 kg in last 3 months) -CT chest/abdomen/pelvis: Numerous too small to characterize thyroid nodules. Cluster of nodules in RUL lung up to 6mm. Innumerable tiny splenic hypodensities. Hepatic steatosis. Questional presence of serosal implant anterior to L hepatic lobe. Evidence of omental mets. Stomach is nondistended but thick-walled and edematous. Small to moderate pelvic free fluid. Mediastinal/prevascular and mesenteric adenopathy. -EGD report (07/19): Z line irregular, 38 cm from the incisors. Biopsied. LA Grade C esophagitis. Submucosal nodule found in esophagus. Gastritis, biopsied. Congested duodenal mucosa, biopsed. Multiple duodenal ulcers, biopsed. - Biopsies: severe ulcerative esophagitis, mild chronic gastritis, mod-severe duodenitis - CA 19-9 mildly elev (39.1) - PSA, CEA wnl - Heme/Onc consulted (Kevin) - GI consulted (Mitchell)- colonoscopy as outpatient - IR consulted (Chapito)- thoracentesis 07/21 - Surgery consulted (Andres)- laparoscopy tomorrow 07/24 Tuberculosis - From [place], weight loss, cough, recent Humira injections - Quantiferon gold positive - Airborne isolation - AFB sputum pending x3- 3 sent to lab - ID consulted (Barbara) Anemia, stable - Hgb normal on admission--> 11.7 - FOBT negative x2 - Iron low/normal 49, TIBC low (210), %sat wnl, ferritin wnl - B12, folate wnl - Retic count 1 Transaminitis, acute, mild, improving - AST 95, ALT 103 - Discontinued antibiotics - Hepatitis panel negative - Avoid hepatotoxic agents - GI consulted (Mitchell) Constipation, acute, improving - Miralax 17 gm PO daily PRN Benign prostatic hypertrophy, chronic - CT abdomen/pelvis: Heterogenous enlarged prostate gland containing calcification - PSA wnl - Tamsulosin 0.4 mg PO daily - Finasteride 5 mg PO daily Hypertension, chronic - Vitals Q6H - Lopressor 50 mg PO daily - ASA 81 mg PO daily Hyperlipidemia, chronic - Crestor 5 mg PO QHS Ppx: VTE: SCDs, Heparin 5000 units SC Q8H- hold pre-op GI: Protonix 40 mg PO daily Diet: Heart healthy- NPO after midnight for OR Case discussed with attending, Dr. Mejia. <Polo Mejia - Last Filed: 07/23/18 17:33> Objective - Vital Signs/Intake and Output Vital Signs (last 24 hours): Temp Pulse Resp BP Pulse Ox 98.1 F 64 20 111/68 98 07/23/18 16:00 07/23/18 16:00 07/23/18 16:00 07/23/18 16:00 07/23/18 16:00 Intake and Output: 07/23/18 07/23/18 06:59 18:59 Intake Total 200 600 Balance 200 600 - Medications Medications: Current Medications Albuterol/Ipratropium (Duoneb 3 Mg/0.5 Mg (3 Ml) Ud) 3 ml INH RQ4 PRN PRN Reason: Shortness of Breath Last Admin: 07/21/18 12:45 Dose: 3 ml Aspirin (Aspirin Chewable) 81 mg PO DAILY [facility] Last Admin: 07/23/18 09:58 Dose: Not Given Finasteride (Proscar) 5 mg PO DAILY [facility] Last Admin: 07/23/18 09:59 Dose: Not Given Heparin Sodium (Porcine) (Heparin) 5,000 units SC Q8 [facility] Last Admin: 07/23/18 14:17 Dose: 5,000 units Metoprolol Tartrate (Lopressor) 50 mg PO DAILY [facility] Last Admin: 07/23/18 09:32 Dose: 50 mg Pantoprazole Sodium (Protonix Ec Tab) 40 mg PO DAILY [facility] Last Admin: 07/23/18 09:31 Dose: 40 mg Polyethylene Glycol (Miralax) 17 gm PO DAILY PRN PRN Reason: Constipation Rosuvastatin Calcium (Crestor) 5 mg PO HS [facility] Last Admin: 07/22/18 21:45 Dose: 5 mg Tamsulosin HCl (Flomax) 0.4 mg PO DAILY [facility] Last Admin: 07/23/18 09:59 Dose: Not Given Zinc Sulfate (Zinc Sulfate 220 Mg Cap) 220 mg PO DAILY [facility] Last Admin: 07/23/18 09:32 Dose: 220 mg - Labs Labs: 07/23/18 08:15 07/23/18 08:15 PT 13.8 SECONDS (9.7-12.2) H 07/22/18 07:26 INR 1.3 07/22/18 07:26 APTT 31 SECONDS (21-34) 07/22/18 07:26 Attending/Attestation - Attestation I have personally seen and examined this patient.: Yes I have fully participated in the care of the patient.: Yes I have reviewed all pertinent clinical information, including history, physical exam and plan: Yes Notes (Text): seen and examined by me,no complain,All questions answered. patient is very anxious to find out AFB results and about biopsy goinf or laparoscopic biopsy tomorrow off antibiotics,monitor LFT
[2018-07-23] MEDS: Potassium Chloride 20 mEq ER Tab PO SCH (08:20)
[2018-07-23 08:43] LABS: BASO # 0.1 K/uL (0.0-0.2); BASO % 0.9 % (0.0-2.0); EOS % 16.2 % (0.0-4.0); HEMOGLOBIN 11.7 g/dL (12.0-18.0); LYMPH # 1.1 K/uL (1.0-4.3); LYMPH % 18.2 % (20.0-40.0); MEAN CELL VOLUME 81.4 fL (80.0-94.0); MEAN CORPUSCULAR HEMOGLOBIN 26.8 pg (27.0-31.0); MEAN PLATELET VOLUME 7.4 fL (7.2-11.7); MONO # 0.6 K/uL (0.0-0.8); MONO % 9.8 % (0.0-10.0); NEUT # 3.4 K/uL (1.8-7.0); NEUT % 54.9 % (50.0-75.0); RBC 4.35 Mil/uL (4.40-5.90); RED CELL DISTRIBUTION WIDTH 17.5 % (11.5-14.5); WHITE BLOOD COUNT 6.2 K/uL (4.8-10.8)
[2018-07-23 09:18] LABS: ALB/GLOB RATIO 0.9 (1.0-2.1); ALBUMIN 3.3 g/dL (3.5-5.0); ALT/SGPT 103 U/L (21-72); AST/SGOT 95 U/L (17-59); BLOOD UREA NITROGEN 14 mg/dL (9-20); CALCIUM 9.1 mg/dl (8.6-10.4); GFR NON-AFRICAN AMERICAN > 60
[2018-07-23] MEDS: Pantoprazole 40 mg EC Tab PO SCH (09:31)
[2018-07-23] MEDS: POLYETHYLENE GLYCOL 3350 17 GM/Dose PACKET PO SCH ×2 (09:31→09:46)
--- NOTE | 2018-07-23 09:39 | CP.PCM.PN ---
<AugustoCindy - Last Filed: 07/23/18 09:40> Subjective - Date & Time of Evaluation Date of Evaluation: 07/23/18 Time of Evaluation: 09:38 - Subjective Subjective: General Surgery Dr. Obando Pt seen and examined @bedside. No acute events overnight. Pt has no complaints this AM. reports decreased appetite. denies CP, SOB, F/C, N/V, abd pain. tolerating diet. Objective - Vital Signs/Intake and Output Vital Signs (last 24 hours): Temp Pulse Resp BP Pulse Ox 97.8 F 62 20 100/63 96 07/23/18 00:00 07/23/18 00:00 07/23/18 00:00 07/23/18 00:00 07/23/18 00:00 Intake and Output: 07/23/18 07/23/18 06:59 18:59 Intake Total 200 Balance 200 - Medications Medications: Current Medications Albuterol/Ipratropium (Duoneb 3 Mg/0.5 Mg (3 Ml) Ud) 3 ml INH RQ4 PRN PRN Reason: Shortness of Breath Last Admin: 07/21/18 12:45 Dose: 3 ml Aspirin (Aspirin Chewable) 81 mg PO DAILY [facility] Last Admin: 07/23/18 09:31 Dose: 81 mg Finasteride (Proscar) 5 mg PO DAILY [facility] Last Admin: 07/23/18 09:31 Dose: 5 mg Furosemide (Lasix) 20 mg PO DAILY [facility] Heparin Sodium (Porcine) (Heparin) 5,000 units SC Q8 [facility] Last Admin: 07/20/18 21:13 Dose: 5,000 units Metoprolol Tartrate (Lopressor) 50 mg PO DAILY [facility] Last Admin: 07/23/18 09:32 Dose: 50 mg Ondansetron HCl (Zofran Inj) 4 mg IVP Q6H PRN PRN Reason: Nausea/Vomiting Pantoprazole Sodium (Protonix Ec Tab) 40 mg PO DAILY [facility] Last Admin: 07/23/18 09:31 Dose: 40 mg Polyethylene Glycol (Miralax) 17 gm PO DAILY [facility] Last Admin: 07/23/18 09:31 Dose: 17 gm Potassium Chloride (K-Dur 20 Meq Er Tab) 20 meq PO BRK [facility] Last Admin: 07/23/18 08:20 Dose: 20 meq Rosuvastatin Calcium (Crestor) 5 mg PO HS [facility] Last Admin: 07/22/18 21:45 Dose: 5 mg Tamsulosin HCl (Flomax) 0.4 mg PO DAILY [facility] Last Admin: 07/23/18 09:32 Dose: 0.4 mg Zinc Sulfate (Zinc Sulfate 220 Mg Cap) 220 mg PO DAILY [facility] Last Admin: 07/23/18 09:32 Dose: 220 mg - Labs Labs: 07/23/18 08:15 07/23/18 08:15 PT 13.8 SECONDS (9.7-12.2) H 07/22/18 07:26 INR 1.3 07/22/18 07:26 APTT 31 SECONDS (21-34) 07/22/18 07:26 - Constitutional Appears: Non-toxic, No Acute Distress - Head Exam Head Exam: NORMAL INSPECTION - Eye Exam Eye Exam: Normal appearance - ENT Exam ENT Exam: Mucous Membranes Moist - Respiratory Exam Respiratory Exam: NORMAL BREATHING PATTERN. absent: Accessory Muscle Use, Respiratory Distress - Cardiovascular Exam Cardiovascular Exam: REGULAR RHYTHM. absent: Bradycardia, Tachycardia - GI/Abdominal Exam GI & Abdominal Exam: Soft. absent: Distended, Tenderness - Extremities Exam Extremities Exam: Normal Inspection - Neurological Exam Neurological Exam: Alert, Awake, Oriented x3 - Psychiatric Exam Psychiatric exam: Normal Affect, Normal Mood - Skin Skin Exam: Dry, Intact, Normal Color, Warm Assessment and Plan - Assessment and Plan (Free Text) Assessment: 62 y/o M w/ metastatic disease, Quantiferon (+) Plan: - cont isolation - Abx per ID - NPO@[place] - OR tomorrow afternoon for Dx laparoscopy w/ Bx Pt discussed w/ Dr. Kaila Casas PGY3 <Daniel Ward - Last Filed: 07/23/18 14:17> Objective - Vital Signs/Intake and Output Vital Signs (last 24 hours): Temp Pulse Resp BP Pulse Ox 98.9 F 80 18 117/74 96 07/23/18 09:45 07/23/18 09:45 07/23/18 09:45 07/23/18 09:45 07/23/18 09:45 Intake and Output: 07/23/18 07/23/18 06:59 18:59 Intake Total 200 Balance 200 - Medications Medications: Current Medications Albuterol/Ipratropium (Duoneb 3 Mg/0.5 Mg (3 Ml) Ud) 3 ml INH RQ4 PRN PRN Reason: Shortness of Breath Last Admin: 07/21/18 12:45 Dose: 3 ml Aspirin (Aspirin Chewable) 81 mg PO DAILY [facility] Last Admin: 07/23/18 09:58 Dose: Not Given Finasteride (Proscar) 5 mg PO DAILY [facility] Last Admin: 07/23/18 09:59 Dose: Not Given Heparin Sodium (Porcine) (Heparin) 5,000 units SC Q8 [facility] Last Admin: 07/22/18 14:00 Dose: Not Given Metoprolol Tartrate (Lopressor) 50 mg PO DAILY [facility] Last Admin: 07/23/18 09:32 Dose: 50 mg Ondansetron HCl (Zofran Inj) 4 mg IVP Q6H PRN PRN Reason: Nausea/Vomiting Pantoprazole Sodium (Protonix Ec Tab) 40 mg PO DAILY [facility] Last Admin: 07/23/18 09:31 Dose: 40 mg Polyethylene Glycol (Miralax) 17 gm PO DAILY PRN PRN Reason: Constipation Rosuvastatin Calcium (Crestor) 5 mg PO HS [facility] Last Admin: 07/22/18 21:45 Dose: 5 mg Tamsulosin HCl (Flomax) 0.4 mg PO DAILY [facility] Last Admin: 07/23/18 09:59 Dose: Not Given Zinc Sulfate (Zinc Sulfate 220 Mg Cap) 220 mg PO DAILY [facility] Last Admin: 07/23/18 09:32 Dose: 220 mg - Labs Labs: 07/23/18 08:15 07/23/18 08:15 PT 13.8 SECONDS (9.7-12.2) H 07/22/18 07:26 INR 1.3 07/22/18 07:26 APTT 31 SECONDS (21-34) 07/22/18 07:26 Assessment and Plan - Assessment and Plan (Free Text) Plan: All medical record entries made by the resident were at my direction and personally directed by me. I have reviewed the chart and agree that the record accurately reflects my personal performance of the history, physical exam, medical decision making,
[2018-07-23] MEDS ORDERED: POLYETHYLENE GLYCOL 3350 17 GM/Dose PACKET PO PRN (09:55)
--- NOTE | 2018-07-23 15:59 | CP.PCM.PN ---
Subjective - Date & Time of Evaluation Date of Evaluation: 07/23/18 Time of Evaluation: 08:00 - Subjective Subjective: chart reviewed patient examined no new complaints orders signed Objective - Vital Signs/Intake and Output Vital Signs (last 24 hours): Temp Pulse Resp BP Pulse Ox 98.9 F 80 18 117/74 96 07/23/18 09:45 07/23/18 09:45 07/23/18 09:45 07/23/18 09:45 07/23/18 09:45 Intake and Output: 07/23/18 07/23/18 06:59 18:59 Intake Total 200 600 Balance 200 600 - Medications Medications: Current Medications Albuterol/Ipratropium (Duoneb 3 Mg/0.5 Mg (3 Ml) Ud) 3 ml INH RQ4 PRN PRN Reason: Shortness of Breath Last Admin: 07/21/18 12:45 Dose: 3 ml Aspirin (Aspirin Chewable) 81 mg PO DAILY [facility] Last Admin: 07/23/18 09:58 Dose: Not Given Finasteride (Proscar) 5 mg PO DAILY [facility] Last Admin: 07/23/18 09:59 Dose: Not Given Heparin Sodium (Porcine) (Heparin) 5,000 units SC Q8 [facility] Last Admin: 07/23/18 14:17 Dose: 5,000 units Metoprolol Tartrate (Lopressor) 50 mg PO DAILY [facility] Last Admin: 07/23/18 09:32 Dose: 50 mg Ondansetron HCl (Zofran Inj) 4 mg IVP Q6H PRN PRN Reason: Nausea/Vomiting Pantoprazole Sodium (Protonix Ec Tab) 40 mg PO DAILY [facility] Last Admin: 07/23/18 09:31 Dose: 40 mg Polyethylene Glycol (Miralax) 17 gm PO DAILY PRN PRN Reason: Constipation Rosuvastatin Calcium (Crestor) 5 mg PO HS [facility] Last Admin: 07/22/18 21:45 Dose: 5 mg Tamsulosin HCl (Flomax) 0.4 mg PO DAILY [facility] Last Admin: 07/23/18 09:59 Dose: Not Given Zinc Sulfate (Zinc Sulfate 220 Mg Cap) 220 mg PO DAILY [facility] Last Admin: 07/23/18 09:32 Dose: 220 mg - Labs Labs: 07/23/18 08:15 07/23/18 08:15 PT 13.8 SECONDS (9.7-12.2) H 03/30/19 07:26 INR 1.3 07/22/18 07:26 APTT 31 SECONDS (21-34) 07/22/18 07:26 - Constitutional Appears: Non-toxic, Cachectic, Chronically Ill - Head Exam Head Exam: ATRAUMATIC, NORMAL INSPECTION, NORMOCEPHALIC - Eye Exam Eye Exam: EOMI, Normal appearance, PERRL Pupil Exam: NORMAL ACCOMODATION, PERRL - ENT Exam ENT Exam: Mucous Membranes Moist, Normal Exam - Neck Exam Neck Exam: Full ROM, Normal Inspection. absent: Lymphadenopathy - Respiratory Exam Respiratory Exam: Clear to Ausculation Bilateral, NORMAL BREATHING PATTERN - Cardiovascular Exam Cardiovascular Exam: REGULAR RHYTHM, +S1, +S2. absent: Murmur - GI/Abdominal Exam GI & Abdominal Exam: Soft, Normal Bowel Sounds. absent: Tenderness - Rectal Exam Rectal Exam: Deferred - Exam Exam: NORMAL INSPECTION - Extremities Exam Extremities Exam: Full ROM, Normal Capillary Refill, Normal Inspection. absent: Joint Swelling, Pedal Edema - Back Exam Back Exam: NORMAL INSPECTION - Neurological Exam Neurological Exam: Alert, Awake, CN II-XII Intact, Normal Gait, Oriented x3 - Psychiatric Exam Psychiatric exam: Normal Affect, Normal Mood - Skin Skin Exam: Dry, Intact, Normal Color, Warm Assessment and Plan (1) Anemia Status: Acute (2) Generalized weakness Status: Acute - Assessment and Plan (Free Text) Assessment: r/o disseminate TB' vs malignancy await AFB smears s/p peritoneal BX
--- NOTE | 2018-07-23 18:39 | CP.PCM.PN ---
Subjective - Date & Time of Evaluation Date of Evaluation: 07/21/18 Time of Evaluation: 12:00 - Subjective Subjective: No complaints. Objective - Vital Signs/Intake and Output Vital Signs (last 24 hours): Temp Pulse Resp BP Pulse Ox 98.1 F 64 20 111/68 98 07/23/18 16:00 07/23/18 16:00 07/23/18 16:00 07/23/18 16:00 07/23/18 16:00 Intake and Output: 07/23/18 07/23/18 06:59 18:59 Intake Total 200 600 Balance 200 600 - Medications Medications: Current Medications Albuterol/Ipratropium (Duoneb 3 Mg/0.5 Mg (3 Ml) Ud) 3 ml INH RQ4 PRN PRN Reason: Shortness of Breath Last Admin: 07/21/18 12:45 Dose: 3 ml Aspirin (Aspirin Chewable) 81 mg PO DAILY [facility] Last Admin: 07/23/18 09:58 Dose: Not Given Finasteride (Proscar) 5 mg PO DAILY [facility] Last Admin: 07/23/18 09:59 Dose: Not Given Heparin Sodium (Porcine) (Heparin) 5,000 units SC Q8 [facility] Last Admin: 07/23/18 14:17 Dose: 5,000 units Metoprolol Tartrate (Lopressor) 50 mg PO DAILY [facility] Last Admin: 07/23/18 09:32 Dose: 50 mg Pantoprazole Sodium (Protonix Ec Tab) 40 mg PO DAILY [facility] Last Admin: 07/23/18 09:31 Dose: 40 mg Polyethylene Glycol (Miralax) 17 gm PO DAILY PRN PRN Reason: Constipation Rosuvastatin Calcium (Crestor) 5 mg PO HS [facility] Last Admin: 07/22/18 21:45 Dose: 5 mg Tamsulosin HCl (Flomax) 0.4 mg PO DAILY [facility] Last Admin: 07/23/18 09:59 Dose: Not Given Zinc Sulfate (Zinc Sulfate 220 Mg Cap) 220 mg PO DAILY [facility] Last Admin: 07/23/18 09:32 Dose: 220 mg - Labs Labs: 07/23/18 08:15 07/23/18 08:15 PT 13.8 SECONDS (9.7-12.2) H 07/22/18 07:26 INR 1.3 07/22/18 07:26 APTT 31 SECONDS (21-34) 07/22/18 07:26 - Head Exam Head Exam: ATRAUMATIC - Eye Exam Eye Exam: Normal appearance - ENT Exam ENT Exam: Mucous Membranes Dry - Respiratory Exam Respiratory Exam: NORMAL BREATHING PATTERN - Cardiovascular Exam Cardiovascular Exam: +S1, +S2 - GI/Abdominal Exam GI & Abdominal Exam: Normal Bowel Sounds Assessment and Plan (1) Multiple lesions of metastatic malignancy Assessment & Plan: f/u thoracentesis cytology surgical evaluation for biopsy Status: Acute (2) Anemia Assessment & Plan: chronic disease Status: Acute
--- NOTE | 2018-07-23 18:41 | CP.PCM.PN ---
Subjective - Date & Time of Evaluation Date of Evaluation: 07/22/18 Time of Evaluation: 16:00 - Subjective Subjective: No complaints. Placed on isolation for rule out TB Objective - Vital Signs/Intake and Output Vital Signs (last 24 hours): Temp Pulse Resp BP Pulse Ox 98.1 F 64 20 111/68 98 07/23/18 16:00 07/23/18 16:00 07/23/18 16:00 07/23/18 16:00 07/23/18 16:00 Intake and Output: 07/23/18 07/23/18 06:59 18:59 Intake Total 200 600 Balance 200 600 - Medications Medications: Current Medications Albuterol/Ipratropium (Duoneb 3 Mg/0.5 Mg (3 Ml) Ud) 3 ml INH RQ4 PRN PRN Reason: Shortness of Breath Last Admin: 07/21/18 12:45 Dose: 3 ml Aspirin (Aspirin Chewable) 81 mg PO DAILY [facility] Last Admin: 07/23/18 09:58 Dose: Not Given Finasteride (Proscar) 5 mg PO DAILY [facility] Last Admin: 07/23/18 09:59 Dose: Not Given Heparin Sodium (Porcine) (Heparin) 5,000 units SC Q8 [facility] Last Admin: 07/23/18 14:17 Dose: 5,000 units Metoprolol Tartrate (Lopressor) 50 mg PO DAILY [facility] Last Admin: 07/23/18 09:32 Dose: 50 mg Pantoprazole Sodium (Protonix Ec Tab) 40 mg PO DAILY [facility] Last Admin: 07/23/18 09:31 Dose: 40 mg Polyethylene Glycol (Miralax) 17 gm PO DAILY PRN PRN Reason: Constipation Rosuvastatin Calcium (Crestor) 5 mg PO HS [facility] Last Admin: 07/22/18 21:45 Dose: 5 mg Tamsulosin HCl (Flomax) 0.4 mg PO DAILY [facility] Last Admin: 07/23/18 09:59 Dose: Not Given Zinc Sulfate (Zinc Sulfate 220 Mg Cap) 220 mg PO DAILY [facility] Last Admin: 07/23/18 09:32 Dose: 220 mg - Labs Labs: 07/23/18 08:15 07/23/18 08:15 PT 13.8 SECONDS (9.7-12.2) H 07/22/18 07:26 INR 1.3 07/22/18 07:26 APTT 31 SECONDS (21-34) 07/22/18 07:26 - Head Exam Head Exam: ATRAUMATIC - Eye Exam Eye Exam: Normal appearance - ENT Exam ENT Exam: Mucous Membranes Dry - Respiratory Exam Respiratory Exam: NORMAL BREATHING PATTERN - Cardiovascular Exam Cardiovascular Exam: +S1, +S2 - GI/Abdominal Exam GI & Abdominal Exam: Normal Bowel Sounds Assessment and Plan (1) Multiple lesions of metastatic malignancy Assessment & Plan: f/u cytology on pleural fluid for laparoscopy with biopsy Status: Acute (2) Anemia Assessment & Plan: chronic disease Status: Acute
--- NOTE | 2018-07-23 18:42 | CP.PCM.PN ---
Subjective - Date & Time of Evaluation Date of Evaluation: 07/23/18 Time of Evaluation: 12:00 - Subjective Subjective: No complaints. Objective - Vital Signs/Intake and Output Vital Signs (last 24 hours): Temp Pulse Resp BP Pulse Ox 98.1 F 64 20 111/68 98 07/23/18 16:00 07/23/18 16:00 07/23/18 16:00 07/23/18 16:00 07/23/18 16:00 Intake and Output: 07/23/18 07/23/18 06:59 18:59 Intake Total 200 600 Balance 200 600 - Medications Medications: Current Medications Albuterol/Ipratropium (Duoneb 3 Mg/0.5 Mg (3 Ml) Ud) 3 ml INH RQ4 PRN PRN Reason: Shortness of Breath Last Admin: 07/21/18 12:45 Dose: 3 ml Aspirin (Aspirin Chewable) 81 mg PO DAILY [facility] Last Admin: 07/23/18 09:58 Dose: Not Given Finasteride (Proscar) 5 mg PO DAILY [facility] Last Admin: 07/23/18 09:59 Dose: Not Given Heparin Sodium (Porcine) (Heparin) 5,000 units SC Q8 [facility] Last Admin: 07/23/18 14:17 Dose: 5,000 units Metoprolol Tartrate (Lopressor) 50 mg PO DAILY [facility] Last Admin: 07/23/18 09:32 Dose: 50 mg Pantoprazole Sodium (Protonix Ec Tab) 40 mg PO DAILY [facility] Last Admin: 07/23/18 09:31 Dose: 40 mg Polyethylene Glycol (Miralax) 17 gm PO DAILY PRN PRN Reason: Constipation Rosuvastatin Calcium (Crestor) 5 mg PO HS [facility] Last Admin: 07/22/18 21:45 Dose: 5 mg Tamsulosin HCl (Flomax) 0.4 mg PO DAILY [facility] Last Admin: 07/23/18 09:59 Dose: Not Given Zinc Sulfate (Zinc Sulfate 220 Mg Cap) 220 mg PO DAILY [facility] Last Admin: 07/23/18 09:32 Dose: 220 mg - Labs Labs: 07/23/18 08:15 07/23/18 08:15 PT 13.8 SECONDS (9.7-12.2) H 07/22/18 07:26 INR 1.3 07/22/18 07:26 APTT 31 SECONDS (21-34) 07/22/18 07:26 - Head Exam Head Exam: ATRAUMATIC - Eye Exam Eye Exam: Normal appearance - ENT Exam ENT Exam: Mucous Membranes Dry - Respiratory Exam Respiratory Exam: NORMAL BREATHING PATTERN - Cardiovascular Exam Cardiovascular Exam: +S1, +S2 - GI/Abdominal Exam GI & Abdominal Exam: Normal Bowel Sounds Assessment and Plan (1) Multiple lesions of metastatic malignancy Assessment & Plan: for laparoscpy in AM f/u cytology on pleural fluid Status: Acute (2) Anemia Assessment & Plan: chronic disease Status: Acute
--- NOTE | 2018-07-24 07:02 | CP.PCM.PN ---
<Bandar Yo - Last Filed: 07/24/18 07:39> Subjective - Date & Time of Evaluation Date of Evaluation: 07/24/18 Time of Evaluation: 07:02 - Subjective Subjective: PGY-1 Medicine Progress Note for Dr. Hair Patient seen and examined at bedside, resting comfortably. No acute overnight events reported. Patient remains on isolation precautions for suspected TB, remains NPO for diagnostic lap with bx later this afternoon. Patient continues to endorse dry cough, though improved, and decreased appetite. SOB is improved s/p R thoracentesis. No fevers/chills, chest pain, palpitations, abdominal pain, n/v/d/c. Objective - Vital Signs/Intake and Output Vital Signs (last 24 hours): Temp Pulse Resp BP Pulse Ox 98.2 F 66 20 102/66 97 07/24/18 00:00 07/24/18 00:00 07/24/18 00:00 07/24/18 00:00 07/24/18 00:00 Intake and Output: 07/24/18 07/24/18 06:59 18:59 Intake Total 500 Balance 500 - Medications Medications: Current Medications Albuterol/Ipratropium (Duoneb 3 Mg/0.5 Mg (3 Ml) Ud) 3 ml INH RQ4 PRN PRN Reason: Shortness of Breath Last Admin: 07/21/18 12:45 Dose: 3 ml Aspirin (Aspirin Chewable) 81 mg PO DAILY [facility] Last Admin: 07/23/18 09:58 Dose: Not Given Finasteride (Proscar) 5 mg PO DAILY [facility] Last Admin: 07/23/18 09:59 Dose: Not Given Heparin Sodium (Porcine) (Heparin) 5,000 units SC Q8 [facility] Last Admin: 07/23/18 21:46 Dose: Not Given Metoprolol Tartrate (Lopressor) 50 mg PO DAILY [facility] Last Admin: 07/23/18 09:32 Dose: 50 mg Pantoprazole Sodium (Protonix Ec Tab) 40 mg PO DAILY [facility] Last Admin: 07/23/18 09:31 Dose: 40 mg Polyethylene Glycol (Miralax) 17 gm PO DAILY PRN PRN Reason: Constipation Rosuvastatin Calcium (Crestor) 5 mg PO HS [facility] Last Admin: 07/23/18 21:43 Dose: 5 mg Tamsulosin HCl (Flomax) 0.4 mg PO DAILY [facility] Last Admin: 07/23/18 09:59 Dose: Not Given Zinc Sulfate (Zinc Sulfate 220 Mg Cap) 220 mg PO DAILY [facility] Last Admin: 07/23/18 09:32 Dose: 220 mg - Labs Labs: 07/23/18 08:15 07/23/18 08:15 PT 13.8 SECONDS (9.7-12.2) H 07/22/18 07:26 INR 1.3 07/22/18 07:26 APTT 31 SECONDS (21-34) 07/22/18 07:26 - Constitutional Appears: Non-toxic, No Acute Distress - Head Exam Head Exam: ATRAUMATIC, NORMAL INSPECTION, NORMOCEPHALIC - Eye Exam Eye Exam: EOMI, Normal appearance. absent: Scleral icterus Pupil Exam: NORMAL ACCOMODATION - ENT Exam ENT Exam: Mucous Membranes Moist, Normal Exam - Neck Exam Neck Exam: Full ROM, Normal Inspection. absent: Tenderness - Respiratory Exam Respiratory Exam: Clear to Ausculation Bilateral, NORMAL BREATHING PATTERN. absent: Accessory Muscle Use, Rales, Rhonchi, Wheezes, Respiratory Distress - Cardiovascular Exam Cardiovascular Exam: REGULAR RHYTHM, +S1, +S2 - GI/Abdominal Exam GI & Abdominal Exam: Soft, Normal Bowel Sounds. absent: Distended, Firm, Guarding, Rigid, Tenderness, Rebound - Extremities Exam Extremities Exam: Full ROM, Normal Capillary Refill, Normal Inspection. absent: Calf Tenderness, Pedal Edema - Back Exam Back Exam: NORMAL INSPECTION - Neurological Exam Neurological Exam: Alert, Awake, Oriented x3 - Skin Skin Exam: Dry, Intact, Normal Color, Warm Assessment and Plan - Assessment and Plan (Free Text) Assessment: 62 year old male with PMHx of HTN, HLD, T2DM, asthma, BPH, recent PNA presenting to ED with generalized weakness, dry cough with associated sob x 4 months. Unintentional weight loss within the last 3 months, b/l pleural effusions noted on CT chest with multiple mets of unknown origin. R-sided thoracentesis done . Fluid with significantly elevated RBCs and lymphocytes. Plan for laparoscopy to biopsy LNs tomorrow 07/24. Quantiferon gold positive- patient placed on isolation pending 3 AFB sputums. Plan: Pleural effusions, bilaterally -suspect maligancy vs disseminated TB -mycoplasma IgM negative, IgG positive -urine legionella negative -influenza negative -Urine culture negative -Blood Culture x 2 negative -quantiferon positive -f/u AFB sputum x 3 -CT chest report (06/06/18): prominent b/l pleural effusions, R>L, subsegmental atelectasis at b/l lung bases, focal calcified plaque involving L coronary artery and thoracic aorta. Fatty changes of the liver. Heterogenous attenuation and enhancement of thyroid gland. -CTA of the chest w/ contrast report (06/06/18): no evidence of PE. -CXR on admission: asymmetric elevation of R hemidiaphragm, unknown chronicity -CT chest on admission: Small to moderate R pleural effusion, trace L pleural effusion both with associated consolidations. Patchy infiltrate at R lung base may represent superimposed infection -Abdominal u/s: no evidence of portal vein thrombosis. Heterogenous liver. Echogenic foci noted in central portion of spleen. -IR recs (Dr. Uriarte) appreciated -s/p R thoracentesis (07/21), 950 cc zoe colored fluid drained -RBC 35,711 -WBC 4661 -Neutro 10 -Lympho 86 -[place] 1 -[place] 3 -Anaerobe Cx no growth -Other studies pending -Pulmonology (Dr. Conner) recs appreciated -duonebs q4 prn Unintentional weight loss Multiple lesions of metastatic malignancy -unintentional weight loss (~10 kg in last 3 months) -decreased appetite -CT chest/abdomen/pelvis: Numerous too small to characterize thyroid nodules. Cluster of nodules in RUL lung up to 6mm. Innumerable tiny splenic hypodensities. Hepatic steatosis. Questional presence of serosal implant ante rior to L hepatic lobe. Evidence of omental mets. Stomach is nondistended but thick-walled and edematous. Small to moderate pelvic free fluid. Mediastinal/prevascular and mesenteric adenopathy. -Heme/Onc (Dr. Brown) recs appreciated -f/u EGD for lesions; if negative would recommend IR biopsy of most accessible lesion -GI recs (Dr. eMdrano) appreciated -EGD report (07/19): Z line irregular, 38 cm from the incisors. Biopsied. LA Grade C esophagitis. Submucosal nodule found in esophagus. Gastritis, biopsied. Congested duodenal mucosa, biopsed. Multiple duodenal ulcers, biopsed. -Protonix 40 mg PO daily -No further planned GI intervention at this time, will sign off case. Patient will benefit from additional outpatient evaluation and elective follow up of esophageal SM lesion -IR (Dr. Uriarte) recs appreciated -Surgery (Dr. Bright) recs appreciated -NPO for diagnostic laparatomy with biopsy @ 1PM Suspected TB -pt originally from [place], weight loss, cough, recent Humira injections -Quantiferon gold positive -Airborne isolation -f/u AFB sputum pending x3 -ID recs (Barbara) appreciated Anemia of chronic disease - Hgb normal on admission--> 11.7 - FOBT negative x2 - Iron low/normal 49, TIBC low (210), %sat wnl, ferritin wnl - B12, folate wnl - Retic count 1 Transaminitis, improving -AST/ALT downtrending, continue to monitor -Abx d'c'd -Hepatitis panel negative -Avoid hepatotoxic agents -GI consulted (Mitchell) Hx of BPH -CT abdomen/pelvis: Heterogenous enlarged prostate gland containing calcification -PSA wnl -tamsulosin 0.4 mg PO daily -finasteride 5 mg PO daily Impaired glucose tolerance -not on any home meds -A1C 5.6 Hx of HTN -Lopressor 50 mg PO daily -ASA 81 mg PO daily Hx of HLD -Crestor 10 mg PO HS PPx, Diet, Disposition -DVT ppx: scds, heparin 5000 units sc q8h -GI ppx: protonix 40 mg PO daily -Diet: HHD -PT on board Case discussed with Dr. Kvng Yo DO, PGY-1 <Ady Hair H - Last Filed: 07/24/18 11:39> Objective - Vital Signs/Intake and Output Vital Signs (last 24 hours): Temp Pulse Resp BP Pulse Ox 98.5 F 63 20 103/65 95 07/24/18 08:00 07/24/18 08:00 07/24/18 08:00 07/24/18 08:00 07/24/18 08:00 Intake and Output: 07/24/18 07/24/18 06:59 18:59 Intake Total 500 Balance 500 - Medications Medications: Current Medications Albuterol/Ipratropium (Duoneb 3 Mg/0.5 Mg (3 Ml) Ud) 3 ml INH RQ4 PRN PRN Reason: Shortness of Breath Last Admin: 07/21/18 12:45 Dose: 3 ml Aspirin (Aspirin Chewable) 81 mg PO DAILY [facility] Last Admin: 07/23/18 09:58 Dose: Not Given Finasteride (Proscar) 5 mg PO DAILY [facility] Last Admin: 07/23/18 09:59 Dose: Not Given Heparin Sodium (Porcine) (Heparin) 5,000 units SC Q8 [facility] Last Admin: 07/23/18 21:46 Dose: Not Given Metoprolol Tartrate (Lopressor) 50 mg PO DAILY [facility] Last Admin: 07/23/18 09:32 Dose: 50 mg Pantoprazole Sodium (Protonix Ec Tab) 40 mg PO DAILY [facility] Last Admin: 07/23/18 09:31 Dose: 40 mg Polyethylene Glycol (Miralax) 17 gm PO DAILY PRN PRN Reason: Constipation Rosuvastatin Calcium (Crestor) 5 mg PO HS [facility] Last Admin: 07/23/18 21:43 Dose: 5 mg Tamsulosin HCl (Flomax) 0.4 mg PO DAILY [facility] Last Admin: 07/23/18 09:59 Dose: Not Given Zinc Sulfate (Zinc Sulfate 220 Mg Cap) 220 mg PO DAILY [facility] Last Admin: 07/23/18 09:32 Dose: 220 mg - Labs Labs: 07/24/18 07:09 07/24/18 07:09 PT 13.8 SECONDS (9.7-12.2) H 07/22/18 07:26 INR 1.3 07/22/18 07:26 APTT 31 SECONDS (21-34) 07/22/18 07:26 Attending/Attestation - Attestation I have personally seen and examined this patient.: Yes I have fully participated in the care of the patient.: Yes I have reviewed all pertinent clinical information, including history, physical exam and plan: Yes Notes (Text): 07/24/18 11:37 Medical attending: Patient was at a test today and I will try to return later to see him with the medical residents Reviewed the above notes and previous documenation. He is status post th oracentisis with 950 cc removal on 07/21 There is also pending AFB studies as he had a + quanterferon gold, this being said there is a real possibility the patient does have an underlying maliginacy given the CT scan results The patient is pending biopy sometime later this afternoon Ady Hair
[2018-07-24 07:26] LABS: BASO # 0.1 K/uL (0.0-0.2); BASO % 2.1 % (0.0-2.0); EOS # 0.9 K/uL (0.0-0.7); HEMOGLOBIN 11.6 g/dL (12.0-18.0); MEAN CELL VOLUME 80.3 fL (80.0-94.0); MEAN CORPUSCULAR HGB CONC 33.6 g/dL (33.0-37.0); MEAN PLATELET VOLUME 7.1 fL (7.2-11.7); MONO # 0.6 K/uL (0.0-0.8); MONO % 10.6 % (0.0-10.0); NEUT # 3.2 K/uL (1.8-7.0); NEUT % 54.3 % (50.0-75.0); RBC 4.31 Mil/uL (4.40-5.90); RED CELL DISTRIBUTION WIDTH 17.3 % (11.5-14.5); WHITE BLOOD COUNT 5.8 K/uL (4.8-10.8)
[2018-07-24 07:41] LABS: ALB/GLOB RATIO 0.9 (1.0-2.1); ALBUMIN 3.3 g/dL (3.5-5.0); ALT/SGPT 92 U/L (21-72); AST/SGOT 57 U/L (17-59); BLOOD UREA NITROGEN 14 mg/dL (9-20); CALCIUM 9.1 mg/dl (8.6-10.4); GFR NON-AFRICAN AMERICAN > 60
[2018-07-24] MEDS: Pantoprazole 40 mg EC Tab PO SCH (12:24)
[2018-07-24] MEDS ORDERED: Midazolam 2 MG/2 ML VIAL ONE (12:31)
[2018-07-24] MEDS ORDERED: Propofol 10 mg/ml Inj (20 ML) ONE (12:31)
[2018-07-24] MEDS ORDERED: Rocuronium 10 mg/ml (5 ml) ONE (12:32)
--- NOTE | 2018-07-24 12:43 | CP.PCM.PN ---
Subjective - Date & Time of Evaluation Date of Evaluation: 07/24/18 Time of Evaluation: 07:00 - Subjective Subjective: s/p laparoscopic liver /omental BX Objective - Vital Signs/Intake and Output Vital Signs (last 24 hours): Temp Pulse Resp BP Pulse Ox 98.5 F 63 20 103/65 95 07/24/18 08:00 07/24/18 08:00 07/24/18 08:00 07/24/18 08:00 07/24/18 08:00 Intake and Output: 07/24/18 07/24/18 06:59 18:59 Intake Total 500 Balance 500 - Medications Medications: Current Medications Albuterol/Ipratropium (Duoneb 3 Mg/0.5 Mg (3 Ml) Ud) 3 ml INH RQ4 PRN PRN Reason: Shortness of Breath Last Admin: 07/21/18 12:45 Dose: 3 ml Aspirin (Aspirin Chewable) 81 mg PO DAILY [facility] Last Admin: 07/24/18 12:24 Dose: Not Given Finasteride (Proscar) 5 mg PO DAILY [facility] Last Admin: 07/24/18 12:24 Dose: Not Given Heparin Sodium (Porcine) (Heparin) 5,000 units SC Q8 [facility] Last Admin: 07/23/18 21:46 Dose: Not Given Metoprolol Tartrate (Lopressor) 50 mg PO DAILY [facility] Last Admin: 07/24/18 11:00 Dose: 50 mg Pantoprazole Sodium (Protonix Ec Tab) 40 mg PO DAILY [facility] Last Admin: 07/24/18 12:24 Dose: Not Given Polyethylene Glycol (Miralax) 17 gm PO DAILY PRN PRN Reason: Constipation Rosuvastatin Calcium (Crestor) 5 mg PO HS [facility] Last Admin: 07/23/18 21:43 Dose: 5 mg Tamsulosin HCl (Flomax) 0.4 mg PO DAILY [facility] Last Admin: 07/24/18 12:24 Dose: Not Given Zinc Sulfate (Zinc Sulfate 220 Mg Cap) 220 mg PO DAILY [facility] Last Admin: 07/24/18 12:24 Dose: Not Given - Labs Labs: 07/24/18 07:09 07/24/18 07:09 PT 13.8 SECONDS (9.7-12.2) H 07/22/18 07:26 INR 1.3 07/22/18 07:26 APTT 31 SECONDS (21-34) 07/22/18 07:26 - Constitutional Appears: Non-toxic, Cachectic, Chronically Ill - Head Exam Head Exam: ATRAUMATIC, NORMAL INSPECTION, NORMOCEPHALIC - Eye Exam Eye Exam: EOMI, Normal appearance, PERRL Pupil Exam: NORMAL ACCOMODATION, PERRL - ENT Exam ENT Exam: Mucous Membranes Moist, Normal Exam - Neck Exam Neck Exam: Full ROM, Normal Inspection. absent: Lymphadenopathy - Respiratory Exam Respiratory Exam: Clear to Ausculation Bilateral, NORMAL BREATHING PATTERN - Cardiovascular Exam Cardiovascular Exam: REGULAR RHYTHM, +S1, +S2. absent: Murmur - GI/Abdominal Exam GI & Abdominal Exam: Distended, Soft, Tenderness - Rectal Exam Rectal Exam: Deferred - Exam Exam: NORMAL INSPECTION - Extremities Exam Extremities Exam: Full ROM, Normal Capillary Refill, Normal Inspection. absent: Joint Swelling, Pedal Edema - Back Exam Back Exam: NORMAL INSPECTION - Neurological Exam Neurological Exam: Alert, Awake, CN II-XII Intact, Normal Gait, Oriented x3 - Psychiatric Exam Psychiatric exam: Normal Affect, Normal Mood - Skin Skin Exam: Dry, Intact, Normal Color, Warm Assessment and Plan (1) Anemia Status: Acute (2) Generalized weakness Status: Acute - Assessment and Plan (Free Text) Assessment: r/o malignancy vs TB
[2018-07-24] MEDS ORDERED: ceFAZolin 1 gm in NS 1 GM/100 ML BAG IVPB ONE (12:47)
[2018-07-24] MEDS ORDERED: Bupivacaine 0.25% 20 ML INJ IJ ONE (12:48)
[2018-07-24] MEDS ORDERED: ePHEDrine 50 mg/ml Inj ONE (12:50)
[2018-07-24] MEDS ORDERED: HYDROmorphone 0.5 mg/0.5 ml ISec IVP PRN (13:40)
--- NOTE | 2018-07-24 13:41 | PCM.SURG1 ---
Surgeon's Initial Post Op Note - Surgeon's Notes Surgeon: Dr. Morales Editorial Director: PGY2, Funetes PGY1 Type of Anesthesia: General Endo Pre-Operative Diagnosis: Abdominal Adenopathy Operative Findings: Multiple diffuse peritoneal lesions. trace ascities Post-Operative Diagnosis: As above Operation Performed: 1. Diagonstic Laparoscopy. 2. Peritoneal Biopsies, including liver and omentum Specimen/Specimens Removed: 1. Peritoneal Biopsies. 2. Abdominal fluid for cytology and culture Estimated Blood Loss: EBL {In ML}: 4 Blood Products Given: N/A Drains Used: No Drains Post-Op Condition: Good Date of Surgery/Procedure: 07/24/18 Time of Surgery/Procedure: 13:42
--- NOTE | 2018-07-24 18:07 | RAD ---
Date of service: 07/24/2018 HISTORY: s/p thoracentesis Relevant interventional procedure(s): 07/21/2018. Ultrasound-directed right thoracentesis with removal of 0.95 L of fluid from the right pleural space COMPARISON: No prior. FINDINGS: LUNGS: Atelectasis at the lung bases. PLEURA: No visible pneumothorax. CARDIOVASCULAR: No atherosclerotic calcification present No radiographic findings to suggest acute or significant cardiovascular disease. OSSEOUS STRUCTURES: No significant abnormalities. VISUALIZED UPPER ABDOMEN: Normal. OTHER FINDINGS: None. IMPRESSION: No significant interval change compared to the prior examination(s).
--- NOTE | 2018-07-24 21:48 | CP.PCM.PN ---
Subjective - Date & Time of Evaluation Date of Evaluation: 07/24/18 Time of Evaluation: 20:00 - Subjective Subjective: No complaints. s/p laparoscopy with biopsy. Objective - Vital Signs/Intake and Output Vital Signs (last 24 hours): Temp Pulse Resp BP Pulse Ox 98.1 F 66 20 106/67 96 07/24/18 16:00 07/24/18 16:00 07/24/18 16:00 07/24/18 16:00 07/24/18 16:00 Intake and Output: 07/24/18 07/25/18 18:59 06:59 Intake Total 1000 Balance 1000 - Medications Medications: Current Medications Albuterol/Ipratropium (Duoneb 3 Mg/0.5 Mg (3 Ml) Ud) 3 ml INH RQ4 PRN PRN Reason: Shortness of Breath Last Admin: 07/21/18 12:45 Dose: 3 ml Aspirin (Aspirin Chewable) 81 mg PO DAILY [facility] Last Admin: 07/24/18 12:24 Dose: Not Given Finasteride (Proscar) 5 mg PO DAILY [facility] Last Admin: 07/24/18 12:24 Dose: Not Given Heparin Sodium (Porcine) (Heparin) 5,000 units SC Q8 [facility] Last Admin: 07/23/18 21:46 Dose: Not Given Metoprolol Tartrate (Lopressor) 50 mg PO DAILY [facility] Last Admin: 07/24/18 11:00 Dose: 50 mg Pantoprazole Sodium (Protonix Ec Tab) 40 mg PO DAILY [facility] Last Admin: 07/24/18 12:24 Dose: Not Given Polyethylene Glycol (Miralax) 17 gm PO DAILY PRN PRN Reason: Constipation Rosuvastatin Calcium (Crestor) 5 mg PO HS [facility] Last Admin: 07/24/18 21:18 Dose: 5 mg Tamsulosin HCl (Flomax) 0.4 mg PO DAILY [facility] Last Admin: 07/24/18 12:24 Dose: Not Given Zinc Sulfate (Zinc Sulfate 220 Mg Cap) 220 mg PO DAILY [facility] Last Admin: 07/24/18 12:24 Dose: Not Given - Labs Labs: 07/24/18 07:09 07/24/18 07:09 PT 13.8 SECONDS (9.7-12.2) H 07/22/18 07:26 INR 1.3 07/22/18 07:26 APTT 31 SECONDS (21-34) 07/22/18 07:26 - Head Exam Head Exam: ATRAUMATIC - Eye Exam Eye Exam: Normal appearance - ENT Exam ENT Exam: Mucous Membranes Dry - Respiratory Exam Respiratory Exam: NORMAL BREATHING PATTERN - Cardiovascular Exam Cardiovascular Exam: +S1, +S2 - GI/Abdominal Exam GI & Abdominal Exam: Normal Bowel Sounds Assessment and Plan (1) Multiple lesions of metastatic malignancy Assessment & Plan: f/u biopsy path Status: Acute (2) Anemia Assessment & Plan: chronic disease Status: Acute
--- NOTE | 2018-07-25 02:57 | OP ---
PROCEDURE DATE: 07/24/2018 PREOPERATIVE DIAGNOSIS: Abdominal adenopathy. POSTOPERATIVE DIAGNOSIS: Abdominal adenopathy. PROCEDURES: 1. Diagnostic laparoscopy. 2. Peritoneal biopsies including liver and omentum. SURGEON: Daniel Morales MD ASSISTANTS: Ubaldo Martin, PGY-2 and , PGY-1 ANESTHESIA: General. ANESTHESIOLOGIST: Wilder Pfeiffer MD ESTIMATED BLOOD LOSS: 4 mL. SPECIMENS: 1. Peritoneal biopsies. 2. Abdominal ascites for culture and cytology. INDICATIONS FOR SURGERY: This is a 62-year-old male with a past medical history significant for hypertension, CVA, history of tuberculosis, psoriasis who was recently six months ago. The patient was found to have some weakness of muscle strength in his extremities. The patient continued to have a dry cough. During the hospital workup, the patient underwent a CT scan, which showed abdominal adenopathy and surgery was consulted for requirement of biopsy. Consent was obtained. All risks and benefits were explained to the patient and the patient agreed. DESCRIPTION OF PROCEDURE: The patient was brought in to the operating suite, placed in supine position. General anesthesia was induced. Endotracheal tube was placed and placement confirmed with end-tidal CO2. The patient was then prepped and draped in the usual sterile fashion. A time-out was taken confirming the correct patient and procedure and everyone in the room agreed. An infraumbilical incision, 5-mm port was made. Local anesthetic 1% lidocaine was used to infiltrate the subcutaneous tissue. The layers were dissected down and abdomen was entered via the Veress needle technique. The fascia was elevated and the Veress needle was inserted. Proper position was confirmed by the aspiration and passing of saline meniscus test. Subsequently, a 5-mm trocar was placed under direct visualization using the Visiport technique. Upon entering into the abdomen, the abdomen was inspected and there were no injuries noted through the initial trochar placement. Opening pressure was noted to be 2 mmHg and was subsequently insufflated to 15 mmHg. Upon inspection of the abdomen, multiple peritoneal lesions throughout the entire abdomen were located, but not specifically limited to the falciform ligament, the diaphragm bilaterally, and the liver, the omentum. There was an adhesion located in the right upper quadrant and the inspection down towards the pelvis was noted to have trace ascitic fluid. At this time in the left upper quadrant, a 5-mm port was placed under direct visualization. No injuries to the initial trocar placement were noted. Subsequently, biopsies were taken along the falciform ligament, omentum, and liver bed. All hemostasis was appropriately achieved. Attention was taken to the right upper quadrant and the gutter. The ascitic fluid was aspirated and sent off for cytology and culture including aerobe, anaerobe, and AFB. Afterwards, the left upper quadrant 5-mm port was removed under direct visualization. No bleeding was noted at this time. Abdomen was reinspected. All hemostasis was appropriately achieved from the biopsy sites. Laparoscope was removed through the 5-mm umbilical port. Abdomen was safely collapsed and the trocar was removed. The skin incisions were closed with 4-0 Monocryl and Steri-Strips with a sterile dressing placed on top. All counts were correct at the end of the case. The patient was then extubated and taken to the postanesthesia care unit in stable condition. Dr. Morales was present and participated in all aspects of this case. Ubaldo Martin DO Daniel Morales M.D.
--- NOTE | 2018-07-25 07:20 | CP.PCM.PN ---
<Bandar Yo - Last Filed: 07/25/18 13:20> Subjective - Date & Time of Evaluation Date of Evaluation: 07/25/18 Time of Evaluation: 07:19 - Subjective Subjective: PGY-1 Medicine Progress Note for Dr. Hair Patient seen and examined at bedside this AM s/p diagnostic lap with biopsy POD1, in no acute distress. No overnight events reported. Patient is tolerating PO diet well, no nausea or vomiting reported. Denies fevers/chills, chest pain, palpitations, sob, productive cough, hemoptysis. Awaiting finalized sputum samples and biopsy results. Objective - Vital Signs/Intake and Output Vital Signs (last 24 hours): Temp Pulse Resp BP Pulse Ox 98.9 F 62 20 100/62 95 07/25/18 00:00 07/25/18 00:00 07/25/18 00:00 07/25/18 00:00 07/25/18 00:00 Intake and Output: 07/25/18 07/25/18 06:59 18:59 Intake Total 1000 Balance 1000 - Medications Medications: Current Medications Albuterol/Ipratropium (Duoneb 3 Mg/0.5 Mg (3 Ml) Ud) 3 ml INH RQ4 PRN PRN Reason: Shortness of Breath Last Admin: 07/21/18 12:45 Dose: 3 ml Aspirin (Aspirin Chewable) 81 mg PO DAILY [facility] Last Admin: 07/24/18 12:24 Dose: Not Given Finasteride (Proscar) 5 mg PO DAILY [facility] Last Admin: 07/24/18 12:24 Dose: Not Given Heparin Sodium (Porcine) (Heparin) 5,000 units SC Q8 [facility] Last Admin: 07/25/18 05:47 Dose: 5,000 units Metoprolol Tartrate (Lopressor) 50 mg PO DAILY [facility] Last Admin: 07/24/18 11:00 Dose: 50 mg Pantoprazole Sodium (Protonix Ec Tab) 40 mg PO DAILY [facility] Last Admin: 07/24/18 12:24 Dose: Not Given Polyethylene Glycol (Miralax) 17 gm PO DAILY PRN PRN Reason: Constipation Rosuvastatin Calcium (Crestor) 5 mg PO HS [facility] Last Admin: 07/24/18 21:18 Dose: 5 mg Tamsulosin HCl (Flomax) 0.4 mg PO DAILY [facility] Last Admin: 07/24/18 12:24 Dose: Not Given Zinc Sulfate (Zinc Sulfate 220 Mg Cap) 220 mg PO DAILY [facility] Last Admin: 07/24/18 12:24 Dose: Not Given - Labs Labs: 07/24/18 07:09 07/24/18 07:09 PT 13.8 SECONDS (9.7-12.2) H 07/22/18 07:26 INR 1.3 07/22/18 07:26 APTT 31 SECONDS (21-34) 07/22/18 07:26 - Constitutional Appears: Non-toxic, No Acute Distress - Head Exam Head Exam: ATRAUMATIC, NORMAL INSPECTION, NORMOCEPHALIC - Eye Exam Eye Exam: EOMI, Normal appearance. absent: Scleral icterus Pupil Exam: NORMAL ACCOMODATION - ENT Exam ENT Exam: Mucous Membranes Moist, Normal Exam - Neck Exam Neck Exam: Full ROM, Normal Inspection. absent: Tenderness - Respiratory Exam Respiratory Exam: Clear to Ausculation Bilateral, NORMAL BREATHING PATTERN. absent: Accessory Muscle Use, Respiratory Distress - Cardiovascular Exam Cardiovascular Exam: REGULAR RHYTHM, +S1, +S2 - GI/Abdominal Exam GI & Abdominal Exam: Soft, Normal Bowel Sounds. absent: Distended, Firm, Gua rding, Rigid, Tenderness, Rebound - Extremities Exam Extremities Exam: Full ROM, Normal Capillary Refill, Normal Inspection. absent: Calf Tenderness, Pedal Edema - Back Exam Back Exam: NORMAL INSPECTION - Neurological Exam Neurological Exam: Alert, Awake, Normal Gait, Oriented x3 - Skin Skin Exam: Dry, Intact, Normal Color, Warm Assessment and Plan - Assessment and Plan (Free Text) Assessment: 62 year old male with PMHx of HTN, HLD, T2DM, asthma, BPH, recent PNA presenting to ED with generalized weakness, dry cough with associated sob x 4 months. Unintentional weight loss within the last 3 months, b/l pleural effusions noted on CT chest with multiple mets of unknown origin. R-sided thoracentesis done 07/21. Fluid with significantly elevated RBCs and lymphocytes. Quantiferon gold positive- patient placed on isolation pending 3 AFB sputums. Also awaiting results of biopsies obtained from samples s/p diagnostic lap. Plan: Pleural effusions, bilaterally -mycoplasma IgM negative, IgG positive -urine legionella negative -influenza negative -Urine culture negative -Blood Culture x 2 negative -quantiferon positive -AFB sputum preliminary # 1 and 2 are negative -f/u AFB # 3 -f/u finalized cultures -CT chest report (06/06/18): prominent b/l pleural effusions, R>L, subsegmental atelectasis at b/l lung bases, focal calcified plaque involving L coronary artery and thoracic aorta. Fatty changes of the liver. Heterogenous attenuation and enhancement of thyroid gland. -CTA of the chest w/ contrast report (06/06/18): no evidence of PE. -CXR on admission: asymmetric elevation of R hemidiaphragm, unknown chronicity -CT chest on admission: Small to moderate R pleural effusion, trace L pleural effusion both with associated consolidations. Patchy infiltrate at R lung base may represent superimposed infection -Abdominal u/s: no evidence of portal vein thrombosis. Heterogenous liver. Echogenic foci noted in central portion of spleen. -IR recs (Dr. Uriarte) appreciated -s/p R thoracentesis (07/21), 950 cc zoe colored fluid drained -RBC 35,711 -WBC 4661 -Neutro 10 -Lympho 86 -Johnson 1 -Eosino 3 -Anaerobe Cx no growth -Pulmonology (Dr. Conner) recs appreciated -duonebs q4 prn Unintentional weight loss Multiple lesions of metastatic malignancy -unintentional weight loss (~10 kg in last 3 months) -decreased appetite -CT chest/abdomen/pelvis: Numerous too small to characterize thyroid nodules. Cluster of nodules in RUL lung up to 6mm. Innumerable tiny splenic hypodens ities. Hepatic steatosis. Questional presence of serosal implant anterior to L hepatic lobe. Evidence of omental mets. Stomach is nondistended but thick-walled and edematous. Small to moderate pelvic free fluid. Mediastinal/prevascular and mesenteric adenopathy. -Heme/Onc (Dr. Brown) recs appreciated -f/u EGD for lesions; if negative would recommend IR biopsy of most accessible lesion -GI recs (Dr. Medrano) appreciated -EGD report (07/19): Z line irregular, 38 cm from the incisors. Biopsied. LA Grade C esophagitis. Submucosal nodule found in esophagus. Gastritis, biopsied. Congested duodenal mucosa, biopsed. Multiple duodenal ulcers, biopsed. -Protonix 40 mg PO daily -No further planned GI intervention at this time, will sign off case. Patient will benefit from additional outpatient evaluation and elective follow up of esophageal SM lesion -IR (Dr. Uriarte) recs appreciated -Surgery (Dr. Bright) recs appreciated -s/p diagnostic laparatomy with biopsy POD 1 -f/u path report Suspected TB -pt originally from [place], weight loss, cough, recent Humira injections -Quantiferon gold positive -Airborne isolation -quantiferon positive -AFB sputum preliminary # 1 and 2 are negative -f/u AFB # 3 -f/u finalized cultures -ID recs (Barbara) appreciated Anemia of chronic disease - Hgb normal on admission--> 11.7 - FOBT negative x2 - Iron low/normal 49, TIBC low (210), %sat wnl, ferritin wnl - B12, folate wnl - Retic count 1 Transaminitis, resolved -AST/ALT normalized (07/25) -Abx d'c'd -Hepatitis panel negative -Avoid hepatotoxic agents -GI consulted (Mitchell) Hx of BPH -CT abdomen/pelvis: Heterogenous enlarged prostate gland containing calcification -PSA wnl -tamsulosin 0.4 mg PO daily -finasteride 5 mg PO daily Impaired glucose tolerance -not on any home meds -A1C 5.6 Hx of HTN -Lopressor 50 mg PO daily -ASA 81 mg PO daily Hx of HLD -Crestor 10 mg PO HS PPx, Diet, Disposition -DVT ppx: scds, heparin 5000 units sc q8h -GI ppx: protonix 40 mg PO daily -Diet: HHD -PT on board Case discussed with Dr. Laxmi Yo DO, PGY-1 <Ady Hair H - Last Filed: 07/25/18 13:41> Objective - Vital Signs/Intake and Output Vital Signs (last 24 hours): Temp Pulse Resp BP Pulse Ox 98.1 F 62 20 100/61 95 07/25/18 08:07 07/25/18 08:07 07/25/18 08:07 07/25/18 08:07 07/25/18 08:07 Intake and Output: 07/25/18 07/25/18 06:59 18:59 Intake Total 1000 240 Balance 1000 240 - Medications Medications: Current Medications Albuterol/Ipratropium (Duoneb 3 Mg/0.5 Mg (3 Ml) Ud) 3 ml INH RQ4 PRN PRN Reason: Shortness of Breath Last Admin: 07/21/18 12:45 Dose: 3 ml Aspirin (Aspirin Chewable) 81 mg PO DAILY [facility] Last Admin: 07/25/18 10:03 Dose: 81 mg Finasteride (Proscar) 5 mg PO DAILY [facility] Last Admin: 07/25/18 10:03 Dose: 5 mg Heparin Sodium (Porcine) (Heparin) 5,000 units SC Q8 [facility] Last Admin: 07/25/18 05:47 Dose: 5,000 units Metoprolol Tartrate (Lopressor) 50 mg PO DAILY [facility] Last Admin: 07/25/18 10:03 Dose: 50 mg Pantoprazole Sodium (Protonix Ec Tab) 40 mg PO DAILY [facility] Last Admin: 07/25/18 10:03 Dose: 40 mg Polyethylene Glycol (Miralax) 17 gm PO DAILY PRN PRN Reason: Constipation Rosuvastatin Calcium (Crestor) 5 mg PO HS [facility] Last Admin: 07/24/18 21:18 Dose: 5 mg Tamsulosin HCl (Flomax) 0.4 mg PO DAILY [facility] Last Admin: 07/25/18 10:03 Dose: 0.4 mg Zinc Sulfate (Zinc Sulfate 220 Mg Cap) 220 mg PO DAILY [facility] Last Admin: 07/25/18 10:03 Dose: 220 mg - Labs Labs: 07/25/18 07:04 07/25/18 07:04 PT 13.8 SECONDS (9.7-12.2) H 07/22/18 07:26 INR 1.3 07/22/18 07:26 APTT 31 SECONDS (21-34) 07/22/18 07:26 Attending/Attestation - Attestation I have personally seen and examined this patient.: Yes I have fully participated in the care of the patient.: Yes I have reviewed all pertinent clinical information, including history, physical exam and plan: Yes Notes (Text): 07/25/18 13:37 Medical attending: Patient was seen and examined by me. Agree with the above note by the resident The patient's AFB stain returned and x 2 negative. Also there was the peritoneal fluid that is so far negative as well Patient denied pain at this time. Reported that his breathing was also stable as well. We reviewed the CXRAY from yesterday At this time we continue to wait for more of the studies to return including the biopsies that he had done yesterday. Ady Hair
[2018-07-25 07:28] LABS: BASO # 0.1 K/uL (0.0-0.2); EOS # 0.5 K/uL (0.0-0.7); EOS % 9.7 % (0.0-4.0); HEMOGLOBIN 11.7 g/dL (12.0-18.0); LYMPH # 1.1 K/uL (1.0-4.3); LYMPH % 19.4 % (20.0-40.0); MEAN CELL VOLUME 80.4 fL (80.0-94.0); MEAN CORPUSCULAR HEMOGLOBIN 26.9 pg (27.0-31.0); MEAN CORPUSCULAR HGB CONC 33.5 g/dL (33.0-37.0); MEAN PLATELET VOLUME 7.1 fL (7.2-11.7); MONO # 0.6 K/uL (0.0-0.8); NEUT # 3.3 K/uL (1.8-7.0); NEUT % 58.9 % (50.0-75.0); NRBC % 0.1 % (0.0-2.0); RBC 4.35 Mil/uL (4.40-5.90); RED CELL DISTRIBUTION WIDTH 17.3 % (11.5-14.5); WHITE BLOOD COUNT 5.6 K/uL (4.8-10.8)
[2018-07-25 07:58] LABS: ALB/GLOB RATIO 0.9 (1.0-2.1); ALBUMIN 3.2 g/dL (3.5-5.0); ALT/SGPT 61 U/L (21-72); AST/SGOT 38 U/L (17-59); BLOOD UREA NITROGEN 13 mg/dL (9-20); GFR NON-AFRICAN AMERICAN > 60
[2018-07-25] MEDS: Pantoprazole 40 mg EC Tab PO SCH (10:03)
--- NOTE | 2018-07-25 10:54 | CP.PCM.PN ---
<Ubaldo Martin - Last Filed: 07/25/18 10:51> Subjective - Date & Time of Evaluation Date of Evaluation: 07/25/18 Time of Evaluation: 10:52 - Subjective Subjective: Surgery- Dr. Cooney Patient seen and examined at bedside. s/p diagnostic lap w/ biopsies pod#1. Patient tolerating regular diet. Dressings C/D/I. No new complaints at this time. Denies fevers, chills, chest pain, shortness of breath. Objective - Vital Signs/Intake and Output Vital Signs (last 24 hours): Temp Pulse Resp BP Pulse Ox 98.1 F 62 20 100/61 95 07/25/18 08:07 07/25/18 08:07 07/25/18 08:07 07/25/18 08:07 07/25/18 08:07 Intake and Output: 07/25/18 07/25/18 06:59 18:59 Intake Total 1000 240 Balance 1000 240 - Medications Medications: Current Medications Albuterol/Ipratropium (Duoneb 3 Mg/0.5 Mg (3 Ml) Ud) 3 ml INH RQ4 PRN PRN Reason: Shortness of Breath Last Admin: 07/21/18 12:45 Dose: 3 ml Aspirin (Aspirin Chewable) 81 mg PO DAILY [facility] Last Admin: 07/25/18 10:03 Dose: 81 mg Finasteride (Proscar) 5 mg PO DAILY [facility] Last Admin: 07/25/18 10:03 Dose: 5 mg Heparin Sodium (Porcine) (Heparin) 5,000 units SC Q8 [facility] Last Admin: 07/25/18 05:47 Dose: 5,000 units Metoprolol Tartrate (Lopressor) 50 mg PO DAILY [facility] Last Admin: 07/25/18 10:03 Dose: 50 mg Pantoprazole Sodium (Protonix Ec Tab) 40 mg PO DAILY [facility] Last Admin: 07/25/18 10:03 Dose: 40 mg Polyethylene Glycol (Miralax) 17 gm PO DAILY PRN PRN Reason: Constipation Rosuvastatin Calcium (Crestor) 5 mg PO HS [facility] Last Admin: 07/24/18 21:18 Dose: 5 mg Tamsulosin HCl (Flomax) 0.4 mg PO DAILY [facility] Last Admin: 07/25/18 10:03 Dose: 0.4 mg Zinc Sulfate (Zinc Sulfate 220 Mg Cap) 220 mg PO DAILY [facility] Last Admin: 07/25/18 10:03 Dose: 220 mg - Labs Labs: 07/25/18 07:04 07/25/18 07:04 PT 13.8 SECONDS (9.7-12.2) H 07/22/18 07:26 INR 1.3 07/22/18 07:26 APTT 31 SECONDS (21-34) 07/22/18 07:26 - Constitutional Appears: Non-toxic, No Acute Distress - Head Exam Head Exam: ATRAUMATIC - Eye Exam Eye Exam: EOMI. absent: Scleral icterus - ENT Exam ENT Exam: Mucous Membranes Moist - Respiratory Exam Respiratory Exam: NORMAL BREATHING PATTERN. absent: Accessory Muscle Use, Respiratory Distress - Cardiovascular Exam Cardiovascular Exam: REGULAR RHYTHM. absent: Bradycardia, Tachycardia - GI/Abdominal Exam GI & Abdominal Exam: Soft, Tenderness (mild incisional tenderness). absent: Distended, Firm, Guarding, Rigid - Neurological Exam Neurological Exam: Alert, Awake, Oriented x3 - Psychiatric Exam Psychiatric exam: Normal Affect - Skin Skin Exam: Intact, Warm Assessment and Plan - Assessment and Plan (Free Text) Assessment: 62M s/p diagnostic laparoscopy w/ peritoneal biopsies POD#1 Plan: - diet as tolerated - keep dressing in place till 4/; then allowed to shower - follow up in clinic in 1-2 weeks - f/u path - please re-consult as needed PGY2 <Daniel Ward - Last Filed: 07/25/18 11:04> Objective - Vital Signs/Intake and Output Vital Signs (last 24 hours): Temp Pulse Resp BP Pulse Ox 98.1 F 62 20 100/61 95 07/25/18 08:07 07/25/18 08:07 07/25/18 08:07 07/25/18 08:07 07/25/18 08:07 Intake and Output: 07/25/18 07/25/18 06:59 18:59 Intake Total 1000 240 Balance 1000 240 - Medications Medications: Current Medications Albuterol/Ipratropium (Duoneb 3 Mg/0.5 Mg (3 Ml) Ud) 3 ml INH RQ4 PRN PRN Reason: Shortness of Breath Last Admin: 07/21/18 12:45 Dose: 3 ml Aspirin (Aspirin Chewable) 81 mg PO DAILY [facility] Last Admin: 07/25/18 10:03 Dose: 81 mg Finasteride (Proscar) 5 mg PO DAILY [facility] Last Admin: 07/25/18 10:03 Dose: 5 mg Heparin Sodium (Porcine) (Heparin) 5,000 units SC Q8 [facility] Last Admin: 07/25/18 05:47 Dose: 5,000 units Metoprolol Tartrate (Lopressor) 50 mg PO DAILY [facility] Last Admin: 07/25/18 10:03 Dose: 50 mg Pantoprazole Sodium (Protonix Ec Tab) 40 mg PO DAILY [facility] Last Admin: 07/25/18 10:03 Dose: 40 mg Polyethylene Glycol (Miralax) 17 gm PO DAILY PRN PRN Reason: Constipation Rosuvastatin Calcium (Crestor) 5 mg PO HS [facility] Last Admin: 07/24/18 21:18 Dose: 5 mg Tamsulosin HCl (Flomax) 0.4 mg PO DAILY [facility] Last Admin: 07/25/18 10:03 Dose: 0.4 mg Zinc Sulfate (Zinc Sulfate 220 Mg Cap) 220 mg PO DAILY [facility] Last Admin: 07/25/18 10:03 Dose: 220 mg - Labs Labs: 07/25/18 07:04 07/25/18 07:04 PT 13.8 SECONDS (9.7-12.2) H 07/22/18 07:26 INR 1.3 07/22/18 07:26 APTT 31 SECONDS (21-34) 07/22/18 07:26 Assessment and Plan - Assessment and Plan (Free Text) Plan: All medical record entries made by the resident were at my direction. I have reviewed the chart and agree that the record accurately reflects my personal performance of the history, physical exam, and medical decision making for this patient.
--- NOTE | 2018-07-25 22:03 | CP.PCM.PN ---
Subjective - Date & Time of Evaluation Date of Evaluation: 07/25/18 Time of Evaluation: 08:00 - Subjective Subjective: s/p diagnostic lap w/ biopsies pod#1. Patient tolerating regular diet. Dressings C/D/I. Objective - Vital Signs/Intake and Output Vital Signs (last 24 hours): Temp Pulse Resp BP Pulse Ox 98.1 F 68 20 104/68 96 07/25/18 16:00 07/25/18 16:00 07/25/18 16:00 07/25/18 16:00 07/25/18 16:00 Intake and Output: 07/25/18 07/26/18 18:59 06:59 Intake Total 240 Balance 240 - Medications Medications: Current Medications Albuterol/Ipratropium (Duoneb 3 Mg/0.5 Mg (3 Ml) Ud) 3 ml INH RQ4 PRN PRN Reason: Shortness of Breath Last Admin: 07/21/18 12:45 Dose: 3 ml Aspirin (Aspirin Chewable) 81 mg PO DAILY [facility] Last Admin: 07/25/18 10:03 Dose: 81 mg Finasteride (Proscar) 5 mg PO DAILY [facility] Last Admin: 07/25/18 10:03 Dose: 5 mg Heparin Sodium (Porcine) (Heparin) 5,000 units SC Q12 [facility] Last Admin: 07/25/18 21:52 Dose: 5,000 units Metoprolol Tartrate (Lopressor) 50 mg PO DAILY [facility] Last Admin: 07/25/18 10:03 Dose: 50 mg Pantoprazole Sodium (Protonix Ec Tab) 40 mg PO DAILY [facility] Last Admin: 07/25/18 10:03 Dose: 40 mg Polyethylene Glycol (Miralax) 17 gm PO DAILY PRN PRN Reason: Constipation Rosuvastatin Calcium (Crestor) 5 mg PO HS [facility] Last Admin: 07/25/18 21:52 Dose: 5 mg Tamsulosin HCl (Flomax) 0.4 mg PO DAILY [facility] Last Admin: 07/25/18 10:03 Dose: 0.4 mg Zinc Sulfate (Zinc Sulfate 220 Mg Cap) 220 mg PO DAILY [facility] Last Admin: 07/25/18 10:03 Dose: 220 mg - Labs Labs: 07/25/18 07:04 07/25/18 07:04 PT 13.8 SECONDS (9.7-12.2) H 07/22/18 07:26 INR 1.3 07/22/18 07:26 APTT 31 SECONDS (21-34) 07/22/18 07:26 - Constitutional Appears: No Acute Distress, Cachectic, Chronically Ill - Head Exam Head Exam: ATRAUMATIC, NORMAL INSPECTION, NORMOCEPHALIC - Eye Exam Eye Exam: EOMI, Normal appearance, PERRL Pupil Exam: NORMAL ACCOMODATION, PERRL - ENT Exam ENT Exam: Mucous Membranes Moist, Normal Exam - Neck Exam Neck Exam: Full ROM, Normal Inspection. absent: Lymphadenopathy - Respiratory Exam Respiratory Exam: Clear to Ausculation Bilateral, NORMAL BREATHING PATTERN - Cardiovascular Exam Cardiovascular Exam: REGULAR RHYTHM, +S1, +S2. absent: Murmur - GI/Abdominal Exam GI & Abdominal Exam: Soft, Normal Bowel Sounds. absent: Tenderness - Rectal Exam Rectal Exam: Deferred - Exam Exam: NORMAL INSPECTION - Extremities Exam Extremities Exam: Full ROM, Normal Capillary Refill, Normal Inspection. absent: Joint Swelling, Pedal Edema - Back Exam Back Exam: NORMAL INSPECTION - Neurological Exam Neurological Exam: Alert, Awake, CN II-XII Intact, Normal Gait, Oriented x3 - Psychiatric Exam Psychiatric exam: Normal Affect, Normal Mood - Skin Skin Exam: Dry, Intact, Normal Color, Warm Assessment and Plan (1) Anemia Status: Acute (2) Generalized weakness Status: Acute - Assessment and Plan (Free Text) Assessment: s/p diagnostic lap w/ biopsies pod#1. r/o TB r/o Lymphoma
--- NOTE | 2018-07-25 23:14 | CARD ---
APPROVED REPORT Date of service: 07/24/2018 EXAM: Two-dimensional and M-mode echocardiogram with Doppler and color Doppler. Other Information Quality : GoodRhythm : INDICATION Dyspnea Pleural Effusion RISK FACTORS Hypertension Hyperlipidemia Diabetes 2D DIMENSIONS IVSd0.9 (0.7-1.1cm)LVDd4.3 (3.9-5.9cm) PWd0.8 (0.7-1.1cm)LA Dlkglj23 (18-58mL) LVDs2.8 (2.5-4.0cm)FS (%) 33.9 % LVEF (%)63.2 (>50%)LVEF ([place]'s)65.39 % IVC0.00 cm M-Mode DIMENSIONS Left Atrium (MM)3.89 (2.5-4.0cm)IVSd0.97 (0.7-1.1cm) Aortic Root3.35 (2.2-3.7cm)LVDd5.01 (4.0-5.6cm) Aortic Cusp Exc.2.04 (1.5-2.0cm)PWd0.73 (0.7-1.1cm) FS (%) 43 %LVDs2.85 (2.0-3.8cm) LVEF (%)70 (>50%) Mitral Valve MV E Lblqyrpd78.1cm/sMV A Qcshjtmw01.9cm/sE/A ratio1.2 TDI Lateral E' Peak V11.13cm/sMedial E' Peak V8.03cm/sE/Lateral E'6.2 E/Medial E'8.6 Tricuspid Valve TR Peak Lzlmqudh583co/sTR Peak Gr.[id number] <Conclusion> Left ventricle: thickness: normal; size: normal; overall ejection fraction: 65%: diastolic filling pressures: normal Mitral valve: annulus: normal: leaflets: normal: excursion: normal; no significant trans-mitral gradient: no significant incompetence: left atrium: normal Aortic valve: leaflets: normal: excursion: normal; no significant trans-aortic gradient: No significant incompetence: aortic root: normal Right sided Structures: Pulmonary valve: normal; no significant incompetence; Tricuspid valve: normal; no significant incompetence: Intra-cardiac hemodynamics: pulmonary systolic pressures: 33 mmHg; central venous pressures: normal No pericardial effusion
--- NOTE | 2018-07-25 23:58 | CP.PCM.PN ---
Subjective - Date & Time of Evaluation Date of Evaluation: 07/25/18 Time of Evaluation: 17:00 - Subjective Subjective: No complaints. Objective - Vital Signs/Intake and Output Vital Signs (last 24 hours): Temp Pulse Resp BP Pulse Ox 98.1 F 68 20 104/68 96 07/25/18 16:00 07/25/18 16:00 07/25/18 16:00 07/25/18 16:00 07/25/18 16:00 Intake and Output: 07/25/18 07/26/18 18:59 06:59 Intake Total 240 300 Balance 240 300 - Medications Medications: Current Medications Albuterol/Ipratropium (Duoneb 3 Mg/0.5 Mg (3 Ml) Ud) 3 ml INH RQ4 PRN PRN Reason: Shortness of Breath Last Admin: 07/21/18 12:45 Dose: 3 ml Aspirin (Aspirin Chewable) 81 mg PO DAILY [facility] Last Admin: 07/25/18 10:03 Dose: 81 mg Finasteride (Proscar) 5 mg PO DAILY [facility] Last Admin: 07/25/18 10:03 Dose: 5 mg Heparin Sodium (Porcine) (Heparin) 5,000 units SC Q12 [facility] Last Admin: 07/25/18 21:52 Dose: 5,000 units Metoprolol Tartrate (Lopressor) 50 mg PO DAILY [facility] Last Admin: 07/25/18 10:03 Dose: 50 mg Pantoprazole Sodium (Protonix Ec Tab) 40 mg PO DAILY [facility] Last Admin: 07/25/18 10:03 Dose: 40 mg Polyethylene Glycol (Miralax) 17 gm PO DAILY PRN PRN Reason: Constipation Rosuvastatin Calcium (Crestor) 5 mg PO HS [facility] Last Admin: 07/25/18 21:52 Dose: 5 mg Tamsulosin HCl (Flomax) 0.4 mg PO DAILY [facility] Last Admin: 07/25/18 10:03 Dose: 0.4 mg Zinc Sulfate (Zinc Sulfate 220 Mg Cap) 220 mg PO DAILY [facility] Last Admin: 07/25/18 10:03 Dose: 220 mg - Labs Labs: 07/25/18 07:04 07/25/18 07:04 PT 13.8 SECONDS (9.7-12.2) H 07/22/18 07:26 INR 1.3 07/22/18 07:26 APTT 31 SECONDS (21-34) 07/22/18 07:26 - Head Exam Head Exam: ATRAUMATIC - Eye Exam Eye Exam: Normal appearance - ENT Exam ENT Exam: Mucous Membranes Dry - Respiratory Exam Respiratory Exam: NORMAL BREATHING PATTERN - Cardiovascular Exam Cardiovascular Exam: +S1, +S2 - GI/Abdominal Exam GI & Abdominal Exam: Normal Bowel Sounds Assessment and Plan (1) Multiple lesions of metastatic malignancy Assessment & Plan: f/u biopy path Status: Acute (2) Anemia Assessment & Plan: chronic disease Status: Acute
[2018-07-26 06:45] LABS: TOTAL PROTEIN PLEURAL FLUID 5.7 g/dL
--- NOTE | 2018-07-26 06:50 | CP.PCM.PN ---
<Bandar Yo - Last Filed: 07/26/18 13:11> Subjective - Date & Time of Evaluation Date of Evaluation: 07/26/18 Time of Evaluation: 06:50 - Subjective Subjective: PGY-1 Medicine Progress Note for Dr. Hair Patient seen and examined at bedside this AM POD#2 s/p diagnostic lap w/ biopsy, in no acute distress. No overnight events reported, no acute somatic complaints. Patient is tolerating PO diet well. Denies decreased appetite, fevers/chills, sob, abdominal pain, n/v/d/c. Biopsy report of the peritoneal lesion: fragments of fibroconnective tissue showing necrotizing granulomas. Rare Acid Fast Bacilli noted. Gram stain negative for fungal infection. Awaiting 3rd sputum sample, will follow up with ID for further recs. Objective - Vital Signs/Intake and Output Vital Signs (last 24 hours): Temp Pulse Resp BP Pulse Ox 98.5 F 63 20 104/63 97 07/26/18 00:00 07/26/18 00:00 07/26/18 00:00 07/26/18 00:00 07/26/18 00:00 Intake and Output: 07/25/18 07/26/18 18:59 06:59 Intake Total 240 300 Balance 240 300 - Medications Medications: Current Medications Albuterol/Ipratropium (Duoneb 3 Mg/0.5 Mg (3 Ml) Ud) 3 ml INH RQ4 PRN PRN Reason: Shortness of Breath Last Admin: 07/21/18 12:45 Dose: 3 ml Aspirin (Aspirin Chewable) 81 mg PO DAILY [facility] Last Admin: 07/25/18 10:03 Dose: 81 mg Finasteride (Proscar) 5 mg PO DAILY [facility] Last Admin: 07/25/18 10:03 Dose: 5 mg Heparin Sodium (Porcine) (Heparin) 5,000 units SC Q12 [facility] Last Admin: 07/25/18 21:52 Dose: 5,000 units Metoprolol Tartrate (Lopressor) 50 mg PO DAILY [facility] Last Admin: 07/25/18 10:03 Dose: 50 mg Pantoprazole Sodium (Protonix Ec Tab) 40 mg PO DAILY [facility] Last Admin: 07/25/18 10:03 Dose: 40 mg Polyethylene Glycol (Miralax) 17 gm PO DAILY PRN PRN Reason: Constipation Rosuvastatin Calcium (Crestor) 5 mg PO HS [facility] Last Admin: 07/25/18 21:52 Dose: 5 mg Tamsulosin HCl (Flomax) 0.4 mg PO DAILY [facility] Last Admin: 07/25/18 10:03 Dose: 0.4 mg Zinc Sulfate (Zinc Sulfate 220 Mg Cap) 220 mg PO DAILY [facility] Last Admin: 07/25/18 10:03 Dose: 220 mg - Labs Labs: 07/25/18 07:04 07/25/18 07:04 PT 13.8 SECONDS (9.7-12.2) H 07/22/18 07:26 INR 1.3 07/22/18 07:26 APTT 31 SECONDS (21-34) 07/22/18 07:26 - Constitutional Appears: Non-toxic, No Acute Distress - Head Exam Head Exam: ATRAUMATIC, NORMAL INSPECTION, NORMOCEPHALIC - Eye Exam Eye Exam: EOMI, Normal appearance Pupil Exam: NORMAL ACCOMODATION - ENT Exam ENT Exam: Mucous Membranes Moist, Normal Exam - Neck Exam Neck Exam: Full ROM, Normal Inspection - Respiratory Exam Respiratory Exam: Clear to Ausculation Bilateral, NORMAL BREATHING PATTERN. absent: Accessory Muscle Use, Rales, Rhonchi, Wheezes, Respiratory Distress, Stridor - Cardiovascular Exam Cardiovascular Exam: REGULAR RHYTHM, +S1, +S2 - GI/Abdominal Exam GI & Abdominal Exam: Soft, Normal Bowel Sounds. absent: Distended, Firm, Guarding, Tenderness, Rebound - Extremities Exam Extremities Exam: Full ROM, Normal Capillary Refill, Normal Inspection. absent: Calf Tenderness, Pedal Edema - Back Exam Back Exam: NORMAL INSPECTION - Neurological Exam Neurological Exam: Alert, Awake, Oriented x3 - Skin Skin Exam: Dry, Intact, Normal Color, Warm Assessment and Plan - Assessment and Plan (Free Text) Assessment: 62 year old male with PMHx of HTN, HLD, T2DM, asthma, BPH, recent PNA presenting to ED with generalized weakness, dry cough with associated sob x 4 months. Unintentional weight loss within the last 3 months, b/l pleural effusions noted on CT chest with multiple mets of unknown origin. R-sided thoracentesis done 07/21. Fluid with significantly elevated RBCs and lymphocytes. Quantiferon gold positive. AFB sputum # 1 and 2 negative prelim. Awaiting 3rd sputum. Biopsy report noting rare AFB growth. Plan: Pleural effusions, bilaterally -mycoplasma IgM negative, IgG positive -urine legionella negative -influenza negative -Urine culture negative -Blood Culture x 2 negative -quantiferon positive -AFB sputum preliminary # 1 and 2 are negative -f/u AFB # 3 -f/u finalized cultures -CT chest report (06/06/18): prominent b/l pleural effusions, R>L, subsegmental atelectasis at b/l lung bases, focal calcified plaque involving L coronary artery and thoracic aorta. Fatty changes of the liver. Heterogenous attenuation and enhancement of thyroid gland. -CTA of the chest w/ contrast report (06/06/18): no evidence of PE. -CXR on admission: asymmetric elevation of R hemidiaphragm, unknown chronicity -CT chest on admission: Small to moderate R pleural effusion, trace L pleural effusion both with associated consolidations. Patchy infiltrate at R lung base may represent superimposed infection -Abdominal u/s: no evidence of portal vein thrombosis. Heterogenous liver. Echogenic foci noted in central portion of spleen. -IR recs (Dr. Uriarte) appreciated -s/p R thoracentesis (07/21), 950 cc zoe colored fluid drained -RBC 35,711 -WBC 4661 -Neutro 10 -Lympho 86 -[place] 1 -[place] 3 -Anaerobe Cx no growth -Pulmonology (Dr. Conner) recs appreciated -duonebs q4 prn Unintentional weight loss Multiple lesions of metastatic malignancy -unintentional weight loss (~10 kg in last 3 months) -decreased appetite -CT chest/abdomen/pelvis: Numerous too small to characterize thyroid nodules. Cluster of nodules in RUL lung up to 6mm. Innumerable tiny splenic hypod ensities. Hepatic steatosis. Questional presence of serosal implant anterior to L hepatic lobe. Evidence of omental mets. Stomach is nondistended but thick- walled and edematous. Small to moderate pelvic free fluid. Mediastinal/prevascular and mesenteric adenopathy. -Heme/Onc (Dr. Brown) recs appreciated -f/u EGD for lesions; if negative would recommend IR biopsy of most accessible lesion -GI recs (Dr. Medrano) appreciated -EGD report (07/19): Z line irregular, 38 cm from the incisors. Biopsied. LA Grade C esophagitis. Submucosal nodule found in esophagus. Gastritis, biopsied. Congested duodenal mucosa, biopsed. Multiple duodenal ulcers, biopsed. -Protonix 40 mg PO daily -No further planned GI intervention at this time, will sign off case. Patient will benefit from additional outpatient evaluation and elective follow up of esophageal SM lesion -IR (Dr. Uriarte) recs appreciated -Surgery (Dr. Bright) recs appreciated -s/p diagnostic laparatomy with biopsy POD #2 -Biopsy report, peritoneal lesion: fragments of fibroconnective tissue showing necrotizing granulomas. Rare Acid Fast Bacilli noted. 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 -pt originally from [place], weight loss, cough, recent Humira injections -Quantiferon gold positive -Airborne isolation -quantiferon positive -AFB sputum preliminary # 1 and 2 are negative -f/u AFB # 3 -f/u finalized cultures -see Peritoneal lesion Biopsy results above -f/u further ID recs (Barbara) Anemia of chronic disease - Hgb normal on admission--> 11.7 - FOBT negative x2 - Iron low/normal 49, TIBC low (210), %sat wnl, ferritin wnl - B12, folate wnl - Retic count 1 Transaminitis, resolved -AST/ALT normalized -Hepatitis panel negative -Avoid hepatotoxic agents -GI consulted (Mitchell) Hx of BPH -CT abdomen/pelvis: Heterogenous enlarged prostate gland containing calcification -PSA wnl -tamsulosin 0.4 mg PO daily -finasteride 5 mg PO daily Impaired glucose tolerance -not on any home meds -A1C 5.6 Hx of HTN -Lopressor 50 mg PO daily -ASA 81 mg PO daily Hx of HLD -Crestor 10 mg PO HS PPx, Diet, Disposition -DVT ppx: scds, heparin 5000 units sc q8h -GI ppx: protonix 40 mg PO daily -Diet: HHD -PT on board Case discussed with Dr. Laxmi Yo DO, PGY-1 <Ady Hair H - Last Filed: 07/26/18 14:29> Objective - Vital Signs/Intake and Output Vital Signs (last 24 hours): Temp Pulse Resp BP Pulse Ox 98 F 72 20 110/71 96 07/26/18 07:51 07/26/18 07:51 07/26/18 07:51 07/26/18 07:51 07/26/18 07:51 Intake and Output: 07/26/18 07/26/18 06:59 18:59 Intake Total 300 240 Balance 300 240 - Medications Medications: Current Medications Albuterol/Ipratropium (Duoneb 3 Mg/0.5 Mg (3 Ml) Ud) 3 ml INH RQ4 PRN PRN Reason: Shortness of Breath Last Admin: 07/21/18 12:45 Dose: 3 ml Aspirin (Aspirin Chewable) 81 mg PO DAILY [facility] Last Admin: 07/26/18 10:00 Dose: 81 mg Finasteride (Proscar) 5 mg PO DAILY [facility] Last Admin: 07/26/18 09:59 Dose: 5 mg Heparin Sodium (Porcine) (Heparin) 5,000 units SC Q12 [facility] Last Admin: 07/26/18 10:01 Dose: 5,000 units Metoprolol Tartrate (Lopressor) 50 mg PO DAILY [facility] Last Admin: 07/26/18 09:59 Dose: 50 mg Pantoprazole Sodium (Protonix Ec Tab) 40 mg PO DAILY [facility] Last Admin: 07/26/18 09:59 Dose: 40 mg Polyethylene Glycol (Miralax) 17 gm PO DAILY PRN PRN Reason: Constipation Rosuvastatin Calcium (Crestor) 5 mg PO HS [facility] Last Admin: 07/25/18 21:52 Dose: 5 mg Tamsulosin HCl (Flomax) 0.4 mg PO DAILY [facility] Last Admin: 07/26/18 09:59 Dose: 0.4 mg Zinc Sulfate (Zinc Sulfate 220 Mg Cap) 220 mg PO DAILY [facility] Last Admin: 07/26/18 10:00 Dose: 220 mg - Labs Labs: 07/26/18 06:30 07/26/18 06:30 PT 13.8 SECONDS (9.7-12.2) H 07/22/18 07:26 INR 1.3 07/22/18 07:26 APTT 31 SECONDS (21-34) 07/22/18 07:26 Attending/Attestation - Attestation I have personally seen and examined this patient.: Yes I have fully participated in the care of the patient.: Yes I have reviewed all pertinent clinical information, including history, physical exam and plan: Yes Notes (Text): 07/26/18 14:19 Medical attending: Patient was seen and examined by me, agree with the above note by the resident The patient in the morning was not in any acute distress The patient denied chest or abdominal pain. He took 100% of his breakfast, the tray was empty In the morning we did not have any new results return however about 1 hr ago the biopsy returned showing there is AFB noted. So at this time we will continue with the isolation / droplet precautions As mentioned previously, the patient was placed on Humira for 6 weeks and shortly thereafter noted a lot of problems Ady Hair
[2018-07-26 06:59] LABS: BASO # 0.1 K/uL (0.0-0.2); BASO % 1.4 % (0.0-2.0); EOS # 0.5 K/uL (0.0-0.7); HEMOGLOBIN 11.7 g/dL (12.0-18.0); LYMPH # 1.3 K/uL (1.0-4.3); LYMPH % 25.7 % (20.0-40.0); MEAN CELL VOLUME 82.2 fL (80.0-94.0); MEAN CORPUSCULAR HEMOGLOBIN 27.1 pg (27.0-31.0); MEAN CORPUSCULAR HGB CONC 32.9 g/dL (33.0-37.0); MEAN PLATELET VOLUME 7.2 fL (7.2-11.7); MONO # 0.6 K/uL (0.0-0.8); MONO % 11.7 % (0.0-10.0); NEUT # 2.6 K/uL (1.8-7.0); NEUT % 51.2 % (50.0-75.0); RBC 4.33 Mil/uL (4.40-5.90); RED CELL DISTRIBUTION WIDTH 17.9 % (11.5-14.5)
[2018-07-26 07:23] LABS: ALBUMIN 3.5 g/dL (3.5-5.0); ALT/SGPT 52 U/L (21-72); AST/SGOT 40 U/L (17-59); BLOOD UREA NITROGEN 12 mg/dL (9-20); CALCIUM 9.1 mg/dl (8.6-10.4); GFR NON-AFRICAN AMERICAN > 60
[2018-07-26] MEDS: Pantoprazole 40 mg EC Tab PO SCH (09:59)
--- NOTE | 2018-07-26 17:07 | CP.PCM.PN ---
Subjective - Date & Time of Evaluation Date of Evaluation: 07/26/18 Time of Evaluation: 09:00 - Subjective Subjective: discussed with pathology- necrotizing granulomas with rare AFB on Biopsy would start RIPE Rx need 3 neg smears before d/cing isolation Objective - Vital Signs/Intake and Output Vital Signs (last 24 hours): Temp Pulse Resp BP Pulse Ox 97.9 F 58 L 20 102/64 95 07/26/18 15:00 07/26/18 15:00 07/26/18 15:00 07/26/18 15:00 07/26/18 15:00 Intake and Output: 07/26/18 07/26/18 06:59 18:59 Intake Total 300 240 Balance 300 240 - Medications Medications: Current Medications Albuterol/Ipratropium (Duoneb 3 Mg/0.5 Mg (3 Ml) Ud) 3 ml INH RQ4 PRN PRN Reason: Shortness of Breath Last Admin: 07/21/18 12:45 Dose: 3 ml Aspirin (Aspirin Chewable) 81 mg PO DAILY [facility] Last Admin: 07/26/18 10:00 Dose: 81 mg Finasteride (Proscar) 5 mg PO DAILY [facility] Last Admin: 07/26/18 09:59 Dose: 5 mg Heparin Sodium (Porcine) (Heparin) 5,000 units SC Q12 [facility] Last Admin: 07/26/18 10:01 Dose: 5,000 units Metoprolol Tartrate (Lopressor) 50 mg PO DAILY [facility] Last Admin: 07/26/18 09:59 Dose: 50 mg Pantoprazole Sodium (Protonix Ec Tab) 40 mg PO DAILY [facility] Last Admin: 07/26/18 09:59 Dose: 40 mg Polyethylene Glycol (Miralax) 17 gm PO DAILY PRN PRN Reason: Constipation Rosuvastatin Calcium (Crestor) 5 mg PO HS [facility] Last Admin: 07/25/18 21:52 Dose: 5 mg Tamsulosin HCl (Flomax) 0.4 mg PO DAILY [facility] Last Admin: 07/26/18 09:59 Dose: 0.4 mg Zinc Sulfate (Zinc Sulfate 220 Mg Cap) 220 mg PO DAILY [facility] Last Admin: 07/26/18 10:00 Dose: 220 mg - Labs Labs: 07/26/18 06:30 07/26/18 06:30 PT 13.8 SECONDS (9.7-12.2) H 07/22/18 07:26 INR 1.3 07/22/18 07:26 APTT 31 SECONDS (21-34) 07/22/18 07:26 - Constitutional Appears: No Acute Distress, Chronically Ill - Head Exam Head Exam: ATRAUMATIC, NORMAL INSPECTION, NORMOCEPHALIC - Eye Exam Eye Exam: EOMI, Normal appearance, PERRL Pupil Exam: NORMAL ACCOMODATION, PERRL - ENT Exam ENT Exam: Mucous Membranes Moist, Normal Exam - Neck Exam Neck Exam: Full ROM, Normal Inspection. absent: Lymphadenopathy - Respiratory Exam Respiratory Exam: Clear to Ausculation Bilateral, NORMAL BREATHING PATTERN - Cardiovascular Exam Cardiovascular Exam: REGULAR RHYTHM, +S1, +S2. absent: Murmur - GI/Abdominal Exam GI & Abdominal Exam: Soft, Normal Bowel Sounds. absent: Tenderness - Rectal Exam Rectal Exam: Deferred - Exam Exam: NORMAL INSPECTION - Extremities Exam Extremities Exam: Full ROM, Normal Capillary Refill, Normal Inspection. absent: Joint Swelling, Pedal Edema - Back Exam Back Exam: NORMAL INSPECTION - Neurological Exam Neurological Exam: Alert, Awake, CN II-XII Intact, Normal Gait, Oriented x3 - Psychiatric Exam Psychiatric exam: Normal Affect, Normal Mood - Skin Skin Exam: Dry, Intact, Normal Color, Warm Assessment and Plan (1) Anemia Status: Acute (2) Generalized weakness Status: Acute - Assessment and Plan (Free Text) Assessment: discussed with pathology- necrotizing granulomas with rare AFB on Biopsy would start RIPE Rx need 3 neg smears before d/cing isolation
--- NOTE | 2018-07-26 22:12 | CP.PCM.PN ---
Subjective - Date & Time of Evaluation Date of Evaluation: 07/26/18 Time of Evaluation: 20:00 - Subjective Subjective: No complaints. Biopsy results consistent with disseminated TB - negative for malignancy Objective - Vital Signs/Intake and Output Vital Signs (last 24 hours): Temp Pulse Resp BP Pulse Ox 97.9 F 58 L 20 102/64 95 07/26/18 15:00 07/26/18 15:00 07/26/18 15:00 07/26/18 15:00 07/26/18 15:00 Intake and Output: 07/26/18 07/27/18 18:59 06:59 Intake Total 240 1000 Balance 240 1000 - Medications Medications: Current Medications Albuterol/Ipratropium (Duoneb 3 Mg/0.5 Mg (3 Ml) Ud) 3 ml INH RQ4 PRN PRN Reason: Shortness of Breath Last Admin: 07/21/18 12:45 Dose: 3 ml Aspirin (Aspirin Chewable) 81 mg PO DAILY [facility] Last Admin: 07/26/18 10:00 Dose: 81 mg Ethambutol HCl (Myambutol) 1,200 mg PO Q24H [facility]; Protocol Last Admin: 07/26/18 18:02 Dose: 1,200 mg Finasteride (Proscar) 5 mg PO DAILY [facility] Last Admin: 07/26/18 09:59 Dose: 5 mg Heparin Sodium (Porcine) (Heparin) 5,000 units SC Q12 [facility] Last Admin: 07/26/18 21:32 Dose: 5,000 units Isoniazid (Niazid) 300 mg PO Q24H [facility]; Protocol Last Admin: 07/26/18 18:02 Dose: 300 mg Metoprolol Tartrate (Lopressor) 50 mg PO DAILY [facility] Last Admin: 07/26/18 09:59 Dose: 50 mg Pantoprazole Sodium (Protonix Ec Tab) 40 mg PO DAILY [facility] Last Admin: 07/26/18 09:59 Dose: 40 mg Polyethylene Glycol (Miralax) 17 gm PO DAILY PRN PRN Reason: Constipation Pyrazinamide (Pyrazinamide) 1,000 mg PO DAILY [facility]; Protocol Pyridoxine HCl (Vitamin B6) 100 mg PO DAILY [facility] Rifampin (Rifampin Cap) 600 mg PO DAILY [facility]; Protocol Rosuvastatin Calcium (Crestor) 5 mg PO HS [facility] Last Admin: 07/26/18 21:31 Dose: 5 mg Tamsulosin HCl (Flomax) 0.4 mg PO DAILY [facility] Last Admin: 07/26/18 09:59 Dose: 0.4 mg Zinc Sulfate (Zinc Sulfate 220 Mg Cap) 220 mg PO DAILY [facility] Last Admin: 07/26/18 10:00 Dose: 220 mg - Labs Labs: 07/26/18 06:30 07/26/18 06:30 PT 13.8 SECONDS (9.7-12.2) H 07/22/18 07:26 INR 1.3 07/22/18 07:26 APTT 31 SECONDS (21-34) 07/22/18 07:26 - Head Exam Head Exam: ATRAUMATIC - Eye Exam Eye Exam: Normal appearance - ENT Exam ENT Exam: Mucous Membranes Dry - Respiratory Exam Respiratory Exam: NORMAL BREATHING PATTERN - Cardiovascular Exam Cardiovascular Exam: +S1, +S2 Assessment and Plan (1) Anemia Assessment & Plan: chronic disease Status: Acute
--- NOTE | 2018-07-27 06:57 | CP.PCM.PN ---
<Bandar Yo - Last Filed: 07/27/18 07:37> Subjective - Date & Time of Evaluation Date of Evaluation: 07/27/18 Time of Evaluation: 06:48 - Subjective Subjective: PGY-1 Medicine Progress Note for Dr. Hair Patient seen and examined at bedside this AM POD#3 s/p dx lap with biopsy. Pathology report demonstrates rare AFB, necrotizing granulomas suggestive of disseminated TB. Spoke to patient about findings, need to begin RIPE therapy. Patient to remain on isolation precautions until 3 negative smears are produced. Objective - Vital Signs/Intake and Output Vital Signs (last 24 hours): Temp Pulse Resp BP Pulse Ox 98.6 F 70 20 103/66 94 L 07/27/18 00:00 07/27/18 00:00 07/27/18 00:00 07/27/18 00:00 07/27/18 00:00 Intake and Output: 07/26/18 07/27/18 18:59 06:59 Intake Total 240 1979 Balance 240 1979 - Medications Medications: Current Medications Albuterol/Ipratropium (Duoneb 3 Mg/0.5 Mg (3 Ml) Ud) 3 ml INH RQ4 PRN PRN Reason: Shortness of Breath Last Admin: 07/21/18 12:45 Dose: 3 ml Aspirin (Aspirin Chewable) 81 mg PO DAILY [facility] Last Admin: 07/26/18 10:00 Dose: 81 mg Ethambutol HCl (Myambutol) 1,200 mg PO Q24H [facility]; Protocol Last Admin: 07/26/18 18:02 Dose: 1,200 mg Finasteride (Proscar) 5 mg PO DAILY [facility] Last Admin: 07/26/18 09:59 Dose: 5 mg Heparin Sodium (Porcine) (Heparin) 5,000 units SC Q12 [facility] Last Admin: 07/26/18 21:32 Dose: 5,000 units Isoniazid (Niazid) 300 mg PO Q24H [facility]; Protocol Last Admin: 07/26/18 18:02 Dose: 300 mg Metoprolol Tartrate (Lopressor) 50 mg PO DAILY [facility] Last Admin: 07/26/18 09:59 Dose: 50 mg Pantoprazole Sodium (Protonix Ec Tab) 40 mg PO DAILY [facility] Last Admin: 07/26/18 09:59 Dose: 40 mg Polyethylene Glycol (Miralax) 17 gm PO DAILY PRN PRN Reason: Constipation Pyrazinamide (Pyrazinamide) 1,000 mg PO DAILY [facility]; Protocol Pyridoxine HCl (Vitamin B6) 100 mg PO DAILY [facility] Rifampin (Rifampin Cap) 600 mg PO DAILY [facility]; Protocol Rosuvastatin Calcium (Crestor) 5 mg PO HS [facility] Last Admin: 07/26/18 21:31 Dose: 5 mg Tamsulosin HCl (Flomax) 0.4 mg PO DAILY [facility] Last Admin: 07/26/18 09:59 Dose: 0.4 mg Zinc Sulfate (Zinc Sulfate 220 Mg Cap) 220 mg PO DAILY [facility] Last Admin: 07/26/18 10:00 Dose: 220 mg - Labs Labs: 07/26/18 06:30 07/26/18 06:30 PT 13.8 SECONDS (9.7-12.2) H 07/22/18 07:26 INR 1.3 07/22/18 07:26 APTT 31 SECONDS (21-34) 07/22/18 07:26 - Constitutional Appears: Non-toxic, No Acute Distress - Head Exam Head Exam: ATRAUMATIC, NORMAL INSPECTION, NORMOCEPHALIC - Eye Exam Eye Exam: EOMI, Normal appearance Pupil Exam: NORMAL ACCOMODATION - ENT Exam ENT Exam: Mucous Membranes Moist, Normal Exam - Neck Exam Neck Exam: Full ROM, Normal Inspection. absent: Tenderness - Respiratory Exam Respiratory Exam: NORMAL BREATHING PATTERN. absent: Accessory Muscle Use, R honchi, Wheezes, Respiratory Distress - Cardiovascular Exam Cardiovascular Exam: REGULAR RHYTHM, +S1, +S2 - GI/Abdominal Exam GI & Abdominal Exam: Soft, Normal Bowel Sounds. absent: Distended, Firm, Guarding, Rigid, Tenderness, Rebound - Extremities Exam Extremities Exam: Full ROM, Normal Capillary Refill, Normal Inspection. absent: Calf Tenderness, Pedal Edema - Back Exam Back Exam: NORMAL INSPECTION - Neurological Exam Neurological Exam: Alert, Awake, Oriented x3 - Skin Skin Exam: Dry, Intact, Normal Color, Warm Assessment and Plan - Assessment and Plan (Free Text) Assessment: 62 year old male with PMHx of HTN, HLD, T2DM, asthma, BPH, recent PNA presenting to ED with generalized weakness, dry cough with associated sob x 4 months. Unintentional weight loss within the last 3 months, b/l pleural effusions noted on CT chest with multiple mets of unknown origin. R-sided thoracentesis done 07/21. Fluid with significantly elevated RBCs and lymphocytes. Quantiferon gold positive. Biopsy report suggestive of disseminated TB. Started on RIPE therapy, continue isolation until 3 negative smears. Plan: Disseminated TB -Patient originally from [place] -unintentional weight loss (~10 kg in last 3 months) -decreased appetite -symptoms reportedly started after 6 week course of Humira infusions -quantiferon positive -AFB sputum preliminary # 1-3 negative -f/u finalized cultures -CT chest/abdomen/pelvis: Numerous too small to characterize thyroid nodules. Cluster of nodules in RUL lung up to 6mm. Innumerable tiny splenic hypodensities. Hepatic steatosis. Questional presence of serosal implant anterior to L hepatic lobe. Evidence of omental mets. Stomach is nondistended but thick-walled and edematous. Small to moderate pelvic free fluid. Mediastinal/prevascular and mesenteric adenopathy. -GI recs (Dr. Medrano) appreciated -EGD report (07/19): Z line irregular, 38 cm from the incisors. Biopsied. LA Grade C esophagitis. Submucosal nodule found in esophagus. Gastritis, biopsied. Congested duodenal mucosa, biopsed. Multiple duodenal ulcers, biopsed. -Protonix 40 mg PO daily -No further planned GI intervention at this time, will sign off case. Patient will benefit from additional outpatient evaluation and elective follow up of esophageal SM lesion -Surgery (Dr. Bright) recs appreciated -s/p diagnostic laparatomy with biopsy POD #3 -Biopsy report, peritoneal lesion: fragments of fibroconnective tissue showing necrotizing granulomas. Rare Acid Fast Bacilli noted. Gram stain negative for fungal infection -ID recs (Dr. Jimenez) appreciated -started on RIPE therapy (07/26); continue isolation precautions until 3 negative smears Pleural effusions, bilaterally--improved -mycoplasma IgM negative, IgG positive -urine legionella negative -influenza negative -Urine culture negative -Blood Culture x 2 negative -CT chest report (06/06/18): prominent b/l pleural effusions, R>L, subsegmental atelectasis at b/l lung bases, focal calcified plaque involving L coronary artery and thoracic aorta. Fatty changes of the liver. Heterogenous attenuation and enhancement of thyroid gland. -CTA of the chest w/ contrast report (06/06/18): no evidence of PE. -CXR on admission: asymmetric elevation of R hemidiaphragm, unknown chronicity -CT chest on admission: Small to moderate R pleural effusion, trace L pleural effusion both with associated consolidations. Patchy infiltrate at R lung base may represent superimposed infection -Abdominal u/s: no evidence of portal vein thrombosis. Heterogenous liver. Echogenic foci noted in central portion of spleen. -IR recs (Dr. Uriarte) appreciated -s/p R thoracentesis (07/21), 950 cc zoe colored fluid drained -RBC 35,711 -WBC 4661 -Neutro 10 -Lympho 86 -Mitchell 1 -Eosino 3 -Anaerobe Cx no growth -Pulmonology (Dr. Conner) recs appreciated -duonebs q4 prn Anemia of chronic disease - Hgb normal on admission--> 11.7 - FOBT negative x2 - Iron low/normal 49, TIBC low (210), %sat wnl, ferritin wnl - B12, folate wnl - Retic count 1 Transaminitis, resolved -AST/ALT normalized -Hepatitis panel negative -Avoid hepatotoxic agents -GI consulted (Mitchell) Hx of BPH -CT abdomen/pelvis: Heterogenous enlarged prostate gland containing calcification -PSA wnl -tamsulosin 0.4 mg PO daily -finasteride 5 mg PO daily Impaired glucose tolerance -not on any home meds -A1C 5.6 Hx of HTN -Lopressor 50 mg PO daily -ASA 81 mg PO daily Hx of HLD -Crestor 10 mg PO HS PPx, Diet, Disposition -DVT ppx: scds, heparin 5000 units sc q8h -GI ppx: protonix 40 mg PO daily -Diet: HHD -PT on board -isolation precautions Case discussed with Dr. Laxmi Yo DO, PGY-1 <Ady Hair H - Last Filed: 07/27/18 14:34> Objective - Vital Signs/Intake and Output Vital Signs (last 24 hours): Temp Pulse Resp BP Pulse Ox 98.5 F 65 20 114/72 96 07/27/18 07:41 07/27/18 07:41 07/27/18 07:41 07/27/18 07:41 07/27/18 07:41 Intake and Output: 07/27/18 07/27/18 06:59 18:59 Intake Total 1979 Balance 1979 - Medications Medications: Current Medications Albuterol/Ipratropium (Duoneb 3 Mg/0.5 Mg (3 Ml) Ud) 3 ml INH RQ4 PRN PRN Reason: Shortness of Breath Last Admin: 07/21/18 12:45 Dose: 3 ml Aspirin (Aspirin Chewable) 81 mg PO DAILY [facility] Last Admin: 07/27/18 09:34 Dose: 81 mg Ethambutol HCl (Myambutol) 1,200 mg PO Q24H [facility]; Protocol Last Admin: 07/26/18 18:02 Dose: 1,200 mg Finasteride (Proscar) 5 mg PO DAILY [facility] Last Admin: 07/27/18 09:32 Dose: 5 mg Heparin Sodium (Porcine) (Heparin) 5,000 units SC Q12 [facility] Last Admin: 07/27/18 09:32 Dose: 5,000 units Isoniazid (Niazid) 300 mg PO Q24H [facility]; Protocol Last Admin: 07/26/18 18:02 Dose: 300 mg Metoprolol Tartrate (Lopressor) 50 mg PO DAILY [facility] Last Admin: 07/27/18 09:32 Dose: 50 mg Pantoprazole Sodium (Protonix Ec Tab) 40 mg PO DAILY [facility] Last Admin: 07/27/18 09:32 Dose: 40 mg Polyethylene Glycol (Miralax) 17 gm PO DAILY PRN PRN Reason: Constipation Pyrazinamide (Pyrazinamide) 1,000 mg PO DAILY [facility]; Protocol Last Admin: 07/27/18 09:33 Dose: 1,000 mg Pyridoxine HCl (Vitamin B6) 100 mg PO DAILY [facility] Last Admin: 07/27/18 09:50 Dose: 100 mg Rifampin (Rifampin Cap) 600 mg PO DAILY [facility]; Protocol Last Admin: 07/27/18 09:33 Dose: 600 mg Rosuvastatin Calcium (Crestor) 5 mg PO HS [facility] Last Admin: 07/26/18 21:31 Dose: 5 mg Tamsulosin HCl (Flomax) 0.4 mg PO DAILY [facility] Last Admin: 07/27/18 09:32 Dose: 0.4 mg Zinc Sulfate (Zinc Sulfate 220 Mg Cap) 220 mg PO DAILY [facility] Last Admin: 07/27/18 09:32 Dose: 220 mg - Labs Labs: 07/27/18 06:57 07/27/18 06:57 PT 13.8 SECONDS (9.7-12.2) H 07/22/18 07:26 INR 1.3 07/22/18 07:26 APTT 31 SECONDS (21-34) 07/22/18 07:26 Attending/Attestation - Attestation I have personally seen and examined this patient.: Yes I have fully participated in the care of the patient.: Yes I have reviewed all pertinent clinical information, including history, physical exam and plan: Yes Notes (Text): 07/27/18 14:31 Medical attending: Patient was seen and examined by me. Agree with the above note by the resident The patient was not in any acute distress when we came and saw him. Pending the 3rd sputum AFB stain We discussed with the patient that there was a + AFB in the peritoneal biopsy He was started on TB medications last night Currently eating well, denied shortness of breath, denied nausea, denied vomitting. The areas of the laproscopic insertions look dry and intact and no bleeding and no discharge Ady Hair
[2018-07-27 07:04] LABS: BASO # 0.1 K/uL (0.0-0.2); BASO % 1.9 % (0.0-2.0); EOS # 0.4 K/uL (0.0-0.7); EOS % 7.2 % (0.0-4.0); HEMOGLOBIN 11.1 g/dL (12.0-18.0); LYMPH # 1.2 K/uL (1.0-4.3); LYMPH % 21.1 % (20.0-40.0); MEAN CELL VOLUME 81.5 fL (80.0-94.0); MEAN CORPUSCULAR HGB CONC 33.1 g/dL (33.0-37.0); MEAN PLATELET VOLUME 6.9 fL (7.2-11.7); MONO # 0.8 K/uL (0.0-0.8); MONO % 13.9 % (0.0-10.0); NEUT # 3.1 K/uL (1.8-7.0); NEUT % 55.9 % (50.0-75.0); NRBC % 0.1 % (0.0-2.0); RBC 4.12 Mil/uL (4.40-5.90); RED CELL DISTRIBUTION WIDTH 17.6 % (11.5-14.5); WHITE BLOOD COUNT 5.5 K/uL (4.8-10.8)
[2018-07-27 07:24] LABS: ALBUMIN 3.4 g/dL (3.5-5.0); ALT/SGPT 49 U/L (21-72); AST/SGOT 38 U/L (17-59); BLOOD UREA NITROGEN 16 mg/dL (9-20); GFR NON-AFRICAN AMERICAN > 60
[2018-07-27] MEDS: Pantoprazole 40 mg EC Tab PO SCH (09:32)
[2018-07-27] MEDS: Pyridoxine 100 mg Tab PO SCH (09:50)
--- NOTE | 2018-07-27 18:29 | CP.PCM.PN ---
Subjective - Date & Time of Evaluation Date of Evaluation: 07/27/18 Time of Evaluation: 09:00 - Subjective Subjective: tolerating rx await 3rd neg AFB smear Objective - Vital Signs/Intake and Output Vital Signs (last 24 hours): Temp Pulse Resp BP Pulse Ox 97.9 F 63 20 100/64 96 07/27/18 15:56 07/27/18 15:56 07/27/18 15:56 07/27/18 15:56 07/27/18 15:56 Intake and Output: 07/27/18 07/27/18 06:59 18:59 Intake Total 1979 Balance 1979 - Medications Medications: Current Medications Albuterol/Ipratropium (Duoneb 3 Mg/0.5 Mg (3 Ml) Ud) 3 ml INH RQ4 PRN PRN Reason: Shortness of Breath Last Admin: 07/21/18 12:45 Dose: 3 ml Aspirin (Aspirin Chewable) 81 mg PO DAILY [facility] Last Admin: 07/27/18 09:34 Dose: 81 mg Ethambutol HCl (Myambutol) 1,200 mg PO Q24H [facility]; Protocol Last Admin: 07/27/18 17:23 Dose: 1,200 mg Finasteride (Proscar) 5 mg PO DAILY [facility] Last Admin: 07/27/18 09:32 Dose: 5 mg Heparin Sodium (Porcine) (Heparin) 5,000 units SC Q12 [facility] Last Admin: 07/27/18 09:32 Dose: 5,000 units Isoniazid (Niazid) 300 mg PO Q24H [facility]; Protocol Last Admin: 07/27/18 17:23 Dose: 300 mg Metoprolol Tartrate (Lopressor) 50 mg PO DAILY [facility] Last Admin: 07/27/18 09:32 Dose: 50 mg Pantoprazole Sodium (Protonix Ec Tab) 40 mg PO DAILY [facility] Last Admin: 07/27/18 09:32 Dose: 40 mg Polyethylene Glycol (Miralax) 17 gm PO DAILY PRN PRN Reason: Constipation Pyrazinamide (Pyrazinamide) 1,000 mg PO DAILY [facility]; Protocol Last Admin: 07/27/18 09:33 Dose: 1,000 mg Pyridoxine HCl (Vitamin B6) 100 mg PO DAILY [facility] Last Admin: 07/27/18 09:50 Dose: 100 mg Rifampin (Rifampin Cap) 600 mg PO DAILY [facility]; Protocol Last Admin: 07/27/18 09:33 Dose: 600 mg Rosuvastatin Calcium (Crestor) 5 mg PO HS [facility] Last Admin: 07/26/18 21:31 Dose: 5 mg Tamsulosin HCl (Flomax) 0.4 mg PO DAILY [facility] Last Admin: 07/27/18 09:32 Dose: 0.4 mg Zinc Sulfate (Zinc Sulfate 220 Mg Cap) 220 mg PO DAILY [facility] Last Admin: 07/27/18 09:32 Dose: 220 mg - Labs Labs: 07/27/18 06:57 07/27/18 06:57 PT 13.8 SECONDS (9.7-12.2) H 07/22/18 07:26 INR 1.3 07/22/18 07:26 APTT 31 SECONDS (21-34) 07/22/18 07:26 - Constitutional Appears: Non-toxic - Head Exam Head Exam: NORMOCEPHALIC - Eye Exam Eye Exam: absent: Scleral icterus Pupil Exam: NORMAL ACCOMODATION, PERRL - ENT Exam ENT Exam: Mucous Membranes Dry - Neck Exam Neck Exam: Full ROM, Normal Inspection. absent: Lymphadenopathy - Respiratory Exam Respiratory Exam: Clear to Ausculation Bilateral, NORMAL BREATHING PATTERN - Cardiovascular Exam Cardiovascular Exam: REGULAR RHYTHM, +S1, +S2. absent: Murmur - GI/Abdominal Exam GI & Abdominal Exam: Soft, Normal Bowel Sounds. absent: Tenderness - Rectal Exam Rectal Exam: Deferred - Extremities Exam Extremities Exam: Full ROM, Normal Capillary Refill, Normal Inspection. absent: Joint Swelling, Pedal Edema - Back Exam Back Exam: NORMAL INSPECTION - Neurological Exam Neurological Exam: Alert, Awake, CN II-XII Intact, Normal Gait, Oriented x3 - Psychiatric Exam Psychiatric exam: Normal Affect, Normal Mood - Skin Skin Exam: Dry, Intact, Normal Color, Warm Assessment and Plan (1) Anemia Status: Acute (2) Generalized weakness Status: Acute (3) Disseminated tuberculosis Status: Acute (4) Disseminated tuberculosis Status: Acute - Assessment and Plan (Free Text) Assessment: cont TB meds- may need long course of rx
--- NOTE | 2018-07-28 07:00 | CP.PCM.PN ---
<Bandar Yo - Last Filed: 07/28/18 10:35> Subjective - Date & Time of Evaluation Date of Evaluation: 07/28/18 Time of Evaluation: 07:00 - Subjective Subjective: PGY-1 Medicine Progress Note for Dr. Hair Patient seen and examined at bedside, in no acute distress. No overnight events reported, no acute somatic complaints. Tolerating PO diet well, continuing RIPE treatment. Patient anxious about when he can return home, expressed to him need to collect fresh 3rd sputum sample, as original sample was received but not sent by lab. Objective - Vital Signs/Intake and Output Vital Signs (last 24 hours): Temp Pulse Resp BP Pulse Ox 98 F 62 20 102/60 96 07/28/18 00:00 07/28/18 00:00 07/28/18 00:00 07/28/18 00:00 07/28/18 00:00 Intake and Output: 07/27/18 07/28/18 18:59 06:59 Intake Total 1000 Balance 1000 - Medications Medications: Current Medications Albuterol/Ipratropium (Duoneb 3 Mg/0.5 Mg (3 Ml) Ud) 3 ml INH RQ4 PRN PRN Reason: Shortness of Breath Last Admin: 07/21/18 12:45 Dose: 3 ml Aspirin (Aspirin Chewable) 81 mg PO DAILY [facility] Last Admin: 07/27/18 09:34 Dose: 81 mg Ethambutol HCl (Myambutol) 1,200 mg PO Q24H [facility]; Protocol Last Admin: 07/27/18 17:23 Dose: 1,200 mg Finasteride (Proscar) 5 mg PO DAILY [facility] Last Admin: 07/27/18 09:32 Dose: 5 mg Heparin Sodium (Porcine) (Heparin) 5,000 units SC Q12 [facility] Last Admin: 07/27/18 21:47 Dose: 5,000 units Isoniazid (Niazid) 300 mg PO Q24H [facility]; Protocol Last Admin: 07/27/18 17:23 Dose: 300 mg Metoprolol Tartrate (Lopressor) 50 mg PO DAILY [facility] Last Admin: 07/27/18 09:32 Dose: 50 mg Pantoprazole Sodium (Protonix Ec Tab) 40 mg PO DAILY [facility] Last Admin: 07/27/18 09:32 Dose: 40 mg Polyethylene Glycol (Miralax) 17 gm PO DAILY PRN PRN Reason: Constipation Pyrazinamide (Pyrazinamide) 1,000 mg PO DAILY [facility]; Protocol Last Admin: 07/27/18 09:33 Dose: 1,000 mg Pyridoxine HCl (Vitamin B6) 100 mg PO DAILY [facility] Last Admin: 07/27/18 09:50 Dose: 100 mg Rifampin (Rifampin Cap) 600 mg PO DAILY [facility]; Protocol Last Admin: 07/27/18 09:33 Dose: 600 mg Rosuvastatin Calcium (Crestor) 5 mg PO HS [facility] Last Admin: 07/27/18 21:46 Dose: 5 mg Tamsulosin HCl (Flomax) 0.4 mg PO DAILY [facility] Last Admin: 07/27/18 09:32 Dose: 0.4 mg Zinc Sulfate (Zinc Sulfate 220 Mg Cap) 220 mg PO DAILY [facility] Last Admin: 07/27/18 09:32 Dose: 220 mg - Labs Labs: 07/27/18 06:57 07/27/18 06:57 PT 13.8 SECONDS (9.7-12.2) H 07/22/18 07:26 INR 1.3 07/22/18 07:26 APTT 31 SECONDS (21-34) 07/22/18 07:26 - Constitutional Appears: Non-toxic, No Acute Distress - Head Exam Head Exam: ATRAUMATIC, NORMAL INSPECTION, NORMOCEPHALIC - Eye Exam Eye Exam: EOMI, Normal appearance Pupil Exam: NORMAL ACCOMODATION - ENT Exam ENT Exam: Mucous Membranes Moist, Normal Exam - Neck Exam Neck Exam: Full ROM, Normal Inspection - Respiratory Exam Respiratory Exam: Clear to Ausculation Bilateral, NORMAL BREATHING PATTERN. absent: Accessory Muscle Use, Rhonchi, Wheezes, Respiratory Distress, Stridor - Cardiovascular Exam Cardiovascular Exam: REGULAR RHYTHM, +S1, +S2 - GI/Abdominal Exam GI & Abdominal Exam: Soft, Normal Bowel Sounds. absent: Distended, Firm, Guarding, Rigid, Tenderness, Rebound - Extremities Exam Extremities Exam: Full ROM, Normal Capillary Refill, Normal Inspection. absent: Calf Tenderness, Pedal Edema - Back Exam Back Exam: NORMAL INSPECTION - Neurological Exam Neurological Exam: Alert, Awake, Normal Gait, Oriented x3 - Skin Skin Exam: Dry, Intact, Normal Color, Warm Assessment and Plan - Assessment and Plan (Free Text) Assessment: 62 year old male with PMHx of HTN, HLD, T2DM, asthma, BPH, recent PNA presenting to ED with generalized weakness, dry cough with associated sob x 4 months. Unintentional weight loss within the last 3 months, b/l pleural effusions noted on CT chest with multiple mets of unknown origin. R-sided thoracentesis done 07/21. Fluid with significantly elevated RBCs and lymphocytes. Quantiferon gold positive. Biopsy report suggestive of disseminated TB. Started on RIPE therapy, continue isolation until 3 negative smears. Plan: Disseminated TB -Patient originally from [place] -unintentional weight loss (~10 kg in last 3 months) -decreased appetite -symptoms reportedly started after 6 week course of Humira infusions -quantiferon positive -AFB sputum preliminary # 1-3 negative -f/u finalized cultures -CT chest/abdomen/pelvis: Numerous too small to characterize thyroid nodules. Cluster of nodules in RUL lung up to 6mm. Innumerable tiny splenic hypodensitie s. Hepatic steatosis. Questional presence of serosal implant anterior to L hepatic lobe. Evidence of omental mets. Stomach is nondistended but thick-walled and edematous. Small to moderate pelvic free fluid. Mediastinal/prevascular and mesenteric adenopathy. -GI recs (Dr. Medrano) appreciated -EGD report (07/19): Z line irregular, 38 cm from the incisors. Biopsied. LA Grade C esophagitis. Submucosal nodule found in esophagus. Gastritis, biopsied. Congested duodenal mucosa, biopsed. Multiple duodenal ulcers, biopsed. -Protonix 40 mg PO daily -No further planned GI intervention at this time, will sign off case. Patient will benefit from additional outpatient evaluation and elective follow up of esophageal SM lesion -Surgery (Dr. Bright) recs appreciated -s/p diagnostic laparatomy with biopsy POD #3 -Biopsy report, peritoneal lesion: fragments of fibroconnective tissue milly wing necrotizing granulomas. Rare Acid Fast Bacilli noted. Gram stain negative for fungal infection -ID recs (Dr. Jimenez) appreciated -started on RIPE therapy (07/26); continue isolation precautions until 3 negative smears Pleural effusions, bilaterally--improved -mycoplasma IgM negative, IgG positive -urine legionella negative -influenza negative -Urine culture negative -Blood Culture x 2 negative -CT chest report (06/06/18): prominent b/l pleural effusions, R>L, subsegmental atelectasis at b/l lung bases, focal calcified plaque involving L coronary artery and thoracic aorta. Fatty changes of the liver. Heterogenous attenuation and enhancement of thyroid gland. -CTA of the chest w/ contrast report (06/06/18): no evidence of PE. -CXR on admission: asymmetric elevation of R hemidiaphragm, unknown chronicity -CT chest on admission: Small to moderate R pleural effusion, trace L pleural effusion both with associated consolidations. Patchy infiltrate at R lung base may represent superimposed infection -Abdominal u/s: no evidence of portal vein thrombosis. Heterogenous liver. Echogenic foci noted in central portion of spleen. -IR recs (Dr. Uriarte) appreciated -s/p R thoracentesis (07/21), 950 cc zoe colored fluid drained -RBC 35,711 -WBC 4661 -Neutro 10 -Lympho 86 -[place] 1 -Eosino 3 -Anaerobe Cx no growth -Pulmonology (Dr. Conner) recs appreciated -duonebs q4 prn Anemia of chronic disease - Hgb normal on admission--> 11.7 - FOBT negative x2 - Iron low/normal 49, TIBC low (210), %sat wnl, ferritin wnl - B12, folate wnl - Retic count 1 Transaminitis, resolved -AST/ALT normalized -Hepatitis panel negative -Avoid hepatotoxic agents -GI consulted (Mitchell) Hx of BPH -CT abdomen/pelvis: Heterogenous enlarged prostate gland containing calcification -PSA wnl -tamsulosin 0.4 mg PO daily -finasteride 5 mg PO daily Impaired glucose tolerance -not on any home meds -A1C 5.6 Hx of HTN -Lopressor 50 mg PO daily -ASA 81 mg PO daily Hx of HLD -Crestor 10 mg PO HS PPx, Diet, Disposition -DVT ppx: scds, heparin 5000 units sc q8h -GI ppx: protonix 40 mg PO daily -Diet: HHD -PT on board -isolation precautions Case discussed with Dr. Laxmi Yo DO, PGY-1 <Ady Hair - Last Filed: 07/28/18 12:43> Objective - Vital Signs/Intake and Output Vital Signs (last 24 hours): Temp Pulse Resp BP Pulse Ox 98.1 F 62 97 H 98/61 L 97 07/28/18 08:08 07/28/18 08:08 07/28/18 08:08 07/28/18 08:08 07/28/18 08:08 Intake and Output: 07/28/18 07/28/18 06:59 18:59 Intake Total 1000 240 Balance 1000 240 - Medications Medications: Current Medications Albuterol/Ipratropium (Duoneb 3 Mg/0.5 Mg (3 Ml) Ud) 3 ml INH RQ4 PRN PRN Reason: Shortness of Breath Last Admin: 07/21/18 12:45 Dose: 3 ml Aspirin (Aspirin Chewable) 81 mg PO DAILY [facility] Last Admin: 07/28/18 09:41 Dose: 81 mg Ethambutol HCl (Myambutol) 1,200 mg PO Q24H [facility]; Protocol Last Admin: 07/27/18 17:23 Dose: 1,200 mg Finasteride (Proscar) 5 mg PO DAILY [facility] Last Admin: 07/28/18 09:40 Dose: 5 mg Heparin Sodium (Porcine) (Heparin) 5,000 units SC Q12 [facility] Last Admin: 07/28/18 09:41 Dose: 5,000 units Isoniazid (Niazid) 300 mg PO Q24H [facility]; Protocol Last Admin: 07/27/18 17:23 Dose: 300 mg Metoprolol Tartrate (Lopressor) 50 mg PO DAILY [facility] Last Admin: 07/28/18 09:44 Dose: 50 mg Pantoprazole Sodium (Protonix Ec Tab) 40 mg PO DAILY [facility] Last Admin: 07/28/18 09:40 Dose: 40 mg Polyethylene Glycol (Miralax) 17 gm PO DAILY PRN PRN Reason: Constipation Pyrazinamide (Pyrazinamide) 1,000 mg PO DAILY [facility]; Protocol Last Admin: 07/28/18 09:41 Dose: 1,000 mg Pyridoxine HCl (Vitamin B6) 100 mg PO DAILY [facility] Last Admin: 07/28/18 09:41 Dose: 100 mg Rifampin (Rifampin Cap) 600 mg PO DAILY [facility]; Protocol Last Admin: 07/28/18 09:41 Dose: 600 mg Rosuvastatin Calcium (Crestor) 5 mg PO HS [facility] Last Admin: 07/27/18 21:46 Dose: 5 mg Tamsulosin HCl (Flomax) 0.4 mg PO DAILY [facility] Last Admin: 07/28/18 09:40 Dose: 0.4 mg Zinc Sulfate (Zinc Sulfate 220 Mg Cap) 220 mg PO DAILY [facility] Last Admin: 07/28/18 09:41 Dose: 220 mg - Labs Labs: 07/28/18 07:03 07/28/18 07:03 PT 13.8 SECONDS (9.7-12.2) H 07/22/18 07:26 INR 1.3 07/22/18 07:26 APTT 31 SECONDS (21-34) 07/22/18 07:26 Attending/Attestation - Attestation I have personally seen and examined this patient.: Yes I have fully participated in the care of the patient.: Yes I have reviewed all pertinent clinical information, including history, physical exam and plan: Yes Notes (Text): 07/28/18 12:40 Medical attending: Patient was seen and examined by me. Agree with the above note by the biomedical scientist At this moment we are waiting for a 3rd sputum AFB stains - as he has only two negative stains and the third one somehow was collected but was then lost. He is eager to go home. He is now on the TB regimen. He had questions about the change in urine color and we explained to him the is the medication. LFTs are stable As mentioned previously the only positive acid fast bacilli is from the peritoneum biopsy that was done. Also as previously mentioned the patient was on a prolonged course of humira. thank you Ady Hair
[2018-07-28 07:27] LABS: BASO # 0.1 K/uL (0.0-0.2); BASO % 1.5 % (0.0-2.0); EOS # 0.3 K/uL (0.0-0.7); EOS % 6.9 % (0.0-4.0); HEMOGLOBIN 11.1 g/dL (12.0-18.0); LYMPH # 0.9 K/uL (1.0-4.3); LYMPH % 21.1 % (20.0-40.0); MEAN CELL VOLUME 81.9 fL (80.0-94.0); MEAN CORPUSCULAR HEMOGLOBIN 27.4 pg (27.0-31.0); MEAN CORPUSCULAR HGB CONC 33.5 g/dL (33.0-37.0); MEAN PLATELET VOLUME 7.3 fL (7.2-11.7); MONO # 0.6 K/uL (0.0-0.8); MONO % 13.8 % (0.0-10.0); NEUT # 2.5 K/uL (1.8-7.0); NEUT % 56.7 % (50.0-75.0); NRBC % 0.1 % (0.0-2.0); RBC 4.04 Mil/uL (4.40-5.90); RED CELL DISTRIBUTION WIDTH 17.9 % (11.5-14.5); WHITE BLOOD COUNT 4.4 K/uL (4.8-10.8)
[2018-07-28 07:45] LABS: ALBUMIN 3.4 g/dL (3.5-5.0); ALT/SGPT 38 U/L (21-72); AST/SGOT 32 U/L (17-59); BLOOD UREA NITROGEN 19 mg/dL (9-20); CALCIUM 8.9 mg/dl (8.6-10.4); GFR NON-AFRICAN AMERICAN > 60
[2018-07-28] MEDS: Pantoprazole 40 mg EC Tab PO SCH (09:40)
[2018-07-28] MEDS: Pyridoxine 100 mg Tab PO SCH (09:41)
--- NOTE | 2018-07-28 15:47 | CP.PCM.PN ---
Subjective - Date & Time of Evaluation Date of Evaluation: 07/28/18 Time of Evaluation: 10:00 - Subjective Subjective: awake alert oriented tolerating RX denies fever or pain Objective - Vital Signs/Intake and Output Vital Signs (last 24 hours): Temp Pulse Resp BP Pulse Ox 98.1 F 62 97 H 98/61 L 97 07/28/18 08:08 07/28/18 08:08 07/28/18 08:08 07/28/18 08:08 07/28/18 08:08 Intake and Output: 07/28/18 07/28/18 06:59 18:59 Intake Total 1000 240 Balance 1000 240 - Medications Medications: Current Medications Albuterol/Ipratropium (Duoneb 3 Mg/0.5 Mg (3 Ml) Ud) 3 ml INH RQ4 PRN PRN Reason: Shortness of Breath Last Admin: 07/21/18 12:45 Dose: 3 ml Aspirin (Aspirin Chewable) 81 mg PO DAILY [facility] Last Admin: 07/28/18 09:41 Dose: 81 mg Ethambutol HCl (Myambutol) 1,200 mg PO Q24H [facility]; Protocol Last Admin: 07/27/18 17:23 Dose: 1,200 mg Finasteride (Proscar) 5 mg PO DAILY [facility] Last Admin: 07/28/18 09:40 Dose: 5 mg Heparin Sodium (Porcine) (Heparin) 5,000 units SC Q12 [facility] Last Admin: 07/28/18 09:41 Dose: 5,000 units Isoniazid (Niazid) 300 mg PO Q24H [facility]; Protocol Last Admin: 07/27/18 17:23 Dose: 300 mg Metoprolol Tartrate (Lopressor) 50 mg PO DAILY [facility] Last Admin: 07/28/18 09:44 Dose: 50 mg Pantoprazole Sodium (Protonix Ec Tab) 40 mg PO DAILY [facility] Last Admin: 07/28/18 09:40 Dose: 40 mg Polyethylene Glycol (Miralax) 17 gm PO DAILY PRN PRN Reason: Constipation Pyrazinamide (Pyrazinamide) 1,000 mg PO DAILY [facility]; Protocol Last Admin: 07/28/18 09:41 Dose: 1,000 mg Pyridoxine HCl (Vitamin B6) 100 mg PO DAILY [facility] Last Admin: 07/28/18 09:41 Dose: 100 mg Rifampin (Rifampin Cap) 600 mg PO DAILY [facility]; Protocol Last Admin: 07/28/18 09:41 Dose: 600 mg Rosuvastatin Calcium (Crestor) 5 mg PO HS [facility] Last Admin: 07/27/18 21:46 Dose: 5 mg Tamsulosin HCl (Flomax) 0.4 mg PO DAILY [facility] Last Admin: 07/28/18 09:40 Dose: 0.4 mg Zinc Sulfate (Zinc Sulfate 220 Mg Cap) 220 mg PO DAILY [facility] Last Admin: 07/28/18 09:41 Dose: 220 mg - Labs Labs: 07/28/18 07:03 07/28/18 07:03 PT 13.8 SECONDS (9.7-12.2) H 07/22/18 07:26 INR 1.3 07/22/18 07:26 APTT 31 SECONDS (21-34) 07/22/18 07:26 - Constitutional Appears: Non-toxic, No Acute Distress, Chronically Ill - Head Exam Head Exam: ATRAUMATIC, NORMAL INSPECTION, NORMOCEPHALIC - Eye Exam Eye Exam: EOMI, Normal appearance, PERRL Pupil Exam: NORMAL ACCOMODATION, PERRL - ENT Exam ENT Exam: Mucous Membranes Moist, Normal Exam - Neck Exam Neck Exam: Full ROM, Normal Inspection. absent: Lymphadenopathy - Respiratory Exam Respiratory Exam: Clear to Ausculation Bilateral, NORMAL BREATHING PATTERN - Cardiovascular Exam Cardiovascular Exam: REGULAR RHYTHM, +S1, +S2. absent: Murmur - GI/Abdominal Exam GI & Abdominal Exam: Soft, Normal Bowel Sounds. absent: Tenderness - Rectal Exam Rectal Exam: Deferred - Exam Exam: NORMAL INSPECTION - Extremities Exam Extremities Exam: Full ROM, Normal Capillary Refill, Normal Inspection. absent: Joint Swelling, Pedal Edema - Back Exam Back Exam: NORMAL INSPECTION - Neurological Exam Neurological Exam: Alert, Awake, CN II-XII Intact, Normal Gait, Oriented x3 - Psychiatric Exam Psychiatric exam: Normal Affect, Normal Mood - Skin Skin Exam: Dry, Intact, Normal Color, Warm Assessment and Plan (1) Anemia Status: Acute (2) Generalized weakness Status: Acute (3) Disseminated tuberculosis Status: Acute (4) Disseminated tuberculosis Status: Acute - Assessment and Plan (Free Text) Assessment: cont RIPE Rx may need 18 mos rx follow up CXR in 6-8 weeks
--- NOTE | 2018-07-29 01:39 | CP.PCM.PN ---
<Kenroy Alfonso - Last Filed: 07/29/18 01:36> Subjective - Date & Time of Evaluation Date of Evaluation: 07/29/18 Time of Evaluation: 01:36 - Subjective Subjective: PGY-1 Medicine Progress Note for Dr. Hair Patient seen and examined at bedside. Has no complaints at this time. Continue to ambulate well around the isolation room. Understands his medical condition and planned course of treatment. Denies fever, chills, chest pain, sob, hemoptysis, abdominal pain, n/v/d, headache, dizziness, numbness tingling. Objective - Vital Signs/Intake and Output Vital Signs (last 24 hours): Temp Pulse Resp BP Pulse Ox 98 F 70 20 115/76 96 07/29/18 00:00 07/29/18 00:00 07/29/18 00:00 07/29/18 00:00 07/29/18 00:00 Intake and Output: 07/28/18 07/29/18 18:59 06:59 Intake Total 240 350 Balance 240 350 - Medications Medications: Current Medications Albuterol/Ipratropium (Duoneb 3 Mg/0.5 Mg (3 Ml) Ud) 3 ml INH RQ4 PRN PRN Reason: Shortness of Breath Last Admin: 07/21/18 12:45 Dose: 3 ml Aspirin (Aspirin Chewable) 81 mg PO DAILY [facility] Last Admin: 07/28/18 09:41 Dose: 81 mg Ethambutol HCl (Myambutol) 1,200 mg PO Q24H [facility]; Protocol Last Admin: 07/28/18 17:28 Dose: 1,200 mg Finasteride (Proscar) 5 mg PO DAILY [facility] Last Admin: 07/28/18 09:40 Dose: 5 mg Isoniazid (Niazid) 300 mg PO Q24H [facility]; Protocol Last Admin: 07/28/18 17:28 Dose: 300 mg Metoprolol Tartrate (Lopressor) 50 mg PO DAILY [facility] Last Admin: 07/28/18 09:44 Dose: 50 mg Pantoprazole Sodium (Protonix Ec Tab) 40 mg PO DAILY [facility] Last Admin: 07/28/18 09:40 Dose: 40 mg Polyethylene Glycol (Miralax) 17 gm PO DAILY PRN PRN Reason: Constipation Pyrazinamide (Pyrazinamide) 1,000 mg PO DAILY [facility]; Protocol Last Admin: 07/28/18 09:41 Dose: 1,000 mg Pyridoxine HCl (Vitamin B6) 100 mg PO DAILY [facility] Last Admin: 07/28/18 09:41 Dose: 100 mg Rifampin (Rifampin Cap) 600 mg PO DAILY [facility]; Protocol Last Admin: 07/28/18 09:41 Dose: 600 mg Rosuvastatin Calcium (Crestor) 5 mg PO HS [facility] Last Admin: 07/28/18 21:39 Dose: 5 mg Tamsulosin HCl (Flomax) 0.4 mg PO DAILY [facility] Last Admin: 07/28/18 09:40 Dose: 0.4 mg Zinc Sulfate (Zinc Sulfate 220 Mg Cap) 220 mg PO DAILY [facility] Last Admin: 07/28/18 09:41 Dose: 220 mg - Labs Labs: 07/28/18 07:03 07/28/18 07:03 PT 13.8 SECONDS (9.7-12.2) H 07/22/18 07:26 INR 1.3 07/22/18 07:26 APTT 31 SECONDS (21-34) 07/22/18 07:26 - Additional Findings Additional findings: - Constitutional Appears: Non-toxic, No Acute Distress - Head Exam Head Exam: ATRAUMATIC, NORMAL INSPECTION, NORMOCEPHALIC - Eye Exam Eye Exam: EOMI, Normal appearance - ENT Exam ENT Exam: Mucous Membranes Moist, Normal Exam - Neck Exam Neck Exam: Full ROM, Normal Inspection - Respiratory Exam Respiratory Exam: Clear to Ausculation Bilateral, NORMAL BREATHING PATTERN. absent: Accessory Muscle Use, Rhonchi, Wheezes, Respiratory Distress, Stridor - Cardiovascular Exam Cardiovascular Exam: REGULAR RHYTHM, +S1, +S2 - GI/Abdominal Exam GI & Abdominal Exam: Soft, Normal Bowel Sounds. absent: Distended, Firm, Guarding, Rigid, Tenderness, Rebound - Extremities Exam Extremities Exam: Full ROM, Normal Capillary Refill, Normal Inspection. absent: Calf Tenderness, Pedal Edema - Back Exam Back Exam: NORMAL INSPECTION - Neurological Exam Neurological Exam: Alert, Awake, Normal Gait, Oriented x3 - Skin Skin Exam: Dry, Intact, Normal Color, Warm Assessment and Plan - Assessment and Plan (Free Text) Assessment: 62 year old male with PMHx of HTN, HLD, T2DM, asthma, BPH, recent PNA presenting to ED with generalized weakness, dry cough with associated sob x 4 months. Unintentional weight loss within the last 3 months, b/l pleural effusions noted on CT chest with multiple mets of unknown origin. R-sided thoracentesis done 07/21. Fluid with significantly elevated RBCs and lymphocytes. Quantiferon gold positive. Biopsy report suggestive of disseminated TB. Started on RIPE therapy, continue isolation until 3 negative smears. Plan: Disseminated TB -Patient originally from [place] -unintentional weight loss (~10 kg in last 3 months) -decreased appetite -symptoms reportedly started after 6 week course of Humira infusions -quantiferon positive -AFB sputum preliminary # 1-3 negative -f/u finalized cultures -CT chest/abdomen/pelvis: Numerous too small to characterize thyroid nodules. Cluster of nodules in RUL lung up to 6mm. Innumerable tiny splenic hypodensities. Hepatic steatosis. Questional presence of serosal implant anterior to L hepatic lobe. Evidence of omental mets. Stomach is nondistended but thick-walled and edematous. Small to moderate pelvic free fluid. Mediastinal/prevascular and mesenteric adenopathy. -GI recs (Dr. Medrano) appreciated -EGD report (07/19): Z line irregular, 38 cm from the incisors. Biopsied. LA Grade C esophagitis. Submucosal nodule found in esophagus. Gastritis, biopsied. Congested duodenal mucosa, biopsed. Multiple duodenal ulcers, biopsed. -Protonix 40 mg PO daily -No further planned GI intervention at this time, will sign off case. Patient will benefit from additional outpatient evaluation and elective follow up of esophageal SM lesion -Surgery (Dr. Bright) recs appreciated -s/p diagnostic laparatomy with biopsy POD #3 -Biopsy report, peritoneal lesion: fragments of fibroconnective tissue showing necrotizing granulomas. Rare Acid Fast Bacilli noted. Gram stain negative for fungal infection -ID recs (Dr. Jimenez) appreciated -started on RIPE therapy (07/26); continue isolation precautions until 3 negative smears Pleural effusions, bilaterally--improved -mycoplasma IgM negative, IgG positive -urine legionella negative -influenza negative -Urine culture negative -Blood Culture x 2 negative -CT chest report (06/06/18): prominent b/l pleural effusions, R>L, subsegmental atelectasis at b/l lung bases, focal calcified plaque involving L coronary artery and thoracic aorta. Fatty changes of the liver. Heterogenous attenuation and enhancement of thyroid gland. -CTA of the chest w/ contrast report (06/06/18): no evidence of PE. -CXR on admission: asymmetric elevation of R hemidiaphragm, unknown chronicity -CT chest on admission: Small to moderate R pleural effusion, trace L pleural effusion both with associated consolidations. Patchy infiltrate at R lung base may represent superimposed infection -Abdominal u/s: no evidence of portal vein thrombosis. Heterogenous liver. Echogenic foci noted in central portion of spleen. -IR recs (Dr. Uriarte) appreciated -s/p R thoracentesis (07/21), 950 cc zoe colored fluid drained -RBC 35,711 -WBC 4661 -Neutro 10 -Lympho 86 -[place] 1 -[place] 3 -Anaerobe Cx no growth -Pulmonology (Dr. Conner) recs appreciated -duonebs q4 prn Anemia of chronic disease - Hgb normal on admission--> 11.7, now stable - FOBT negative x2 - Iron low/normal 49, TIBC low (210), %sat wnl, ferritin wnl - B12, folate wnl - Retic count 1 Transaminitis, resolved -AST/ALT normalized -Hepatitis panel negative -Avoid hepatotoxic agents -GI consulted (Mitchell) Hx of BPH -CT abdomen/pelvis: Heterogenous enlarged prostate gland containing calcification -PSA wnl -tamsulosin 0.4 mg PO daily -finasteride 5 mg PO daily Impaired glucose tolerance -not on any home meds -A1C 5.6 Hx of HTN -Lopressor 50 mg PO daily -ASA 81 mg PO daily Hx of HLD -Crestor 10 mg PO HS PPx, Diet, Disposition -DVT ppx: scds, heparin 5000 units sc q8h -GI ppx: protonix 40 mg PO daily -Diet: HHD -PT on board -isolation precautions <Ady Hair H - Last Filed: 07/29/18 10:21> Objective - Vital Signs/Intake and Output Vital Signs (last 24 hours): Temp Pulse Resp BP Pulse Ox 97.9 F 61 18 108/68 97 07/29/18 08:24 07/29/18 08:24 07/29/18 08:24 07/29/18 08:24 07/29/18 08:24 Intake and Output: 07/29/18 07/29/18 06:59 18:59 Intake Total 350 240 Balance 350 240 - Medications Medications: Current Medications Albuterol/Ipratropium (Duoneb 3 Mg/0.5 Mg (3 Ml) Ud) 3 ml INH RQ4 PRN PRN Reason: Shortness of Breath Last Admin: 07/21/18 12:45 Dose: 3 ml Aspirin (Aspirin Chewable) 81 mg PO DAILY [facility] Last Admin: 07/29/18 09:40 Dose: 81 mg Ethambutol HCl (Myambutol) 1,200 mg PO Q24H [facility]; Protocol Last Admin: 07/28/18 17:28 Dose: 1,200 mg Finasteride (Proscar) 5 mg PO DAILY [facility] Last Admin: 07/29/18 09:39 Dose: 5 mg Isoniazid (Niazid) 300 mg PO Q24H [facility]; Protocol Last Admin: 07/28/18 17:28 Dose: 300 mg Metoprolol Tartrate (Lopressor) 50 mg PO DAILY [facility] Last Admin: 07/29/18 09:38 Dose: 50 mg Pantoprazole Sodium (Protonix Ec Tab) 40 mg PO DAILY [facility] Last Admin: 07/29/18 09:39 Dose: 40 mg Polyethylene Glycol (Miralax) 17 gm PO DAILY PRN PRN Reason: Constipation Pyrazinamide (Pyrazinamide) 1,000 mg PO DAILY [facility]; Protocol Last Admin: 07/29/18 09:39 Dose: 1,000 mg Pyridoxine HCl (Vitamin B6) 100 mg PO DAILY [facility] Last Admin: 07/29/18 09:39 Dose: 100 mg Rifampin (Rifampin Cap) 600 mg PO DAILY [facility]; Protocol Last Admin: 07/29/18 09:39 Dose: 600 mg Rosuvastatin Calcium (Crestor) 5 mg PO HS [facility] Last Admin: 07/28/18 21:39 Dose: 5 mg Tamsulosin HCl (Flomax) 0.4 mg PO DAILY [facility] Last Admin: 07/29/18 09:39 Dose: 0.4 mg Zinc Sulfate (Zinc Sulfate 220 Mg Cap) 220 mg PO DAILY [facility] Last Admin: 07/29/18 09:39 Dose: 220 mg - Labs Labs: 07/29/18 07:04 07/29/18 07:04 PT 13.8 SECONDS (9.7-12.2) H 07/22/18 07:26 INR 1.3 07/22/18 07:26 APTT 31 SECONDS (21-34) 07/22/18 07:26 Attending/Attestation - Attestation I have personally seen and examined this patient.: Yes I have fully participated in the care of the patient.: Yes I have reviewed all pertinent clinical information, including history, physical exam and plan: Yes Notes (Text): 07/29/18 10:18 Medical attending: Patient was seen and examined by me, reviewed the above note by the resident and agree with the above He has had two AFB sputum stains that are negative, we are still pending a 3rd There is one AFB stain from the peritoneum that is negative Currently on the TB medication regimen. As mentioned previously he reports orange urine and we explained this was from the medication His LFTs have been stable at this time He is eager to go. Tolerating diet very well. I explained to him that once the 3rd sputum AFB returns and is ok he could probably go however we would have to wait for case workers to set the patient up with the TB clinic - and he needs to avoid Humira in the future Ady Hair
[2018-07-29 07:41] LABS: ALBUMIN 3.7 g/dL (3.5-5.0); ALT/SGPT 41 U/L (21-72); AST/SGOT 32 U/L (17-59); BLOOD UREA NITROGEN 15 mg/dL (9-20); GFR NON-AFRICAN AMERICAN > 60
[2018-07-29 07:42] LABS: BASO # 0.1 K/uL (0.0-0.2); EOS # 0.3 K/uL (0.0-0.7); EOS % 7.2 % (0.0-4.0); HEMOGLOBIN 11.2 g/dL (12.0-18.0); LYMPH # 1.1 K/uL (1.0-4.3); LYMPH % 26.6 % (20.0-40.0); MEAN CORPUSCULAR HEMOGLOBIN 27.5 pg (27.0-31.0); MEAN CORPUSCULAR HGB CONC 33.9 g/dL (33.0-37.0); MEAN PLATELET VOLUME 7.2 fL (7.2-11.7); MONO # 0.5 K/uL (0.0-0.8); MONO % 12.7 % (0.0-10.0); NEUT # 2.1 K/uL (1.8-7.0); NEUT % 51.5 % (50.0-75.0); NRBC % 0.1 % (0.0-2.0); RBC 4.08 Mil/uL (4.40-5.90); RED CELL DISTRIBUTION WIDTH 18.4 % (11.5-14.5); WHITE BLOOD COUNT 4.2 K/uL (4.8-10.8)
[2018-07-29] MEDS: Pyridoxine 100 mg Tab PO SCH (09:39)
[2018-07-29] MEDS: Pantoprazole 40 mg EC Tab PO SCH (09:39)
--- NOTE | 2018-07-29 14:52 | RAD ---
Date of service: 07/29/2018 HISTORY: Follow up on thoracentesis COMPARISON: Comparison is made with 07/24/2018 TECHNIQUE: 1 view obtained. FINDINGS: LUNGS: Interval improvement in the lungs since the previous exam. PLEURA: No significant pleural effusion identified, no pneumothorax apparent. CARDIOVASCULAR: No aortic atherosclerotic calcification present. Normal cardiac size. No pulmonary vascular congestion. OSSEOUS STRUCTURES: No significant abnormalities. VISUALIZED UPPER ABDOMEN: Normal. OTHER FINDINGS: None. IMPRESSION: No active disease.
[2018-07-29 15:57] VITALS: RESP 20
--- NOTE | 2018-07-29 22:20 | CP.PCM.PN ---
<Kenroy Alfonso - Last Filed: 07/30/18 03:31> Subjective - Date & Time of Evaluation Date of Evaluation: 07/30/18 Time of Evaluation: 03:31 - Subjective Subjective: PGY-1 Medicine Progress Note for Dr. Hair Patient seen and examined at bedside. Has no acute complaints at this time. Understands his medical condition and planned course of treatment. Pt reports he is ready to be discharged home. Denies fever, chills, chest pain, sob, hemoptysis, abdominal pain, n/v/d, headache, dizziness, numbness tingling. Objective - Vital Signs/Intake and Output Vital Signs (last 24 hours): Temp Pulse Resp BP Pulse Ox 97.5 F L 59 L 20 98/52 L 98 07/29/18 15:00 07/29/18 15:00 07/29/18 15:00 07/29/18 15:00 07/29/18 15:00 Intake and Output: 07/29/18 07/30/18 18:59 06:59 Intake Total 240 1000 Balance 240 1000 - Medications Medications: Current Medications Albuterol/Ipratropium (Duoneb 3 Mg/0.5 Mg (3 Ml) Ud) 3 ml INH RQ4 PRN PRN Reason: Shortness of Breath Last Admin: 07/21/18 12:45 Dose: 3 ml Aspirin (Aspirin Chewable) 81 mg PO DAILY [facility] Last Admin: 07/29/18 09:40 Dose: 81 mg Ethambutol HCl (Myambutol) 1,200 mg PO Q24H [facility]; Protocol Last Admin: 07/29/18 16:59 Dose: 1,200 mg Finasteride (Proscar) 5 mg PO DAILY [facility] Last Admin: 07/29/18 09:39 Dose: 5 mg Isoniazid (Niazid) 300 mg PO Q24H [facility]; Protocol Last Admin: 07/29/18 16:59 Dose: 300 mg Metoprolol Tartrate (Lopressor) 50 mg PO DAILY [facility] Last Admin: 07/29/18 09:38 Dose: 50 mg Pantoprazole Sodium (Protonix Ec Tab) 40 mg PO DAILY [facility] Last Admin: 07/29/18 09:39 Dose: 40 mg Polyethylene Glycol (Miralax) 17 gm PO DAILY PRN PRN Reason: Constipation Pyrazinamide (Pyrazinamide) 1,000 mg PO DAILY [facility]; Protocol Last Admin: 07/29/18 09:39 Dose: 1,000 mg Pyridoxine HCl (Vitamin B6) 100 mg PO DAILY [facility] Last Admin: 07/29/18 09:39 Dose: 100 mg Rifampin (Rifampin Cap) 600 mg PO DAILY [facility]; Protocol Last Admin: 07/29/18 09:39 Dose: 600 mg Rosuvastatin Calcium (Crestor) 5 mg PO HS [facility] Last Admin: 07/29/18 21:19 Dose: 5 mg Tamsulosin HCl (Flomax) 0.4 mg PO DAILY [facility] Last Admin: 07/29/18 09:39 Dose: 0.4 mg Zinc Sulfate (Zinc Sulfate 220 Mg Cap) 220 mg PO DAILY [facility] Last Admin: 07/29/18 09:39 Dose: 220 mg - Labs Labs: 07/29/18 07:04 07/29/18 07:04 PT 13.8 SECONDS (9.7-12.2) H 07/22/18 07:26 INR 1.3 07/22/18 07:26 APTT 31 SECONDS (21-34) 07/22/18 07:26 - Additional Findings Additional findings: - Constitutional Appears: Non-toxic, No Acute Distress - Head Exam Head Exam: ATRAUMATIC, NORMAL INSPECTION, NORMOCEPHALIC - Eye Exam Eye Exam: EOMI, Normal appearance - ENT Exam ENT Exam: Mucous Membranes Moist, Normal Exam - Neck Exam Neck Exam: Full ROM, Normal Inspection - Respiratory Exam Respiratory Exam: Clear to Ausculation Bilateral, NORMAL BREATHING PATTERN. absent: Accessory Muscle Use, Rhonchi, Wheezes, Respiratory Distress, Stridor - Cardiovascular Exam Cardiovascular Exam: REGULAR RHYTHM, +S1, +S2 - GI/Abdominal Exam GI & Abdominal Exam: Soft, Normal Bowel Sounds. absent: Distended, Firm, Guarding, Rigid, Tenderness, Rebound - Extremities Exam Extremities Exam: Full ROM, Normal Capillary Refill, Normal Inspection. absent: Calf Tenderness, Pedal Edema - Back Exam Back Exam: NORMAL INSPECTION - Neurological Exam Neurological Exam: Alert, Awake, Normal Gait, Oriented x3 - Skin Skin Exam: Dry, Intact, Normal Color, Warm Assessment and Plan - Assessment and Plan (Free Text) Assessment: 62 year old male with PMHx of HTN, HLD, T2DM, asthma, BPH, recent PNA presenting to ED with generalized weakness, dry cough with associated sob x 4 months. Unintentional weight loss within the last 3 months, b/l pleural effusions noted on CT chest with multiple mets of unknown origin. R-sided thoracentesis done 07/21. Fluid with significantly elevated RBCs and lymphocytes. Quantiferon gold positive. Biopsy report suggestive of disseminated TB. Started on RIPE therapy, continue isolation until 3 negative smears. Plan: Disseminated TB -Patient originally from [place] -unintentional weight loss (~10 kg in last 3 months) -decreased appetite -symptoms reportedly started after 6 week course of Humira infusions -quantiferon positive -AFB sputum preliminary # 1-3 negative -f/u finalized cultures -CT chest/abdomen/pelvis: Numerous too small to characterize thyroid nodules. Cluster of nodules in RUL lung up to 6mm. Innumerable tiny splenic hypodensit ies. Hepatic steatosis. Questional presence of serosal implant anterior to L hepatic lobe. Evidence of omental mets. Stomach is nondistended but thick-walled and edematous. Small to moderate pelvic free fluid. Mediastinal/prevascular and mesenteric adenopathy. -GI recs (Dr. Medrano) appreciated -EGD report (07/19): Z line irregular, 38 cm from the incisors. Biopsied. LA Grade C esophagitis. Submucosal nodule found in esophagus. Gastritis, biopsied. Congested duodenal mucosa, biopsed. Multiple duodenal ulcers, biopsed. -Protonix 40 mg PO daily -No further planned GI intervention at this time, will sign off case. Patient will benefit from additional outpatient evaluation and elective follow up of esophageal SM lesion -Surgery (Dr. Bright) recs appreciated -s/p diagnostic laparatomy with biopsy POD #3 -Biopsy report, peritoneal lesion: fragments of fibroconnective tissue s howing necrotizing granulomas. Rare Acid Fast Bacilli noted. Gram stain negative for fungal infection -ID recs (Dr. Jimenez) appreciated -started on RIPE therapy (07/26); continue isolation precautions until 3 negative smears Pleural effusions, bilaterally--improved -mycoplasma IgM negative, IgG positive -urine legionella negative -influenza negative -Urine culture negative -Blood Culture x 2 negative -CT chest report (06/06/18): prominent b/l pleural effusions, R>L, subsegmental atelectasis at b/l lung bases, focal calcified plaque involving L coronary artery and thoracic aorta. Fatty changes of the liver. Heterogenous attenuation and enhancement of thyroid gland. -CTA of the chest w/ contrast report (06/06/18): no evidence of PE. -CXR on admission: asymmetric elevation of R hemidiaphragm, unknown chronicity -CT chest on admission: Small to moderate R pleural effusion, trace L pleural effusion both with associated consolidations. Patchy infiltrate at R lung base may represent superimposed infection -Abdominal u/s: no evidence of portal vein thrombosis. Heterogenous liver. Echogenic foci noted in central portion of spleen. -IR recs (Dr. Uriarte) appreciated -s/p R thoracentesis (07/21), 950 cc zoe colored fluid drained -RBC 35,711 -WBC 4661 -Neutro 10 -Lympho 86 -[place] 1 -[place] 3 -Anaerobe Cx no growth -Pulmonology (Dr. Conner) recs appreciated -duonebs q4 prn Anemia of chronic disease, stable - Hgb normal on admission--> 11.7, now stable - FOBT negative x2 - Iron low/normal 49, TIBC low (210), %sat wnl, ferritin wnl - B12, folate wnl - Retic count 1 Transaminitis, resolved -AST/ALT normalized -Hepatitis panel negative -Avoid hepatotoxic agents -GI consulted (Mitchell) Hx of BPH -CT abdomen/pelvis: Heterogenous enlarged prostate gland containing calcifi cation -PSA wnl -tamsulosin 0.4 mg PO daily -finasteride 5 mg PO daily Impaired glucose tolerance -not on any home meds -A1C 5.6 Hx of HTN -Lopressor 50 mg PO daily -ASA 81 mg PO daily Hx of HLD -Crestor 10 mg PO HS PPx, Diet, Disposition -DVT ppx: scds, heparin 5000 units sc q8h -GI ppx: protonix 40 mg PO daily -Diet: HHD -PT on board -isolation precautions <Ady Hair - Last Filed: 07/30/18 11:23> Objective - Vital Signs/Intake and Output Vital Signs (last 24 hours): Temp Pulse Resp BP Pulse Ox 97.7 F 62 20 115/75 97 07/30/18 07:00 07/30/18 07:00 07/30/18 07:00 07/30/18 07:00 07/30/18 07:00 Intake and Output: 07/30/18 07/30/18 06:59 18:59 Intake Total 1000 Balance 1000 - Medications Medications: Current Medications Albuterol/Ipratropium (Duoneb 3 Mg/0.5 Mg (3 Ml) Ud) 3 ml INH RQ4 PRN PRN Reason: Shortness of Breath Last Admin: 07/21/18 12:45 Dose: 3 ml Aspirin (Aspirin Chewable) 81 mg PO DAILY [facility] Last Admin: 07/30/18 10:06 Dose: 81 mg Ethambutol HCl (Myambutol) 1,200 mg PO Q24H [facility]; Protocol Last Admin: 07/29/18 16:59 Dose: 1,200 mg Finasteride (Proscar) 5 mg PO DAILY [facility] Last Admin: 07/30/18 10:05 Dose: 5 mg Isoniazid (Niazid) 300 mg PO Q24H [facility]; Protocol Last Admin: 07/29/18 16:59 Dose: 300 mg Metoprolol Tartrate (Lopressor) 50 mg PO DAILY [facility] Last Admin: 07/30/18 10:14 Dose: 50 mg Pantoprazole Sodium (Protonix Ec Tab) 40 mg PO DAILY [facility] Last Admin: 07/30/18 10:05 Dose: 40 mg Polyethylene Glycol (Miralax) 17 gm PO DAILY PRN PRN Reason: Constipation Pyrazinamide (Pyrazinamide) 1,000 mg PO DAILY [facility]; Protocol Last Admin: 07/30/18 10:06 Dose: 1,000 mg Pyridoxine HCl (Vitamin B6) 100 mg PO DAILY [facility] Last Admin: 07/30/18 10:06 Dose: 100 mg Rifampin (Rifampin Cap) 600 mg PO DAILY [facility]; Protocol Last Admin: 07/30/18 10:05 Dose: 600 mg Rosuvastatin Calcium (Crestor) 5 mg PO HS [facility] Last Admin: 07/29/18 21:19 Dose: 5 mg Tamsulosin HCl (Flomax) 0.4 mg PO DAILY [facility] Last Admin: 07/30/18 10:06 Dose: 0.4 mg Zinc Sulfate (Zinc Sulfate 220 Mg Cap) 220 mg PO DAILY [facility] Last Admin: 07/30/18 10:05 Dose: 220 mg - Labs Labs: 07/29/18 07:04 07/29/18 07:04 PT 13.8 SECONDS (9.7-12.2) H 07/22/18 07:26 INR 1.3 07/22/18 07:26 APTT 31 SECONDS (21-34) 07/22/18 07:26 Attending/Attestation - Attestation I have personally seen and examined this patient.: Yes I have fully participated in the care of the patient.: Yes I have reviewed all pertinent clinical information, including history, physical exam and plan: Yes Notes (Text): 07/30/18 11:18 Medical attending: Patient was seen and examined by me. Agree with the above note by the resident The patient's third sputum AFB stain returned yesterday afternoon and is negative Patient is eager to leave. He denies pain, denies shortness of breath, the repeat CXRAY is stable. He showed me a card of the [facility] for Bruna Chung (whom we know from the past and whom and whom I have spoke to more than a few times in the past) However I called the [phone] number to reach her and I tried to leave message but the mailbox is full. Also I tried calling the number listed in the 07/27/2018 case aide note which is the number for the [facility] and the message was that they are closed on the weekends Patient wants to leave, however I told him we need to confirm everything either in person or in writing. Ady Hair
[2018-07-30] MEDS: Pantoprazole 40 mg EC Tab PO SCH (10:05)
[2018-07-30] MEDS: Pyridoxine 100 mg Tab PO SCH (10:06)
[2018-07-30 16:06] VITALS: TEMP 97.9
--- NOTE | 2018-07-31 07:06 | CP.PCM.PN ---
Objective - Vital Signs/Intake and Output Vital Signs (last 24 hours): Temp Pulse Resp BP Pulse Ox 97.9 F 74 20 110/69 95 07/30/18 16:00 07/30/18 16:00 07/30/18 16:00 07/30/18 16:00 07/30/18 16:00 Intake and Output: 07/31/18 07/31/18 06:59 18:59 Intake Total 1000 Balance 1000 - Medications Medications: Current Medications Albuterol/Ipratropium (Duoneb 3 Mg/0.5 Mg (3 Ml) Ud) 3 ml INH RQ4 PRN PRN Reason: Shortness of Breath Last Admin: 07/21/18 12:45 Dose: 3 ml Aspirin (Aspirin Chewable) 81 mg PO DAILY [facility] Last Admin: 07/30/18 10:06 Dose: 81 mg Ethambutol HCl (Myambutol) 1,200 mg PO Q24H [facility]; Protocol Last Admin: 07/30/18 17:27 Dose: 1,200 mg Finasteride (Proscar) 5 mg PO DAILY [facility] Last Admin: 07/30/18 10:05 Dose: 5 mg Isoniazid (Niazid) 300 mg PO Q24H [facility]; Protocol Last Admin: 07/30/18 17:27 Dose: 300 mg Metoprolol Tartrate (Lopressor) 50 mg PO DAILY [facility] Last Admin: 07/30/18 10:14 Dose: 50 mg Pantoprazole Sodium (Protonix Ec Tab) 40 mg PO DAILY [facility] Last Admin: 07/30/18 10:05 Dose: 40 mg Polyethylene Glycol (Miralax) 17 gm PO DAILY PRN PRN Reason: Constipation Pyrazinamide (Pyrazinamide) 1,000 mg PO DAILY [facility]; Protocol Last Admin: 07/30/18 10:06 Dose: 1,000 mg Pyridoxine HCl (Vitamin B6) 100 mg PO DAILY [facility] Last Admin: 07/30/18 10:06 Dose: 100 mg Rifampin (Rifampin Cap) 600 mg PO DAILY [facility]; Protocol Last Admin: 07/30/18 10:05 Dose: 600 mg Rosuvastatin Calcium (Crestor) 5 mg PO HS [facility] Last Admin: 07/30/18 21:24 Dose: 5 mg Tamsulosin HCl (Flomax) 0.4 mg PO DAILY [facility] Last Admin: 07/30/18 10:06 Dose: 0.4 mg Zinc Sulfate (Zinc Sulfate 220 Mg Cap) 220 mg PO DAILY [facility] Last Admin: 07/30/18 10:05 Dose: 220 mg - Labs Labs: 07/29/18 07:04 07/29/18 07:04 PT 13.8 SECONDS (9.7-12.2) H 07/22/18 07:26 INR 1.3 07/22/18 07:26 APTT 31 SECONDS (21-34) 07/22/18 07:26
[2018-07-31 08:03] VITALS: BP 104/66; PULSE 63; O2SAT 96
[2018-07-31] MEDS: Pantoprazole 40 mg EC Tab PO SCH (10:07)
[2018-07-31] MEDS: Pyridoxine 100 mg Tab PO SCH (10:08)
--- NOTE | 2018-07-31 17:25 | CP.PCM.DIS ---
Provider - Provider Date of Admission: 07/20/18 14:18 Attending physician: Polo Mejia MD Consults: 07/18/18 14:16 Hematology Oncology Consult Routine Comment: Consulting Provider: Rui Brown Consulting Physician: Rui Brown Reason for Consult: multiple mets of unknown origin, unintentional weight loss, weakness 07/18/18 18:51 Inpatient [employer] Core Measures Referral Routine Comment: Physician Instructions: Reason For Exam: Hx. of asthma 07/19/18 14:16 Physician Consult Routine Comment: Consulting Provider: Michael Uriarte Consulting Physician: Michael Uriarte Reason for Consult: lymph node biopsy Additional Comments: multiple lesions of metastatic malignancy. CT C/A/P revealed irregularity involving the stomach with lung lesions, splenic lesions, omental disease, and lymphadenopathy. 07/20/18 18:21 Pulmonology Consult Routine Comment: Consulting Provider: Christianne Barger Consulting Physician: Christianne Barger Reason for Consult: loculated R pleural effusion,sob,multiple mets unknown origin 07/21/18 12:05 General Surgery Consult Routine Comment: Consulting Provider: Daniel Ward Consulting Physician: Daniel Ward Reason for Consult: lymphadenopathy- assess for biopsy Infectious Disease Consult Routine Comment: Consulting Provider: Angel Jimenez Consulting Physician: Angel Jimenez Reason for Consult: positive quantiferon Time Spent in preparation of Discharge (in minutes): 180 Diagnosis - Discharge Diagnosis (1) Disseminated tuberculosis Status: Chronic (2) HTN (hypertension) Status: Chronic (3) HLD (hyperlipidemia) Status: Chronic (4) BPH (benign prostatic hyperplasia) Status: Chronic Hospital Course - Lab Results Lab Results: Micro Results 07/22/18 08:00 Unknown - Throat Mycobacterial Culture - Preliminary 07/23/18 06:21 Unknown - Throat Mycobacterial Culture - Preliminary 07/27/18 19:29 Other: Please Indicate Mycobacterial Culture - Preliminary 07/24/18 15:33 Peritoneal Fluid Gram Stain - Final 07/24/18 15:33 Peritoneal Fluid Body Fluid Culture - Final No growth. 07/24/18 15:33 Other: Please Indicate Mycobacterial Culture - Preliminary 07/21/18 17:06 Other: Please Indicate Fungal Culture - Preliminary 07/21/18 17:06 Peritoneal Fluid Anaerobic Culture - Final NO ANAEROBES ISOLATED. 07/18/18 12:18 Blood Blood Culture - Final NO GROWTH AFTER 5 DAYS 07/18/18 12:18 Blood Gram Stain - Final TEST NOT PERFORMED 07/18/18 09:59 Blood Blood Culture - Final NO GROWTH AFTER 5 DAYS 07/18/18 09:59 Blood Gram Stain - Final TEST NOT PERFORMED 07/18/18 09:16 Urine,Summers Urine Culture - Final No Growth (<1,000 CFU/ML) Most Recent Lab Values WBC 4.2 K/uL (4.8-10.8) L 07/29/18 07:04 RBC 4.08 Mil/uL (4.40-5.90) L 07/29/18 07:04 Hgb 11.2 g/dL (12.0-18.0) L 07/29/18 07:04 Hct 33.0 % (35.0-51.0) L 07/29/18 07:04 MCV 81.0 fL (80.0-94.0) 07/29/18 07:04 MCH 27.5 pg (27.0-31.0) 07/29/18 07:04 MCHC 33.9 g/dL (33.0-37.0) 07/29/18 07:04 RDW 18.4 % (11.5-14.5) H 07/29/18 07:04 Plt Count 306 K/uL (130-400) 07/29/18 07:04 MPV 7.2 fL (7.2-11.7) 07/29/18 07:04 Neut % (Auto) 51.5 % (50.0-75.0) 07/29/18 07:04 Lymph % (Auto) 26.6 % (20.0-40.0) 07/29/18 07:04 [place]itt % (Auto) 12.7 % (0.0-10.0) H 07/29/18 07:04 Eos % (Auto) 7.2 % (0.0-4.0) H 07/29/18 07:04 Baso % (Auto) 2.0 % (0.0-2.0) 07/29/18 07:04 Neut # (Auto) 2.1 K/uL (1.8-7.0) 07/29/18 07:04 Lymph # (Auto) 1.1 K/uL (1.0-4.3) 07/29/18 07:04 Dewitt # (Auto) 0.5 K/uL (0.0-0.8) 07/29/18 07:04 Eos # (Auto) 0.3 K/uL (0.0-0.7) 07/29/18 07:04 Baso # (Auto) 0.1 K/uL (0.0-0.2) 07/29/18 07:04 Neutrophils % (Manual) 72 % (50-75) 07/18/18 08:16 Band Neutrophils % 7 % (0-2) H 07/18/18 08:16 Lymphocytes % (Manual) 9 % (20-40) L 07/18/18 08:16 Monocytes % (Manual) 8 % (0-10) 07/18/18 08:16 Eosinophils % (Manual) 4 % (0-4) 07/18/18 08:16 Platelet Estimate Normal (NORMAL) 07/18/18 08:16 Anisocytosis (manual) Slight 07/18/18 08:16 ESR 32 mm/hr (0-15) H 07/21/18 11:33 Retic Count 1.0 % (0.5-1.5) 07/19/18 08:10 PT 13.8 SECONDS (9.7-12.2) H 07/22/18 07:26 INR 1.3 07/22/18 07:26 APTT 31 SECONDS (21-34) 07/22/18 07:26 pO2 39 mm/Hg (30-55) 07/18/18 09:25 VBG pH 7.41 (7.32-7.43) 07/18/18 09:25 VBG pCO2 37 mmHg (40-60) L 07/18/18 09:25 VBG HCO3 23.7 mmol/L 07/18/18 09:25 VBG Total CO2 24.6 mmol/L (22-28) 07/18/18 09:25 VBG O2 Sat (Calc) 67.7 % (40-65) H 07/18/18 09:25 VBG Base Excess -0.8 mmol/L (0.0-2.0) L 07/18/18 09:25 VBG Potassium 3.5 mmol/L (3.6-5.2) L 07/18/18 09:25 Sodium 131.0 mmol/l (132-148) L 07/18/18 09:25 Chloride 99.0 mmol/L (98-107) 07/18/18 09:25 Glucose 123 mg/dl (75-110) H 07/18/18 09:25 Lactate 1.5 mmol/L (0.7-2.1) 07/18/18 09:25 Sodium 136 mmol/L (132-148) 07/29/18 07:04 Potassium 3.7 mmol/L (3.6-5.2) 07/29/18 07:04 Chloride 104 mmol/L (98-107) 07/29/18 07:04 Carbon Dioxide 26 mmol/L (22-30) 07/29/18 07:04 Anion Gap 9 (10-20) L 07/29/18 07:04 BUN 15 mg/dL (9-20) 07/29/18 07:04 Creatinine 1.1 mg/dL (0.8-1.5) 07/29/18 07:04 Est GFR ( Amer) > 60 07/29/18 07:04 Est GFR (Non-Af Amer) > 60 07/29/18 07:04 POC Glucose (mg/dL) 117 mg/dL (65-110) H 07/18/18 21:24 Random Glucose 87 mg/dL (75-110) 07/29/18 07:04 Hemoglobin A1c 5.7 % (4.2-6.5) 07/18/18 13:20 Calcium 9.0 mg/dl (8.6-10.4) 07/29/18 07:04 Phosphorus 3.7 mg/dL (2.5-4.5) 07/29/18 07:04 Magnesium 2.2 mg/dL (1.6-2.3) 07/29/18 07:04 Iron 49 ug/dL (49-181) 07/21/18 06:42 TIBC 210 ug/dL (250-450) L 07/21/18 06:42 % Saturation 23 (20-55) 07/21/18 06:42 Transferrin 126.20 mg/dL (206-381) L 07/21/18 06:42 Ferritin 169.0 ng/mL 07/21/18 06:42 Total Bilirubin 0.5 mg/dL (0.2-1.3) 07/29/18 07:04 AST 32 U/L (17-59) 07/29/18 07:04 ALT 41 U/L (21-72) 07/29/18 07:04 Alkaline Phosphatase 89 U/L (38-126) 07/29/18 07:04 Lactate Dehydrogenase 549 U/L (313-618) 07/19/18 08:10 Troponin I < 0.0120 ng/mL (0.00-0.120) 07/18/18 08:16 C-Reactive Protein 25.70 mg/L (0.0-9.9) H 07/18/18 15:08 NT-Pro-B Natriuret Pep 41.9 pg/mL (0-900) 07/18/18 08:16 Total Protein 7.3 g/dL (6.3-8.3) 07/29/18 07:04 Albumin 3.7 g/dL (3.5-5.0) 07/29/18 07:04 Globulin 3.6 gm/dL (2.2-3.9) 07/29/18 07:04 Albumin/Globulin Ratio 1.0 (1.0-2.1) 07/29/18 07:04 Lipase 126 U/L (23-300) 07/18/18 15:08 Carcinoembryonic Ag 0.7 ng/mL (0-3.0) 07/18/18 13:20 CA 19-9 Antigen 39.1 U/mL (0-37) H 07/18/18 13:20 Prostate Specific Ag 3.67 ng/mL (0.00-4.0) 07/18/18 15:08 Free PSA 0.3 ng/mL 07/18/18 17:12 % Free PSA 8 % (calc) (>25) L 07/18/18 17:12 Total PSA 4.0 ng/mL (< or = 4.0) 07/18/18 17:12 Vitamin B12 427 pg/mL (239-931) 07/21/18 06:42 Folate 7.0 ng/mL 07/21/18 06:42 Free T4 1.81 ng/dL (0.78-2.19) 07/18/18 13:20 TSH 3rd Generation 1.65 mIU/L (0.46-4.68) 07/18/18 13:20 Venous Blood Potassium 3.5 mmol/L (3.6-5.2) L 07/18/18 09:25 Urine Color Zoe (YELLOW) 07/18/18 08:16 Urine Clarity Turbid (Clear) 07/18/18 08:16 Urine pH 5.0 (5.0-8.0) 07/18/18 08:16 Ur Specific [place] 1.031 (1.003-1.030) H 07/18/18 08:16 Urine Protein 2+ mg/dL (NEGATIVE) H 07/18/18 08:16 Urine Glucose (UA) Normal mg/dL (Normal) 07/18/18 08:16 Urine Ketones Negative mg/dL (NEGATIVE) 07/18/18 08:16 Urine Blood 1+ (NEGATIVE) H 07/18/18 08:16 Urine Nitrate Negative (NEGATIVE) 07/18/18 08:16 Urine Bilirubin Negative (NEGATIVE) 07/18/18 08:16 Urine Urobilinogen Normal mg/dL (0.2-1.0) 07/18/18 08:16 Ur Leukocyte Esterase Neg Mainor/uL (Negative) 07/18/18 08:16 Urine WBC (Auto) 4 /hpf (0-5) 07/18/18 08:16 Amorphous Sediment Few /ul (<OCC) H 07/18/18 08:16 Fluid Source Pleural/thoracentesi 07/21/18 17:02 Fluid Appearance Bloody (CLEAR) 07/21/18 17:02 Fluid pH 7.9 07/21/18 16:56 Fluid pH Source Body fluid 07/21/18 16:56 Fluid WBC 4661.0 /mm3 (0.0-300.0) H 07/21/18 17:02 Fluid RBC 97115.0 /mm3 (0.0-0.0) H 07/21/18 17:02 Fluid Tot Cell Count 100 (0-0) H 07/21/18 17:02 Fluid Neutrophils 10.0 % (0-0) H 07/21/18 17:02 Fluid Lymphocytes 86.0 % (0-0) H 07/21/18 17:02 Fld Monocyte/Macrophag 1 % (0-0) H 07/21/18 17:02 Fluid Comment 07/21/18 17:02 Pleural Total Protein 5.7 g/dL 07/21/18 16:56 Pleural LDH 690 U/L 07/21/18 16:56 Pleural Glucose 66 mg/dL 07/21/18 16:56 Stool Occult Blood Negative (NEGATIVE) 07/21/18 22:44 Hepatitis A IgM Ab Negative (NEGATIVE) 07/18/18 17:08 Hep Bs Antigen Negative (NEGATIVE) 07/18/18 17:08 Hep B Core IgM Ab Negative (NEGATIVE) 07/18/18 17:08 Hepatitis C Antibody Negative (NEGATIVE) 07/18/18 17:08 HIV 1&2 Antibody Screen Negative (NEGATIVE) 07/20/18 17:03 Influenza Typ A,B (EIA) Negative for flu a/b (NEGATIVE) 07/18/18 15:08 Ur L.pneumophila Ag Negative (NEGATIVE) 07/18/18 15:08 Mycoplasma pneumon IgG 1.73 (<=0.90) H 07/18/18 15:08 Mycoplasma pneumon IgM 16 U/mL (<770) 07/18/18 15:08 TB Test (QFT) Nil 0.11 IU/mL 07/22/18 07:26 TB Test Mitogen - Nil 6.82 IU/mL 07/22/18 07:26 TB Test Antigen - Nil 5.52 IU/mL 07/22/18 07:26 TB Test TB - Nil 4.78 IU/mL 07/22/18 07:26 TB Test (QFT) Positive (Negative) H 07/22/18 07:26 Blood Type A POSITIVE 07/22/18 07:26 Antibody Screen Negative 07/22/18 07:26 - Hospital Course Hospital Course: On admission: Patient is a 62 year old male with past medical history of hypertension, hyperlipidemia, BPH, asthma, diabetes, recent pneumonia presenting to ED with generalized weakness for the past 4 months with associated intermittent shortness of breath and dry, nonproductive cough. Patient states he initially went to an ENT doctor 4 months ago and was diagnosed with asthma, was given an inhaler but his cough/shortness of breath did not improve. He was then evaluated by Pulmonology and CT chest obtained demonstrated bilateral pleural effusions, R>L. He was given unknown antibiotics and lasix. He states the lasix helped with his respiratory symptoms for a little bit but that the cough is recurring. The past few days, he has felt very weak in his b/l LE and states it is difficult for him to get out of bed sometimes. Of note, patient has unintentional weight loss (~22 lbs within the last 3 months) and decreased appetite during this time. He denies any fevers but does endorse chills sometimes. No headaches, dizziness, LOC, vision changes, chest pain, palpitations, abdominal pain, nausea/vomiting/diarrhea, dysuria, changes in stool, hematemesis or hematochezia. No recent travel or sick contacts. On hospitalization: Patient admitted for evaluation of weakness, dry cough and weight loss within last three months. CXR on admission shows asymmetric elevation of R hemidiaphragm, unknown chronicity. CT chest on admission shows Small to moderate R pleural effusion, trace L pleural effusion both with associated consolidations. Patchy infiltrate at R lung base may represent superimposed infection. CT chest/abd and pelvis shows Numerous too small to characterize thyroid nodules. Cluster of nodules in RUL lung up to 6mm. Innumerable tiny splenic hypodensities. Hepatic steatosis. Questional presence of serosal implant anterior to L hepatic lobe. Evidence of omental mets. Stomach is nondistended but thick-walled and edematous. Small to moderate pelvic free fluid. Mediastinal/prevascular and mesenteric adenopathy. GI on board, EGD done 07/19 shows Z line irregular, 38 cm from the incisors. Biopsied. LA Grade C esophagitis. Submucosal nodule found in esophagus. Gastritis, biopsied. Congested duodenal mucosa, biopsed. Multiple duodenal ulcers, biopsed. Biopsies: severe ulcerative esophagitis, mild chronic gastritis, mod-severe duodenitis. Patient underwent right thoracentesis 07/21 by IR for right pleural effusion, with 950 cc of zoe colored fluid drained, Anaerobe Cx no growth. Quantiferon gold test positive. Surgery on board, performed diagnostic laparoscopy, peritoneal biopsy on omentum. Biopsy report, peritoneal lesion: fragments of fibroconnective tissue showing necrotizing granulomas. Rare Acid Fast Bacilli noted. Gram stain negative for fungal infection. Patient placed on TB regime and isolation precautions. AFB sputum noted for negative prelim results x 3. TB clinic arrangement made for patient to continue treatment as outpatient. Management of patient's history of HTN, HLD and BPH with home meds. On discharge: the following instruction were given to patient Patient is stable to discharge as per Dr Mejia Patient to continue treatment with [facility] and human [facility]. Patient to follow with department for daily treatment, and go to the office tomorrow to obtain treatment. Patient to take Protonix 40mg per mouth once a day, we are giving 2 weeks supply, please follow up with primary for refills. Patient to continue home medication, Patient has medications at home, must follow up with PMD dr Buckley If symptoms recur or worsens, please return to the ER as soon as possible. Division of Health [facility] chest clinic [address] [place] [address] tel: [phone] This is a short summary of Patient's hospitalization course. For more information, please refer to patient's EMR. - Date & Time of H&P Date of H&P: 07/18/18 Time of H&P: 14:23 Discharge Exam - Head Exam Head Exam: ATRAUMATIC, NORMAL INSPECTION, NORMOCEPHALIC - Eye Exam Eye Exam: EOMI, Normal appearance - Respiratory Exam Respiratory Exam: Clear to PA & Lateral, NORMAL BREATHING PATTERN, UNREMARKABLE. absent: Rales, Rhonchi, Wheezes - Cardiovascular Exam Cardiovascular Exam: REGULAR RHYTHM, +S1, +S2 - GI/Abdominal Exam GI & Abdominal Exam: Normal Bowel Sounds, Soft, Unremarkable - Extremities Exam Extremities exam: full ROM, normal inspection - Back Exam Back exam: NORMAL INSPECTION - Neurological Exam Neurological exam: Alert, Normal Gait, Oriented x3 - Psychiatric Exam Psychiatric exam: Normal Affect, Normal Mood - Skin Skin Exam: Dry, Intact, Warm Discharge Plan - Discharge Medications Prescriptions: Ethambutol [Myambutol] 1,200 mg PO Q24H 14 Days tab Isoniazid [Niazid] 300 mg PO Q24H 14 Days tab Pantoprazole [Protonix EC Tab] 40 mg PO DAILY 14 Days #14 ect Pyrazinamide 1,000 mg PO DAILY 14 Days tab Pyridoxine [Vitamin B6] 100 mg PO DAILY 14 Days tab rifAMPin [Rifampin Cap] 600 mg PO DAILY 14 Days cap - Follow Up Plan Condition: STABLE Disposition: HOME/ ROUTINE Instructions: Pneumonia, Adult (DC), Hyponatremia (DC), Ethambutol, Isoniazid, Pyrazinamide, Pyridoxine, Rifampin, Weakness (ED) Additional Instructions: Patient is stable to discharge as per Dr Mejia Patient to continue treatment with [facility] and human resources. Patient to follow with department for daily treatment, and go to the office tomorrow to obtain treatment. Patient to take Protonix 40mg per mouth once a day, we are giving 2 weeks supply, please follow up with primary for refills. Patient to continue home medication, Patient has medications at home, must follow up with PMD dr Buckley If symptoms recur or worsens, please return to the ER as soon as possible. Division of Health [facility] chest clinic [address] [place] [address] tel: [phone]
== END 2018-07-31 16:28 | disposition home or self-care (01) | DRG 898 ==
LOC: C.ER 07:15 → C.9E 12:11 → C.3T 15:10 → OBSVTOIN 07-20 14:18 → C.3T 07-21 14:06
PROVIDERS: ADMIT Internal Medicine; ATTEND Internal Medicine
PROC: 0DB98ZX Excision of Duodenum, Via Natural or Artificial Opening Endoscopic, Diagnostic (ICD-10-PCS; 2018-07-20)
PROC: 0DB68ZX Excision of Stomach, Via Natural or Artificial Opening Endoscopic, Diagnostic (ICD-10-PCS; 2018-07-20)
PROC: 0DB28ZX Excision of Middle Esophagus, Via Natural or Artificial Opening Endoscopic, Diagnostic (ICD-10-PCS; 2018-07-20)
PROC: 0W993ZX Drainage of Right Pleural Cavity, Percutaneous Approach, Diagnostic (ICD-10-PCS; 2018-07-21)
PROC: 0FB04ZX Excision of Liver, Percutaneous Endoscopic Approach, Diagnostic (ICD-10-PCS; 2018-07-24)
PROC: 0W9G4ZX Drainage of Peritoneal Cavity, Percutaneous Endoscopic Approach, Diagnostic (ICD-10-PCS; 2018-07-24)
PROC: 0DBU4ZX Excision of Omentum, Percutaneous Endoscopic Approach, Diagnostic (ICD-10-PCS; principal; 2018-07-24 09:15)
DX: A19.9 Miliary tuberculosis, unspecified (principal); E87.1 Hypo-osmolality and hyponatremia; J90 Pleural effusion, not elsewhere classified; R18.8 Other ascites; I10 Essential (primary) hypertension; Z86.73 Personal history of transient ischemic attack (TIA), and cerebral infarction without residual deficits; E11.9 Type 2 diabetes mellitus without complications; N40.0 Benign prostatic hyperplasia without lower urinary tract symptoms; E78.5 Hyperlipidemia, unspecified; J45.909 Unspecified asthma, uncomplicated; K22.10 Ulcer of esophagus without bleeding; K29.00 Acute gastritis without bleeding; R59.0 Localized enlarged lymph nodes; L40.9 Psoriasis, unspecified; R63.4 Abnormal weight loss; Z87.891 Personal history of nicotine dependence; K26.9 Duodenal ulcer, unspecified as acute or chronic, without hemorrhage or perforation; K29.50 Unspecified chronic gastritis without bleeding; D63.8 Anemia in other chronic diseases classified elsewhere; K66.9 Disorder of peritoneum, unspecified; C80.1 Malignant (primary) neoplasm, unspecified